=== PATIENT | female | born 1970 | race Caucasian/White ===

== ENCOUNTER 2016-10-15 00:56 | Inpatient (IN) | payer OTHER ==
[2016-10-15] VITALS (11 sets, daily range): BP systolic 99–123; BP diastolic 56–69; PULSE 58–88; RESP 18–20; TEMP 98; Ht 167.6 cm; Wt 84.0 kg
[~2016-10-15] VITALS: Ht 167.6 cm; Wt 84.0 kg
[~2016-10-15 00:56] MED LIST: DEPRESSION MEDS; FLUO20CA22; NAPR-260 PO; OMEP20CA16; TRAM50TA2 PO
[2016-10-15] MEDS ORDERED: ASPIRIN 325 MG TAB PO STA (02:05)
[2016-10-15] MEDS ORDERED: SOD CHLORIDE 0.9% 1,000 ML IV STA (02:05)
--- NOTE | 2016-10-15 02:19 | ERA ---
ER Documentation Chief Complaint Date/Time DATE: 10/15/16 TIME: 02:16 Chief Complaint PT C/O TOTAL R SIDED NUMBNESS, DIZZY, R BLURRY VISION SINCE 1600 HPI This is a 46-year-old female who stated that at 4 PM this afternoon she noticed that her right arm was tingling started to feel heavy. She states over the next couple of hours her right face and her right leg began to feel the same. She is currently complaining of right facial, right upper and right lower extremity mild tingling with heaviness. No blurry vision no loss of vision no speech change. No prior history of TIA or stroke.. She says her symptoms of gradually gotten worse over the past couple of hours so she came in for evaluation. ROS All systems reviewed and are negative except as per history of present illness. Medications Home Meds Active Scripts Naproxen* (Naprosyn*) 500 Mg Tablet, 500 MG PO BID Y for PAIN AND/OR INFLAMMATION, #30 TAB Prov:HENRIETTA HINOJOSA MD 02/22/16 Tramadol HCl (Tramadol HCl) 50 Mg Tablet, 50 MG PO Q6 Y for PAIN, #15 TAB Prov:KRISTIE MORENO NP 10/14/15 Reported Medications Omeprazole* (Omeprazole*) 20 Mg Capsule., DAILY 12/09/12 Fluoxetine Hcl* (Fluoxetine Hcl*) 20 Mg Capsule, DAILY 12/09/12 [Depression Meds] No Conflict Check 08/28/12 Allergies Allergies: Coded Allergies: No Known Allergy (Unverified , 10/13/15) PMhx/Soc History of Surgery: Yes (TUBAL LIGATION, C SECTION SECTION) Anesthesia Reaction: No Hx Neurological Disorder: No Hx Respiratory Disorders: No Hx Cardiac Disorders: No Hx Psychiatric Problems: Yes (DEPRESSION , ANXIETY) Hx Miscellaneous Medical Probl: Yes (gastritis) Hx Alcohol Use: No Hx Substance Use: No Hx Tobacco Use: No FmHx Family History: No coronary disease Physical Exam Vitals Vital Signs Date Time Temp Pulse Resp B/P Pulse Ox O2 Delivery O2 Flow Rate FiO2 10/15/16 02:14 Nasal Cannula 2 10/15/16 02:04 97 18 128/70 99 Room Air 10/15/16 01:11 97.5 92 16 134/64 99 Physical Exam Const: Well-developed, well-nourished Head: Atraumatic, normocephalic Eyes: Normal Conjunctiva, PERRLA, EOMI, normal sclera, no nystagmus ENT: Normal External Ears, Nose and Mouth, moist mucus membranes. Neck: Full range of motion. No meningismus, no lymphadenopathy. Resp: Clear to auscultation bilaterally, no wheezing, rhonchi, rales Cardio: Regular rate and rhythm, no murmurs, S1 S2 present Abd: Soft, non tender x 4, non distended. Normal bowel sounds, no guarding or rebound, no pulsitile abdominal masses or bruits Skin: No petechiae or rashes, no ecchymosis , no maculopapular rash Back: No midline or flank tenderness Ext: No cyanosis, or edema, FROM x 4, normal inspection, neurovascularly intact x 4 Neur: Awake and alert, STR 5/5 x 2, sensation intact x 2, there is slight right upper extremity pronator drift, right lower extremity strength is 3 -4 out of 5 she can only hold it up for a few seconds., Right arm and leg and face of slight tingling sensation, cerebellum intact Psych: Normal Mood and Affect Result Diagram: 10/15/16 0240 Results 24 hrs Laboratory Tests Test 10/15/16 02:40 White Blood Count 12.710^3/ul Red Blood Count 4.1310^6/ul Hemoglobin 11.2g/dl Hematocrit 34.3% Mean Corpuscular Volume 83.1fl Mean Corpuscular Hemoglobin 27.1pg Mean Corpuscular Hemoglobin Concent 32.7g/dl Red Cell Distribution Width 21.6% Platelet Count 53015^3/UL Mean Platelet Volume 11.2fl Neutrophils % 58.2% Lymphocytes % 29.5% Monocytes % 7.6% Eosinophils % 3.6% Basophils % 0.6% Nucleated Red Blood Cells % 0.0/100WBC Neutrophils # 7.410^3/ul Lymphocytes # 3.710^3/ul Monocytes # 1.010^3/ul Eosinophils # 0.510^3/ul Basophils # 0.110^3/ul Nucleated Red Blood Cells # 0.010^3/ul Prothrombin Time Pending Prothrombin Time Ratio Pending INR International Normalized Ratio Pending Activated Partial Thromboplast Time 29.7Sec Current Medications Medications (Trade) Dose Ordered Sig/López Route PRN Reason Start Time Stop Time Status Last Admin Dose Admin Sodium Chloride (NS) 1,000 ml @ 1,000 mls/hr Q1H STAT IV 10/15/16 02:05 10/15/16 03:04 DC 10/15/16 02:43 Aspirin (Aspirin) 325 mg ONCE STAT PO 10/15/16 02:05 10/15/16 02:08 DC 10/15/16 02:43 Procedures/MDM EKG: Rate/Rhythm: [Normal Sinus Rhythm,NL intervals] QRS, ST, QT: NORMAL MN, QRS, QT] Impression: [NORMAL EKG] The patient is not a TPA candidate due to onset of time is far outside of the window She received normal saline and aspirin I will admit her for stroke workup. PROCEDURE: CT Brain without contrast. CLINICAL INDICATION: Possible stroke, dizziness TECHNIQUE: A CT of the brain was performed utilizing axial imaging from the skull base through the vertex without IV contrast. Multiplanar reformatted images were made. Images were reviewed on a PACS workstation. The CTDIvol is 45.01 mGy and the DLP is 720.23 mGycm. One or more the following dose reduction techniques were utilized: Automated exposure control, adjustment of the mA/ or kV according to patient's size, or use of iterative reconstruction technique. COMPARISON: 12/09/2012 FINDINGS: There is no intracranial hemorrhage, mass effect, or midline shift. No extra- axial fluid collection is seen. The ventricles and sulci are normal in size and configuration. The density of the brain is normal, and the knight white matter differentiation appears well-preserved. The patient again appears to be status post left mastoidectomy and middle ear surgery. IMPRESSION: 1. No evidence of acute intracranial pathology. 2. The brain is normal in appearance. 3. The patient again appears to be status post left mastoidectomy and middle ear surgery. RPTAT: HJES .Issac Pelletier MD, Date Time Electronically viewed and signed by .Issac Pelletier MD, on 10/15/2016 03:13 .S/ CC: NELLY CORTEZ DO PROCEDURE: Chest. CLINICAL INDICATION: Chest pain. TECHNIQUE: Single frontal view of the chest was obtained. COMPARISON: 10/13/2015. FINDINGS: The cardiac silhouette is within normal limits. The aortic arch is unremarkable. There is no focal consolidation, vascular congestion or pleural effusion. There is no pneumothorax. IMPRESSION: No evidence for active cardiopulmonary disease. .Jose Daniel Cornell MD, MD Date Time Electronically viewed and signed by .Jose Daniel Cornell MD, MD on 10/15/2016 03:26 .T/ CC: NELLY CORTEZ DO Departure Diagnosis: Primary Impression: CVA (cerebral vascular accident) Qualified Code: I63.9 - Cerebrovascular accident (CVA), unspecified mechanism Condition: Stable NELLY CORTEZ DO October 15, 2016 02:19
[2016-10-15 03:07] LABS: ADD SCAN DIFF NO
[2016-10-15 03:12] LABS: BASOPHIL # 0.1 10^3/ul (0.0-0.1); BASOPHILS % 0.6 % (0.0-2.0); EOSINOPHILS # 0.5 10^3/ul (0.0-0.5); EOSINOPHILS % 3.6 % (0.0-7.0); HEMATOCRIT 34.3 % (37.0-47.0); HEMOGLOBIN 11.2 g/dl (12.0-16.0); LYMPHOCYTES # 3.7 10^3/ul (0.8-2.9); LYMPHOCYTES % 29.5 % (15.0-51.0); MEAN CORPUSCULAR HEMOGLOBIN 27.1 pg (29.0-33.0); MEAN CORPUSCULAR HGB CONC 32.7 g/dl (32.0-37.0); MEAN CORPUSCULAR VOLUME 83.1 fl (82.0-101.0); MEAN PLATELET VOLUME 11.2 fl (7.4-10.4); MONOCYTES % 7.6 % (0.0-11.0); NEUTROPHIL # 7.4 10^3/ul (1.6-7.5); NEUTROPHILS % 58.2 % (39.0-77.0); PLATELET COUNT 293 10^3/UL (140-415); RED BLOOD COUNT 4.13 10^6/ul (4.20-5.40); RED CELL DISTRIBUTION WIDTH 21.6 % (11.5-14.5); WHITE BLOOD COUNT 12.7 10^3/ul (4.8-10.8)
--- NOTE | 2016-10-15 03:13 | RADRPT ---
PROCEDURE: CT Brain without contrast. CLINICAL INDICATION: Possible stroke, dizziness TECHNIQUE: A CT of the brain was performed utilizing axial imaging from the skull base through the vertex without IV contrast. Multiplanar reformatted images were made. Images were reviewed on a [employer] workstation. The CTDIvol is 45.01 mGy and the DLP is 720.23 mGycm. One or more the following dose reduction techniques were utilized: Automated exposure control, adjus tment of the mA/ or kV according to patient's size, or use of iterative reconstruction technique. COMPARISON: 12/09/2012 FINDINGS: There is no intracranial hemorrhage, mass effect, or midline shift. No extra-axial fluid collection is seen. The ventricles and sulci are normal in size and configuration. The density of the brain is normal, and the knight white matter differentiation appears well-preserved. The patient again appears to be status post left mastoidectomy and middle ear surgery. IMPRESSION: 1. No evidence of acute intracranial pathology. 2. The brain is normal in appearance. 3. The patient again appears to be status post left mastoidectomy and middle ear surgery. RPTAT: HJES .Issac Pelletier MD, Date Time Electronically viewed and signed by .Issac Pelletier MD, MD on 10/15/2016 03:13 .S/
[2016-10-15 03:21] LABS: PARTIAL THROMBOPLASTIN TIME 29.7 Sec (25.0-35.0)
[2016-10-15 03:24] LABS: ALBUMIN 3.9 g/dl (3.3-4.9); CHLORIDE 105 mmol/L (97-110); POTASSIUM 3.5 mmol/L (3.5-5.1); SODIUM 140 mmol/L (135-144)
[2016-10-15 03:25] LABS: INR 1.06; PROTIME 13.8 Sec (12.2-14.2); PT RATIO 1.1
[2016-10-15 03:26] LABS: ANION GAP 12 (8-16); ASPARTATE AMINO TRANSFERASE 43 IU/L (15-46); BILIRUBIN,INDIRECT 0.2 mg/dl (0-1.1); BILIRUBIN,TOTAL 0.2 mg/dl (0.2-1.3); CARBON DIOXIDE 27 mmol/L (21-31); CREATININE 0.54 mg/dl (0.44-1.00)
--- NOTE | 2016-10-15 03:26 | RADRPT ---
PROCEDURE: Chest. CLINICAL INDICATION: Chest pain. TECHNIQUE: Single frontal view of the chest was obtained. COMPARISON: 10/13/2015. FINDINGS: The cardiac silhouette is within normal limits. The aortic arch is unremarkable. There is no focal consolidation, vascular congestion or pleural effusion. There is no pneumothorax. IMPRESSION: No evidence for active cardiopulmonary disease. .Jose Daniel Cornell MD, Date Time Electronically viewed and signed by .Jos eDaniel Cornell MD, on 10/15/2016 03:26 .T/
[2016-10-15 03:27] LABS: ALANINE AMINOTRANSFERASE 57 IU/L (13-69); ALBUMIN/GLOBULIN RATIO 1.14; ALKALINE PHOSPHATASE 120 IU/L (42-121); BLOOD UREA NITROGEN 14 mg/dl (7-20); CALCIUM 9.3 mg/dl (8.4-10.2); GLUCOSE 110 mg/dl (70-220); TOTAL PROTEIN 7.3 g/dl (6.1-8.1)
[2016-10-15] MEDS: SOD CHLORIDE 0.9% 1,000 ML IV SCH ×2 (03:29→10:21)
[2016-10-15] MEDS ORDERED: ONDANSETRON 4 MG INJ IV PRN ×2 (03:30→08:00)
[2016-10-15] MEDS ORDERED: ACETAMINOPHEN 325 MG TAB PO PRN (03:30)
[2016-10-15 03:45] LABS: TROPONIN-I < 0.012 ng/ml (0.00-0.12)
--- NOTE | 2016-10-15 06:32 | HP ---
Date/Time of Note Date/Time of Note DATE: 10/15/16 TIME: 06:19 Assessment/Plan VTE Prophylaxis VTE Prophylaxis Intervention: heparin Assessment/Plan Assessment/Plan 1. Acute CVA - Head CT was neg for acute findings - will obtain MRI of brain, carotid doppler u/s and 2D-echo - will place on aspirin and statin - Neurology consult - Physical therapy - check A1c and fasting lipids in am and trend trops 2. Hx of GERD/Gastritis - PPI HPI/ROS Admit Date/Time Admit Date/Time October 15, 2016 at 03:30 Hx of Present Illness This is a 56 yo female with history of GERD/Gastritis who presented to ER c/o right sided facial, as well as upper and lower ext numbness and tingling sensation. Also reported right upper ext weakness, which has now resolved. Main complain now is "my head is sleeping" and she points at her entire head. Denied slurred speech, seizure like activity, chest pain, SOB. On physical exam however, she has a slight left sided facial droop. Denied similar symptoms in the past. In ER, head CT was neg. vitals were stable. . PMH/Family/Social Social History Smoking Status: Never smoker Exam/Review of Systems Vital Signs Vitals Vital Signs Date Time Temp Pulse Resp B/P Pulse Ox O2 Delivery O2 Flow Rate FiO2 10/15/16 05:16 98.3 90 20 115/61 98 10/15/16 03:00 Room Air 10/15/16 02:14 2 Exam Constitutional: alert, oriented, well developed Head: atraumatic, normocephalic Eyes: EOMI, PERRL ENMT: other (left sided mild facial droop) Respiratory: clear to auscultation, normal air movement Cardiovascular: nl pulses, regular rate and rhythm Gastrointestinal: non-tender, soft Extremities: normal pulses Neurological: other (mild left sided droop. no weakness and sensations are intact) Labs Result Diagram: 10/15/16 0240 10/15/16 0240 Medications Medications Current Medications Sodium Chloride (NS) 1,000 ml @ 80 mls/hr [id number] IV ; Start 10/15/16 at 03:29; Stop 10/15/16 at 15:58 YI REBOLLAR MD October 15, 2016 06:31
[2016-10-15] MEDS ORDERED: LORAZEPAM 2 MG INJ IV PRN (08:00)
[2016-10-15] MEDS ORDERED: NACL 0.9% 3 ML SYG IV SCH (08:00)
--- NOTE | 2016-10-15 08:58 | RADRPT ---
PROCEDURE: US Carotids. CLINICAL INDICATION: bruit , TIA TECHNIQUE: Multiple sonographic of the carotid bifurcation region and vertebral arteries were obta ined utilizing knight scale, duplex and color-flow imaging. The images were reviewed on a PACS worksta tion. COMPARISON: No prior studies are available for comparison. FINDINGS: Evaluation of the right carotid bifurcation region reveals no significant calcific atherosclerotic d isease. Evaluation of the left carotid bifurcation region reveals no significant calcific atherosclerotic di sease. There is antegrade flow within the vertebral arteries bilaterally. RIGHT CAROTID MEASUREMENTS: Common Carotid Wkxman63.3 (cm/sec) Internal Carotid Artery - ikxhnzyt21.3 (cm/sec) Internal Carotid Artery - mid70.3 (cm/sec) Internal Carotid Artery - scywuh19.3 (cm/sec) Internal Carotid/Common Carotid1.23 LEFT CAROTID MEASUREMENTS: Common Carotid Nqdlxx94.2 (cm/sec) Internal Carotid Artery - zzuhpmpr09.1 (cm/sec) Internal Carotid Artery - mid46.6 (cm/sec) Internal Carotid Artery - .6 (cm/sec) Internal Carotid/Common Carotid1.07 RPTAT: AA IMPRESSION: No evidence for hemodynamically significant stenosis in the bilateral internal carotid arteries - va lidated velocity measurements with angiographic measurements, velocity criteria are extrapolated fro m diameter data as defined by the Society of Radiologists in Ultrasound Consensus Conference Radiolo gy 2003; 229;340-346. This study does indirectly reference the measurement of the distal ICA diamet er as the denominator for stenosis measurement. Normal antegrade flow in the vertebral arteries bilaterally. .Erwin Escamilla MD, Date Time Electronically viewed and signed by .Erwin Escamilla MD, MD on 10/15/2016 08:58 .S/
[2016-10-15] MEDS: FAMOTIDINE 20 MG TAB PO SCH ×2 (10:13→21:11)
[2016-10-15] MEDS: ASPIRIN 81 MG TAB PO SCH (10:14)
[2016-10-15] MEDS: ENOXAPARIN 40 MG/0.4 ML SYG SC SCH (10:16)
--- NOTE | 2016-10-15 13:59 | PN ---
Date/Time of Note Date/Time of Note DATE: 10/15/16 TIME: 13:55 Assessment/Plan VTE Prophylaxis VTE Prophylaxis Intervention: LMWH Lines/Catheters IV C[facility]ter Type [facility] Peripheral IV Assessment/Plan Chief Complaint/Hosp Course 46-year-old lady with right-sided headache with right arm weakness. Assessment: 1. Rule out acute CVA. Initial CT of the brain unremarkable carotid Dopplers are negative for significant stenosis. She still has vague discomfort face and right side of her head. 2. History of gastroesophageal reflux disease Plan 1. Neurology evaluation questionable need for MRI 2. Await echocardiogram results 3. Continue DVT and GI prophylaxis 4. Await lipid panel and HbA1c Disposition Anticipate discharge in a.m. once cleared by neurology Problems: Subjective 24 Hr Interval Summary Free Text/Dictation Patient comfortable this morning still complaining of right-sided head fullness sensation. No visual disturbance no focal deficits no nausea no vomiting no chest pain or palpitations. Exam/Review of Systems Vital Signs Vitals Vital Signs Date Time Temp Pulse Resp B/P Pulse Ox O2 Delivery O2 Flow Rate FiO2 10/15/16 12:19 77 10/15/16 11:46 97.7 20 120/69 98 10/15/16 03:00 Room Air 10/15/16 02:14 2 Exam GENERAL: Well-nourished well-developed lady comfortable at rest VITAL SIGNS: per chart NECK: Supple. No JVD or lymphadenopathy. CARDIAC EXAM: S1, S2. No added sounds or murmurs. CHEST: clear bilaterally, No added sounds, rales or wheezes ABDOMEN: Soft, nontender. No guarding or rebound. EXTREMITIES: No cyanosis, clubbing or edema. NEUROLOGIC: Generalized weakness. No focal deficits. Results Result Diagram: 10/15/16 0240 10/15/16 0240 Results 24 hrs Laboratory Tests Test 10/15/16 02:40 10/15/16 08:30 White Blood Count 12.7 H Red Blood Count 4.13 L Hemoglobin 11.2 L Hematocrit 34.3 L Mean Corpuscular Volume 83.1 Mean Corpuscular Hemoglobin 27.1 L Mean Corpuscular Hemoglobin Concent 32.7 Red Cell Distribution Width 21.6 #H Platelet Count 293 Mean Platelet Volume 11.2 H Neutrophils % 58.2 Lymphocytes % 29.5 Monocytes % 7.6 Eosinophils % 3.6 Basophils % 0.6 Nucleated Red Blood Cells % 0.0 Neutrophils # 7.4 Lymphocytes # 3.7 H Monocytes # 1.0 H Eosinophils # 0.5 Basophils # 0.1 Nucleated Red Blood Cells # 0.0 Prothrombin Time 13.8 Prothrombin Time Ratio 1.1 INR International Normalized Ratio 1.06 Activated Partial Thromboplast Time 29.7 Sodium Level 140 Potassium Level 3.5 Chloride Level 105 Carbon Dioxide Level 27 Anion Gap 12 Blood Urea Nitrogen 14 Creatinine 0.54 Glucose Level 110 Calcium Level 9.3 Total Bilirubin 0.2 Direct Bilirubin 0.00 Indirect Bilirubin 0.2 Aspartate Amino Transf (AST/SGOT) 43 Alanine Aminotransferase (ALT/SGPT) 57 Alkaline Phosphatase 120 Troponin I < 0.012 < 0.012 Total Protein 7.3 Albumin 3.9 Globulin 3.40 H Albumin/Globulin Ratio 1.14 Medications Medications Current Medications Sodium Chloride (NS) 1,000 ml @ 80 mls/hr [id number] IV Last administered on 10:21; Admin Dose 80 MLS/HR; Start 10/15/16 at 03:29; Stop 10/15/16 at 15:58 Lorazepam (Ativan) 0.5 mg Q6H PRN IV ANXIETY; Start 10/15/16 at 08:00 Ondansetron HCl (Zofran Inj) 4 mg Q6H PRN IV NAUSEA AND/OR VOMITING; Start 10/15 at 08:00 Aspirin (Aspirin) 81 mg DAILY PO Last administered on 10/15/16 10:14; Admin Dose 81 MG; Start 10/15/16 at 09:00 Acetaminophen (Tylenol Tab) 650 mg Q6H PRN PO PAIN LEVEL 1-3 OR FEVER; Start at 08:00 Famotidine (Pepcid) 20 mg Q12 PO Last administered on 10/15/16 10:13; Admin Dose 20 MG; Start 10/15/16 at 09:00 Enoxaparin Sodium (Lovenox) 40 mg DAILY SC Last administered on 10/15/16 10:16 ; Admin Dose 40 MG; Start 10/15/16 at 09:00 Atorvastatin Calcium (Lipitor) 20 mg HS PO ; Start 10/15/16 at 21:00 JESUS MORALES MD, [facility] October 15, 2016 13:59
--- NOTE | 2016-10-15 14:01 | RADRPT ---
Echocardiogram Report Patient Name: NANO BARROW Gender: Female Date: 1970 Study Date: 15-Oct-2016 Field Reimbursement Manager: Aonop Carmona [facility] Location: [id number] Ref. Physician: YI REBOLLAR Quality: Good Procedures: Transthoracic echocardiogram with complete 2D, M-Mode, and doppler examination. Indications: Transient Ischemic Attack. 2D/M Mode Doppler Measurement Value Normal Ranges Measurement Value Normal Ranges LVIDd 2D 5.3 3.5 - 5.6 cm AV Peak Sai 1.3 m/sec LVIDs 2D 3.1 2.1 - 4.1 cm AV Peak PG 6.5 mmHg LVPWd 2D 0.9 0.6 - 1.1 cm MV E Peak Sai 0.9 m/sec IVSd 2D 1.0 0.6 - 1.1 cm MV A Peak Sai 1.0 m/sec AoR Diam 2D 2.8 2.0 - 3.7 cm MV E/A 0.9 EDV 2D 133.8 cm3 MV Decel Time 95 msec ESV 2D 30.7 cm3 MV Decel Hardeman 9 LA Dimen 2D 3.7 2.3 - 4.0 cm MV E/A 0.9 TR Peak Sai 1.9 m/sec TR Peak PG 14.0 mmHg RVSP 17.0 mmHg Findings Left Ventricle: Normal left ventricular systolic function. Normal left ventricular cavity size. Normal left ventricular wall thickness. Ejection fraction is visually estimated at 55 %. Tissue Doppler/Mitral Doppler indices are within normal limits. Right Ventricle: Normal right ventricular size. Normal right ventricular systolic function. Left Atrium: The left atrium is normal in size. Right Atrium: The right atrium is normal in size. Mitral Valve: Normal appearance and function of the mitral valve with trace physiologic regurgitation. Aortic Valve: Normal appearance of the aortic valve. No significant aortic stenosis or insufficiency. Tricuspid Valve: Normal appearance and function of the tricuspid valve with trace physiologic regurgitation. Normal right ventricular systolic pressure. Estimated peak PA systolic pressure 17 mmHg. Pulmonic Valve: Normal pulmonic valve appearance. Pericardium: Normal pericardium with no significant pericardial effusion. Aorta: Normal aortic root. IVC: Normal size and normal respiratory collapse consistent with normal right atrial pressure. Conclusions 1.Normal left ventricular systolic function. Normal left ventricular cavity size. Normal left ventricular wall thickness. Ejection fraction is visually estimated at 55 %. Tissue Doppler/Mitral Doppler indices are within normal limits. 2.Normal appearance and function of the mitral valve with trace physiologic regurgitation. 3.Normal appearance of the aortic valve. No significant aortic stenosis or insufficiency. 4.Normal appearance and function of the tricuspid valve with trace physiologic regurgitation. Normal right ventricular systolic pressure. Estimated peak PA systolic pressure 17 mmHg. Electronically Signed By: Lacho Graham 15-Oct-2016 14:00:04 -0700 Patient Name: NANO BARROW Study Date: 15-Oct-2016 [id number]
[2016-10-15] MEDS: ACETAMINOPHEN 325 MG TAB PO PRN (14:30)
[2016-10-15] MEDS: GABAPENTIN 300 MG CAP PO SCH (21:11)
[2016-10-15] MEDS: ATORVASTATIN 20 MG TAB PO SCH (21:11)
--- NOTE | 2016-10-15 23:47 | CONS ---
DATE OF ADMISSION: 10/15/2016 DATE OF CONSULTATION: TYPE OF CONSULTATION: Neurology Thank you, Dr. Meng, for your kind referral for evaluation of possible stroke. HISTORY OF PRESENT ILLNESS: The patient is a 46-year-old lady with past medical history of gastriti s and mild anemia who presented with complaints of right-sided numbness. Also, she was complaining of, at some point, right upper extremity weakness, which resolved. CAT scan of the head did not imtiaz w any abnormality. She complains of intermittent numbness in the scalp at times unilateral or bilat eral. She states that numbness in the scalp is present on and off mildly for approximately a year. She denied any headaches, but stated that lately she has been noticing some discomfort in the occip ital area and neck. She had carotid ultrasound done, which did not show any hemodynamically signifi cant lesions. Brain CAT scan was normal. Chest x-ray within normal limits. EKG normal sinus rhyth m. Normal echocardiogram. Labs show a WBC count 12.7, hemoglobin 11, hematocrit 34, platelets 293. Comprehensive metabolic panel within normal limits, negative troponins, normal PT and PTT. MEDICATIONS PRIOR TO ADMISSION: 1. Prozac 20 mg daily. 2. Naprosyn. 3. Tramadol. 4. Omeprazole. PAST MEDICAL HISTORY: Apparently she has history of depression. CURRENT MEDICATIONS: She is on: 1. Lipitor 20 mg. 2. Aspirin 81 mg. 3. Pepcid. 4. Lovenox. ALLERGIES: NONE. SOCIAL HISTORY: No alcohol, tobacco, drug use. FAMILY HISTORY: Noncontributory. REVIEW OF SYSTEMS: All pertinent positives included in the above history of present illness. PHYSICAL EXAMINATION: VITAL SIGNS: On examination today, 97.7 temperature, 58 pulse, 20 respirations, 110/57 blood pressu re. GENERAL: She is not in acute distress, lying in bed. HEENT: Normocephalic, atraumatic head. NECK: No carotid bruits. No thyromegaly. LUNGS: Clear to auscultation bilaterally. CARDIAC: Normal cardiac rhythm and sounds. ABDOMEN: Soft, nontender. EXTREMITIES: No cyanosis, clubbing, or edema. NEUROLOGIC: She is awake, alert, and oriented x3 with fluent speech. CRANIAL NERVES: Shows intact visual haro bilaterally. Pupils round, reactive to light from 3 to 2 mm bilaterally. Extraocular movements intact without nystagmus. Symmetrical face. Preserved fac ial strength and sensation. Tongue is in midline. Palate elevates symmetrically. MOTOR STRENGTH: Seems to be preserved in all extremities. Normal bulk, tone, and strength. SENSORY: Intact to light touch and pain. DEEP TENDON REFLEXES: 2+ throughout. Downgoing toes bilaterally. COORDINATION: Preserved on sksskv-sd-wwluty testing. No dysmetria or tremor. GAIT: Not assessed. The patient denied any problem ambulating. I forgot to mention, the patient has tenderness to palpation over superior nuchal lines bilaterally. IMPRESSION: Transient right-sided numbness and to some extent weakness in the right upper extremity , all resolved. Etiology? TIA? MS? The patient complains of numbness in the scalp intermittently bilaterally or unilaterally for approximately 1 year. There is also some tenderness to palpation o ngoc occipital nerves of the scalp. My plan is to continue aspirin and statin so far. We will obtain MRI of the brain with and without contrast for occipital discomfort. Start her on gabapentin 300 mg at bedtime. Continue current constance atment. We will follow results of the testing. Thank you very much for this interesting consultation. Dictated By: LIZBETH WALKER/SERGIO Conf#: [id number] DID#: [id number] CC: YI REBOLLAR MD; KARLI MENG MD;*[facility]*
[2016-10-16] VITALS (12 sets, daily range): BP systolic 94–122; BP diastolic 54–72; PULSE 58–84; RESP 19–20
[2016-10-16 06:38] LABS: ADD SCAN DIFF NO
[2016-10-16 06:41] LABS: BASOPHIL # 0.1 10^3/ul (0.0-0.1); BASOPHILS % 0.6 % (0.0-2.0); EOSINOPHILS # 0.4 10^3/ul (0.0-0.5); EOSINOPHILS % 4.3 % (0.0-7.0); HEMATOCRIT 32.2 % (37.0-47.0); HEMOGLOBIN 10.7 g/dl (12.0-16.0); LYMPHOCYTES # 3.2 10^3/ul (0.8-2.9); LYMPHOCYTES % 35.1 % (15.0-51.0); MEAN CORPUSCULAR HEMOGLOBIN 27.9 pg (29.0-33.0); MEAN CORPUSCULAR HGB CONC 33.2 g/dl (32.0-37.0); MEAN CORPUSCULAR VOLUME 83.9 fl (82.0-101.0); MEAN PLATELET VOLUME 11.2 fl (7.4-10.4); MONOCYTE # 0.7 10^3/ul (0.3-0.9); MONOCYTES % 7.8 % (0.0-11.0); NEUTROPHIL # 4.8 10^3/ul (1.6-7.5); NEUTROPHILS % 51.6 % (39.0-77.0); PLATELET COUNT 262 10^3/UL (140-415); RED BLOOD COUNT 3.84 10^6/ul (4.20-5.40); RED CELL DISTRIBUTION WIDTH 21.5 % (11.5-14.5); WHITE BLOOD COUNT 9.2 10^3/ul (4.8-10.8)
[2016-10-16 06:55] LABS: ALBUMIN 3.2 g/dl (3.3-4.9); ALBUMIN/GLOBULIN RATIO 1.03; BILIRUBIN,INDIRECT 0.2 mg/dl (0-1.1); BILIRUBIN,TOTAL 0.2 mg/dl (0.2-1.3); CALCIUM 8.6 mg/dl (8.4-10.2); CHOL/HDL RATIO 3.8 RATIO; CREATININE 0.49 mg/dl (0.44-1.00); MAGNESIUM 1.6 mg/dl (1.7-2.5); POTASSIUM 3.8 mmol/L (3.5-5.1); TOTAL PROTEIN 6.3 g/dl (6.1-8.1)
[2016-10-16 06:59] LABS: POTASSIUM 3.8 mmol/L (3.5-5.1)
[2016-10-16 07:01] LABS: CREATININE 0.52 mg/dl (0.44-1.00)
[2016-10-16 07:02] LABS: CALCIUM 8.9 mg/dl (8.4-10.2)
[2016-10-16 07:22] LABS: THYROID STIMULATING HORMONE 2.69 MIU/L (0.465-4.680)
[2016-10-16] MEDS: ACETAMINOPHEN 325 MG TAB PO PRN ×3 (08:16→20:20)
[2016-10-16] MEDS: ASPIRIN 81 MG TAB PO SCH (08:17)
[2016-10-16] MEDS: FAMOTIDINE 20 MG TAB PO SCH ×2 (08:17→20:20)
[2016-10-16] MEDS: ENOXAPARIN 40 MG/0.4 ML SYG SC SCH (08:21)
--- NOTE | 2016-10-16 13:16 | PN ---
Date/Time of Note Date/Time of Note DATE: 10/16/16 TIME: 13:11 Assessment/Plan VTE Prophylaxis VTE Prophylaxis Intervention: ambulation Lines/Catheters IV C[facility] Type [facility]from [facility] Peripheral IV Assessment/Plan Chief Complaint/Hosp Course 46-year-old lady with right-sided headache with right arm weakness. Assessment: 1. Rule out acute CVA. Initial CT of the brain unremarkable carotid Dopplers are negative for significant stenosis. She still has vague discomfort face and right side of her head. Appreciate neurology recommendations 2. History of gastroesophageal reflux disease 3. Hypo-magnesium Plan 1. Neurology recommendations, MRI today, start gabapentin. 2. Echocardiogram within normal limits 3. Continue DVT and GI prophylaxis 4. Hypertriglyceridemia 5. Replace magnesium Disposition Likely discharge tomorrow if imaging is unremarkable Problems: Subjective 24 Hr Interval Summary Free Text/Dictation Patient still complaining of vague discomfort right side of her face No visual disturbance no nausea vomiting Exam/Review of Systems Vital Signs Vitals Vital Signs Date Time Temp Pulse Resp B/P Pulse Ox O2 Delivery O2 Flow Rate FiO2 10/16/16 12:10 97.9 78 19 122/72 98 10/15/16 03:00 Room Air 10/15/16 02:14 2 Intake and Output 10/15/16 10/15/16 10/16/16 15:00 23:00 07:00 Intake Total 800 ml 400 ml Balance 800 ml 400 ml Exam GENERAL: Well-nourished well-developed lady comfortable at rest VITAL SIGNS: per chart NECK: Supple. No JVD or lymphadenopathy. CARDIAC EXAM: S1, S2. No added sounds or murmurs. CHEST: clear bilaterally, No added sounds, rales or wheezes ABDOMEN: Soft, nontender. No guarding or rebound. EXTREMITIES: No cyanosis, clubbing or edema. NEUROLOGIC: Generalized weakness. No focal deficits. Results Result Diagram: 10/16/16 0615 10/16/16 0616 Results 24 hrs Laboratory Tests Test 10/15/16 13:47 10/16/16 06:15 10/16/16 06:16 Troponin I < 0.012 White Blood Count 9.2 # Red Blood Count 3.84 L Hemoglobin 10.7 L Hematocrit 32.2 L Mean Corpuscular Volume 83.9 Mean Corpuscular Hemoglobin 27.9 L Mean Corpuscular Hemoglobin Concent 33.2 Red Cell Distribution Width 21.5 H Platelet Count 262 Mean Platelet Volume 11.2 H Neutrophils % 51.6 Lymphocytes % 35.1 Monocytes % 7.8 Eosinophils % 4.3 Basophils % 0.6 Nucleated Red Blood Cells % 0.0 Neutrophils # 4.8 Lymphocytes # 3.2 H Monocytes # 0.7 Eosinophils # 0.4 Basophils # 0.1 Nucleated Red Blood Cells # 0.0 Sodium Level 136 Potassium Level 3.8 Chloride Level 107 Carbon Dioxide Level 26 Anion Gap 7 L Blood Urea Nitrogen 10 Creatinine 0.49 Glucose Level 85 Hemoglobin A1c 5.0 Calcium Level 8.6 Magnesium Level 1.6 L Total Bilirubin 0.2 Direct Bilirubin 0.00 Indirect Bilirubin 0.2 Aspartate Amino Transf (AST/SGOT) 28 Alanine Aminotransferase (ALT/SGPT) 49 Alkaline Phosphatase 97 Total Protein 6.3 # Albumin 3.2 L Globulin 3.10 Albumin/Globulin Ratio 1.03 Triglycerides Level 238 H Cholesterol Level 140 LDL Cholesterol, Calculated 56 HDL Cholesterol 36 Cholesterol/HDL Ratio 3.8 Thyroid Stimulating Hormone (TSH) 2.690 Medications Medications Current Medications Lorazepam (Ativan) 0.5 mg Q6H PRN IV ANXIETY; Start 10/15/16 at 08:00 Ondansetron HCl (Zofran Inj) 4 mg Q6H PRN IV NAUSEA AND/OR VOMITING; Start 10/15 at 08:00 Aspirin (Aspirin) 81 mg DAILY PO Last administered on 10/16/16 08:17; Admin Dose 81 MG; Start 10/15/16 at 09:00 Acetaminophen (Tylenol Tab) 650 mg Q6H PRN PO PAIN LEVEL 1-3 OR FEVER Last administered on 10/16/16 08:16; Admin Dose 650 MG; Start 10/15/16 at 08:00 Famotidine (Pepcid) 20 mg Q12 PO Last administered on 10/16/16 08:17; Admin Dose 20 MG; Start 10/15/16 at 09:00 Enoxaparin Sodium (Lovenox) 40 mg DAILY SC Last administered on 10/16/16 08:21 ; Admin Dose 40 MG; Start 10/15/16 at 09:00 Atorvastatin Calcium (Lipitor) 20 mg HS PO Last administered on 10/15/16 21:11 ; Admin Dose 20 MG; Start 10/15/16 at 21:00 Gabapentin (Neurontin) 300 mg QHS PO Last administered on 10/15/16t 21:11; Admin Dose 300 MG; Start 10/15/16 at 21:00 J[facility]ALES MD, [facility] October 16, 2016 13:16
[2016-10-16] MEDS ORDERED: MAGNESIUM SULFATE 2 GM/50 ML 50 ML IVPB ONE (13:30)
[2016-10-16] MEDS ORDERED: morphine 2 MG INJ IV PRN (19:00)
[2016-10-16] MEDS: ATORVASTATIN 20 MG TAB PO SCH (20:19)
[2016-10-16] MEDS: GABAPENTIN 300 MG CAP PO SCH (20:20)
[2016-10-17] VITALS (11 sets, daily range): BP systolic 94–122; BP diastolic 56–71; PULSE 57–70; RESP 18
[2016-10-17 01:05] LABS: ADD UMIC YES; URINE BILIRUBIN (Dip) NEGATIVE (NEGATIVE); URINE BLOOD (Dip) 1+ (NEGATIVE); URINE COLOR LT. YELLOW (YELLOW); URINE GLUCOSE (Dip) NEGATIVE (NEGATIVE); URINE KETONES (Dip) NEGATIVE (NEGATIVE); URINE LEUKOCYTE ESTERASE (Dip) TRACE (NEGATIVE); URINE NITRITE (Dip) NEGATIVE (NEGATIVE); URINE TOTAL PROTEIN (Dip) NEGATIVE (NEGATIVE); URINE UROBILINOGEN (Dip) 0.2 E.U./dL (0.1-1.0)
[2016-10-17 01:36] LABS: BACTERIA,URINE FEW; SQUAMOUS EPITHELIAL CELL,UR FEW
[2016-10-17 08:08] LABS: ADD SCAN DIFF NO
[2016-10-17 08:26] LABS: BASOPHIL # 0.1 10^3/ul (0.0-0.1); BASOPHILS % 0.6 % (0.0-2.0); EOSINOPHILS # 0.3 10^3/ul (0.0-0.5); EOSINOPHILS % 3.4 % (0.0-7.0); HEMOGLOBIN 11.7 g/dl (12.0-16.0); LYMPHOCYTES # 2.6 10^3/ul (0.8-2.9); LYMPHOCYTES % 25.9 % (15.0-51.0); MEAN CORPUSCULAR HEMOGLOBIN 27.9 pg (29.0-33.0); MEAN CORPUSCULAR HGB CONC 33.4 g/dl (32.0-37.0); MEAN CORPUSCULAR VOLUME 83.3 fl (82.0-101.0); MEAN PLATELET VOLUME 11.8 fl (7.4-10.4); MONOCYTE # 0.8 10^3/ul (0.3-0.9); MONOCYTES % 7.8 % (0.0-11.0); NEUTROPHIL # 6.1 10^3/ul (1.6-7.5); NEUTROPHILS % 61.9 % (39.0-77.0); PLATELET COUNT 296 10^3/UL (140-415); WHITE BLOOD COUNT 9.9 10^3/ul (4.8-10.8)
[2016-10-17 08:35] LABS: POTASSIUM 3.6 mmol/L (3.5-5.1)
[2016-10-17 08:38] LABS: CREATININE 0.55 mg/dl (0.44-1.00)
[2016-10-17 08:39] LABS: CALCIUM 8.9 mg/dl (8.4-10.2); MAGNESIUM 1.8 mg/dl (1.7-2.5); PHOSPHORUS 4.1 mg/dl (2.5-4.9)
[2016-10-17] MEDS: FAMOTIDINE 20 MG TAB PO SCH ×2 (09:02→20:50)
[2016-10-17] MEDS: ASPIRIN 81 MG TAB PO SCH (09:02)
[2016-10-17] MEDS: ENOXAPARIN 40 MG/0.4 ML SYG SC SCH (09:06)
[2016-10-17] MEDS: ACETAMINOPHEN 325 MG TAB PO PRN (09:09)
--- NOTE | 2016-10-17 11:39 | RADRPT ---
PROCEDURE: MRI Brain without and with contrast. CLINICAL INDICATION: Intermittent numbness, headaches. TECHNIQUE: An MRI of the brain was performed utilizing the following sequences: Sagittal T1-weigh tony, axial T2-weighted, axial FLAIR, axial T1, coronal GRE axial diffusion-weighted with ADC mapping . Following the uneventful administration of 10 cc Magnevist, postcontrast axial and coronal T1-weig hted images were obtained. Images were viewed on a PACS workstation. COMPARISON: Brain CT 10/15/2016 FINDINGS: No diffusion weighted abnormalities are seen to suggest the presence of acute ischemia or recent inf arct. There is no intracranial hemorrhage, mass effect, or midline shift. No extra-axial fluid col lection is seen. The ventricles and sulci are age-appropriate. The gradient echo images reveal no areas of susceptibility artifact to suggest blood degradation pro ducts or abnormal calcification. No abnormal intraparenchymal, meningeal or ependymal enhancement i s seen. No abnormal intracranial vascular flow voids are noted. The pituitary and sella reveal no abnormali ty. The suprasellar cistern is clear. The visualized paranasal sinuses are clear. The mastoid air cells are clear. IMPRESSION: 1. No acute intracranial hemorrhage, infarction or mass. No intracranial abnormal parenchymal signa l intensity or enhancement. RPTAT: EE .Michelle Robbins MD, MD Date Time Electronically viewed and signed by .Michelle Robbins MD, MD on 10/17/2016 11:39 .N/
--- NOTE | 2016-10-17 12:52 | PN ---
Date/Time of Note Date/Time of Note DATE: 10/17/16 TIME: 12:50 Assessment/Plan VTE Prophylaxis VTE Prophylaxis Intervention: LMWH Lines/Catheters IV [facility] (from [facility] Saline Lock Urinary Cath still in place: No Assessment/Plan Chief Complaint/Hosp Course 46-year-old lady with right-sided headache with right arm weakness. Assessment: 1. Rule out acute CVA. Initial CT of the brain unremarkable carotid Dopplers are negative for significant stenosis. She still has vague discomfort face and right side of her head. Appreciate neurology recommendations. CT head and MRI of the brain are both unremarkable 2. History of gastroesophageal reflux disease 3. Hypo-magnesium Plan 1. Neurology recommendations anticipate discharge soon. 2. Echocardiogram within normal limits 3. Continue DVT and GI prophylaxis 4. Hypertriglyceridemia 5. Replace magnesium Disposition Anticipate discharge soon. Problems: Subjective 24 Hr Interval Summary Free Text/Dictation Patient stable following MRI this morning Denies shortness of breath or chest pain Complaining of lightheaded and right arm altered sensation and weakness Exam/Review of Systems Vital Signs Vitals Vital Signs Date Time Temp Pulse Resp B/P Pulse Ox O2 Delivery O2 Flow Rate FiO2 10/17/16 11:50 98.4 78 18 103/69 97 10/15/16 03:00 Room Air 10/15/16 02:14 2 Intake and Output 10/16/16 10/16/16 10/17/16 15:00 23:00 07:00 Intake Total 700 ml 200 ml Balance 700 ml 200 ml Exam GENERAL: VITAL SIGNS: per chart NECK: Supple. No JVD or lymphadenopathy. CARDIAC EXAM: S1, S2. No added sounds or murmurs. CHEST: clear bilaterally, No added sounds, rales or wheezes ABDOMEN: Soft, nontender. No guarding or rebound. EXTREMITIES: No cyanosis, clubbing or edema. NEUROLOGIC: No focal deficits equal power both left and right upper and lower extremities Results CT head unremarkable MRI brain unremarkable Result Diagram: 10/17/16 0657 10/17/16 0657 Results 24 hrs Laboratory Tests Test 10/17/16 00:15 10/17/16 06:57 Urine Color LT. YELLOW Urine Clarity CLEAR Urine pH 6.0 Urine Specific [place] 1.025 Urine Ketones NEGATIVE Urine Nitrite NEGATIVE Urine Bilirubin NEGATIVE Urine Urobilinogen 0.2 E.U./dL Urine Leukocyte Esterase TRACE H Urine Microscopic RBC 2-5 Urine Microscopic WBC 0-2 Urine Squamous Epithelial Cells FEW Urine Bacteria FEW Urine Hemoglobin 1+ H Urine Glucose NEGATIVE Urine Total Protein NEGATIVE White Blood Count 9.9 Red Blood Count 4.20 Hemoglobin 11.7 L Hematocrit 35.0 L Mean Corpuscular Volume 83.3 Mean Corpuscular Hemoglobin 27.9 L Mean Corpuscular Hemoglobin Concent 33.4 Red Cell Distribution Width 21.0 H Platelet Count 296 Mean Platelet Volume 11.8 H Neutrophils % 61.9 Lymphocytes % 25.9 Monocytes % 7.8 Eosinophils % 3.4 Basophils % 0.6 Nucleated Red Blood Cells % 0.0 Neutrophils # 6.1 Lymphocytes # 2.6 Monocytes # 0.8 Eosinophils # 0.3 Basophils # 0.1 Nucleated Red Blood Cells # 0.0 Sodium Level 139 Potassium Level 3.6 Chloride Level 103 Carbon Dioxide Level 27 Anion Gap 13 Blood Urea Nitrogen 12 Creatinine 0.55 Glucose Level 83 Calcium Level 8.9 Phosphorus Level 4.1 Magnesium Level 1.8 Medications Medications Current Medications Lorazepam (Ativan) 0.5 mg Q6H PRN IV ANXIETY; Start 10/15/16 at 08:00 Ondansetron HCl (Zofran Inj) 4 mg Q6H PRN IV NAUSEA AND/OR VOMITING; Start 10/15 at 08:00 Aspirin (Aspirin) 81 mg DAILY PO Last administered on 10/17/16 09:02; Admin Dose 81 MG; Start 10/15/16 at 09:00 Acetaminophen (Tylenol Tab) 650 mg Q6H PRN PO PAIN LEVEL 1-3 OR FEVER Last administered on 10/17/16 09:09; Admin Dose 650 MG; Start 10/15/16 at 08:00 Famotidine (Pepcid) 20 mg Q12 PO Last administered on 10/17/16 09:02; Admin Dose 20 MG; Start 10/15/16 at 09:00 Enoxaparin Sodium (Lovenox) 40 mg DAILY SC Last administered on 10/17/16 09:06 ; Admin Dose 40 MG; Start 10/15/16 at 09:00 Atorvastatin Calcium (Lipitor) 20 mg HS PO Last administered on 10/16/16 20:19 ; Admin Dose 20 MG; Start 10/15/16 at 21:00 Gabapentin (Neurontin) 300 mg QHS PO Last administered on 10/16/16 20:20; Admin Dose 300 MG; Start 10/15/16 at 21:00 Morphine Sulfate (morphine) 2 mg Q4H PRN IV pain Last administered on 10/16/16 21:42; Admin Dose 2 MG; Start 10/16/16 at 19:00 JEUSS [facility]ALES MD, [facility] October 17, 2016 12:52
[2016-10-17] MEDS: HYDROCODONE/APAP (5/325) TAB PO PRN ×3 (12:57→20:50)
--- NOTE | 2016-10-17 19:48 | CONS ---
Date/Time of Note Date/Time of Note DATE: 10/17/16 TIME: 19:42 Consult Date/Type/Reason Admit Date/Time October 15, 2016 at 03:30 Initial Consult Date Type of Consultation: neurology Subjective Mild headache in AM, also c/o right shoulder and arm pain, no numbness/ weakness. Gives hx of work related accident/arm pain on-off x 1 year, was told that needs some surgery. Objective Vital Signs Date Time Temp Pulse Resp B/P Pulse Ox O2 Delivery O2 Flow Rate FiO2 10/17/16 16:20 98.4 70 18 115/71 92 10/15/16 03:00 Room Air 10/15/16 02:14 2 Intake and Output 10/16/16 10/16/16 10/17/16 15:00 23:00 07:00 Intake Total 700 ml 200 ml Balance 700 ml 200 ml Results/Medications Result Diagram: 10/17/16 0657 10/17/16 0657 Results 24 hrs Laboratory Tests Test 10/17/16 00:15 10/17/16 06:57 Urine Color LT. YELLOW Urine Clarity CLEAR Urine pH 6.0 Urine Specific [place] 1.025 Urine Ketones NEGATIVE Urine Nitrite NEGATIVE Urine Bilirubin NEGATIVE Urine Urobilinogen 0.2 E.U./dL Urine Leukocyte Esterase TRACE H Urine Microscopic RBC 2-5 Urine Microscopic WBC 0-2 Urine Squamous Epithelial Cells FEW Urine Bacteria FEW Urine Hemoglobin 1+ H Urine Glucose NEGATIVE Urine Total Protein NEGATIVE White Blood Count 9.9 Red Blood Count 4.20 Hemoglobin 11.7 L Hematocrit 35.0 L Mean Corpuscular Volume 83.3 Mean Corpuscular Hemoglobin 27.9 L Mean Corpuscular Hemoglobin Concent 33.4 Red Cell Distribution Width 21.0 H Platelet Count 296 Mean Platelet Volume 11.8 H Neutrophils % 61.9 Lymphocytes % 25.9 Monocytes % 7.8 Eosinophils % 3.4 Basophils % 0.6 Nucleated Red Blood Cells % 0.0 Neutrophils # 6.1 Lymphocytes # 2.6 Monocytes # 0.8 Eosinophils # 0.3 Basophils # 0.1 Nucleated Red Blood Cells # 0.0 Sodium Level 139 Potassium Level 3.6 Chloride Level 103 Carbon Dioxide Level 27 Anion Gap 13 Blood Urea Nitrogen 12 Creatinine 0.55 Glucose Level 83 Calcium Level 8.9 Phosphorus Level 4.1 Magnesium Level 1.8 Medications Current Medications Lorazepam (Ativan) 0.5 mg Q6H PRN IV ANXIETY; Start 10/15/16 at 08:00 Ondansetron HCl (Zofran Inj) 4 mg Q6H PRN IV NAUSEA AND/OR VOMITING; Start 10/15 at 08:00 Aspirin (Aspirin) 81 mg DAILY PO Last administered on 10/17/16 09:02; Admin Dose 81 MG; Start 10/15/16 at 09:00 Acetaminophen (Tylenol Tab) 650 mg Q6H PRN PO PAIN LEVEL 1-3 OR FEVER Last administered on 10/17/16 09:09; Admin Dose 650 MG; Start 10/15/16 at 08:00 Famotidine (Pepcid) 20 mg Q12 PO Last administered on 10/17/16 09:02; Admin Dose 20 MG; Start 10/15/16 at 09:00 Enoxaparin Sodium (Lovenox) 40 mg DAILY SC Last administered on 10/17/16 09:06 ; Admin Dose 40 MG; Start 10/15/16 at 09:00 Atorvastatin Calcium (Lipitor) 20 mg HS PO Last administered on 10/16/16 20:19 ; Admin Dose 20 MG; Start 10/15/16 at 21:00 Gabapentin (Neurontin) 300 mg QHS PO Last administered on 10/16/16 20:20; Admin Dose 300 MG; Start 10/15/16 at 21:00 Morphine Sulfate (morphine) 2 mg Q4H PRN IV pain Last administered on 10/16/16 21:42; Admin Dose 2 MG; Start 10/16/16 at 19:00 Acetaminophen/ Hydrocodone Bitart ([place] (5/325)) 1 tab Q4H PRN PO pain Last administered on 10/17/16 17:05; Admin Dose 1 TAB; Start 10/17/16 at 13:00 Assessment/Plan Chief Complaint/Hosp Course PHYSICAL EXAMINATION: GENERAL: She is not in acute distress, lying in bed. HEENT: Normocephalic, atraumatic head. tenderness to palpation over superior nuchal lines bilaterally. NECK: No carotid bruits. No thyromegaly. LUNGS: Clear to auscultation bilaterally. CARDIAC: Normal cardiac rhythm and sounds. ABDOMEN: Soft, nontender. EXTREMITIES: No cyanosis, clubbing, or edema. NEUROLOGIC: She is awake, alert, and oriented x3 with fluent speech. CRANIAL NERVES: Shows intact visual haro bilaterally. Pupils round, reactive to light from 3 to 2 mm bilaterally. Extraocular movements intact without nystagmus. Symmetrical face. Preserved facial strength and sensation. Tongue is in midline. Palate elevates symmetrically. MOTOR STRENGTH: Seems to be preserved in all extremities. Normal bulk, tone, and strength. Some give way secondary to pain in the right UE SENSORY: Intact to light touch and pain. DEEP TENDON REFLEXES: 2+ throughout. Downgoing toes bilaterally. COORDINATION: Preserved on [id number] testing. No dysmetria or tremor. GAIT: Not assessed. The patient denied any problem ambulating. IMPRESSION: Transient right-sided numbness with some RUE weakness, all resolved. Etiology? TIA? The patient complains of numbness in the scalp intermittently bilaterally or unilaterally for approximately 1 year. There is also some tenderness to palpation over occipital nerves of the scalp. Possible tension headaches/occipital neuralgia. MRI WNL. as well as car US, echo, EKG. Chronic RUE pain My plan is to continue aspirin and statin so far. Continue gabapentin 300 mg. OK to d/c home. Problems: LIZBETH OLIVER MD October 17, 2016 19:47
[2016-10-17] MEDS ORDERED: ALPRAZOLAM 0.25 MG TAB PO PRN (20:30)
[2016-10-17] MEDS: GABAPENTIN 300 MG CAP PO SCH (20:50)
[2016-10-17] MEDS: ATORVASTATIN 20 MG TAB PO SCH (20:50)
[2016-10-18] VITALS (8 sets, daily range): BP systolic 92–127; BP diastolic 55–65; PULSE 59–78; RESP 16–20
[2016-10-18] MEDS: FAMOTIDINE 20 MG TAB PO SCH (08:29)
[2016-10-18] MEDS: ASPIRIN 81 MG TAB PO SCH (08:29)
[2016-10-18] MEDS: ENOXAPARIN 40 MG/0.4 ML SYG SC SCH (08:30)
[2016-10-18] MEDS: ACETAMINOPHEN 325 MG TAB PO PRN (11:00)
--- NOTE | 2016-10-18 12:03 | PDOCDIS ---
Discharge Instructions DIAGNOSIS Discharge Diagnosis: temporal neuralgia CONDITION Patient Condition: Good HOME CARE INSTRUCTIONS: Diet Instructions: Reduced SodiumSpecial Diet: CARDIAC ACTIVITY: Activity Restrictions: No Restrictions FOLLOW UP/APPOINTMENTS Appointments senior loss control specialist 1 week. JESUS MORALES MD, [facility] October 18, 2016 12:02
[2016-10-18] MEDS ORDERED: ATOR20TA65 PO (12:04)
[2016-10-18] MEDS ORDERED: GABA300C16 PO (12:04)
--- NOTE | 2016-10-18 12:36 | DS ---
DATE OF ADMISSION: 10/15/2016 DATE OF DISCHARGE: 10/18/2016 DISCHARGE DIAGNOSIS: Probable tension headache versus occipital neuralgia. SUMMARY: This is a pleasant 46-year-old lady presenting with a 1-year history of right-sided occipi shannan scalp tenderness, facial discomfort and altered sensation. She had an extensive workup during t his admission including a CT of the brain which was unremarkable, MRI of the brain which was also un remarkable, carotid Dopplers which were negative for significant occlusion, CT of the chest which wa s unremarkable, an echocardiogram which showed a preserved ejection fraction and no significant abn ormalities. The patient's condition has remained stable throughout. Labs have been within normal l imits. She is to be discharged home on gabapentin 300 mg p.o. daily per neurology recommendations, and should follow up with her primary care physician for management of hypertriglyceridemia. CONDITION ON DISCHARGE: Stable. ACTIVITY: No restrictions. DIET: Regular. Dictated By: JESUS KAPOOR/SERGIO Conf#: [id number] DID#: [id number]
== END 2016-10-18 15:45 | disposition home or self-care (01) | DRG 552 ==
LOC: E/R 00:56 → MS4 03:30
PROVIDERS: ADMIT Internal Medicine; ATTEND Internal Medicine
DX: M54.81 Occipital neuralgia (principal); E83.42 Hypomagnesemia; E78.1 Pure hyperglyceridemia; G44.209 Tension-type headache, unspecified, not intractable; K21.9 Gastro-esophageal reflux disease without esophagitis
CPT/HCPCS: 36415; 70450; 70553; 71010; 80048; 80053; 80061; 81001; 81003; 83036; 83735; 84100; 84443; 84484; 85025; 85610; 85730; 87086; 93005; 93306; 93880; J1650; J2270; J3475; J7030

== ENCOUNTER 2016-10-22 10:57 | Emergency (ER) | payer OTHER ==
[~2016-10-22] VITALS: Ht 167.6 cm; Wt 79.0 kg
[~2016-10-22 10:57] MED LIST changes: +ATOR20TA65 PO; +GABA300C16 PO; -NAPR-260 PO; -TRAM50TA2 PO
[2016-10-22 11:01] VITALS: Ht 167.6 cm; Wt 79.0 kg
[2016-10-22] MEDS ORDERED: ASPI-664 PO (14:48)
--- NOTE | 2016-10-22 14:54 | ERA ---
ER Documentation Chief Complaint Date/Time DATE: 10/22/16 TIME: 14:53 Chief Complaint CHEST PAIN , PALPITATIONS , SOB X 3 DAYS HPI The patient is a 46-year-old female, presenting to the ER because of chest discomfort and palpitation intermittently for the last 3 days. She has minimal symptoms at this time. She has similar symptoms previously, denies fever, chills, neck pain, chest pain with exertion of vomiting or diaphoresis. She denies abdominal pain, vomiting, dysuria, diarrhea. She does not smoke nor drink Past medical history: Dyslipidemia, gastritis Past surgical history: Bilateral ear surgery, ROS All systems reviewed and are negative except as per history of present illness. Medications Home Meds Active Scripts Atorvastatin Calcium (Atorvastatin Calcium) 20 Mg Tablet, 20 MG PO HS for 30 Days, TAB Prov:JESUS MORALES MD, [facility] 10/18/16 Gabapentin* (Gabapentin*) 300 Mg Capsule, 300 MG PO QHS for 30 Days, CAP Prov:JESUS MORALES MD, [facility] 10/18/16 Reported Medications Aspirin* (Aspirin* EC) 81 Mg Tablet.dr, 81 MG PO DAILY, TAB 10/22/16 Omeprazole* (Omeprazole*) 20 Mg Capsule., DAILY 12/09/12 [Depression Meds] No Conflict Check 08/28/12 Discontinued Reported Medications Fluoxetine Hcl* (Fluoxetine Hcl*) 20 Mg Capsule, DAILY 12/09/12 Discontinued Scripts Naproxen* (Naprosyn*) 500 Mg Tablet, 500 MG PO BID Y for PAIN AND/OR INFLAMMATION, #30 TAB Prov:HENRIETTA HINOJOSA MD 02/22/16 Tramadol HCl (Tramadol HCl) 50 Mg Tablet, 50 MG PO Q6 Y for PAIN, #15 TAB Prov:KRISITE MORENO NP 10/14/15 Allergies Allergies: Coded Allergies: No Known Allergy (Unverified , 10/13/15) PMhx/Soc History of Surgery: Yes (, tubal ligation) Anesthesia Reaction: No Hx Neurological Disorder: No Hx Respiratory Disorders: No Hx Cardiac Disorders: No Hx Psychiatric Problems: Yes (Depression & Anxiety) Hx Miscellaneous Medical Probl: Yes (gastritis) Hx Alcohol Use: No Hx Substance Use: No Hx Tobacco Use: No Physical Exam Vitals Vital Signs Date Time Temp Pulse Resp B/P Pulse Ox O2 Delivery O2 Flow Rate FiO2 10/22/16 17:45 66 18 119/74 100 Room Air 10/22/16 15:23 98.1 78 16 122/78 98 Room Air 10/22/16 11:01 98.1 82 18 128/76 98 Physical Exam Const: No acute distress. Head: Atraumatic. Eyes: Normal Conjunctiva. ENT: Normal External Ears, Nose and Mouth. Neck: Full range of motion. No meningismus. Resp: Clear to auscultation bilaterally. Cardio: Regular rate and rhythm, no murmurs. Abd: Soft, non distended, normal bowel sounds, non tender. Skin: No petechiae or rashes. Back: No midline or flank tenderness. Ext: No cyanosis, or edema. Neur: Awake and alert. No focal deficit Psych: Normal Mood and Affect. Result Diagram: 10/22/16 1530 10/22/16 1530 Results 24 hrs Laboratory Tests Test 10/22/16 15:30 10/22/16 18:28 White Blood Count 9.910^3/ul Red Blood Count 4.4410^6/ul Hemoglobin 12.4g/dl Hematocrit 36.9% Mean Corpuscular Volume 83.1fl Mean Corpuscular Hemoglobin 27.9pg Mean Corpuscular Hemoglobin Concent 33.6g/dl Red Cell Distribution Width 19.8% Platelet Count 66150^3/UL Mean Platelet Volume 11.2fl Neutrophils % 53.5% Lymphocytes % 37.8% Monocytes % 6.1% Eosinophils % 1.6% Basophils % 0.5% Nucleated Red Blood Cells % 0.0/100WBC Neutrophils # 5.310^3/ul Lymphocytes # 3.710^3/ul Monocytes # 0.610^3/ul Eosinophils # 0.210^3/ul Basophils # 0.110^3/ul Nucleated Red Blood Cells # 0.010^3/ul Prothrombin Time 15.0Sec Prothrombin Time Ratio 1.2 INR International Normalized Ratio 1.17 Activated Partial Thromboplast Time 30.7Sec Sodium Level 141mmol/L Potassium Level 3.6mmol/L Chloride Level 103mmol/L Carbon Dioxide Level 23mmol/L Anion Gap 19 Blood Urea Nitrogen 12mg/dl Creatinine 0.50mg/dl Glucose Level 86mg/dl Calcium Level 9.5mg/dl Troponin I < 0.012ng/ml < 0.012ng/ml Current Medications Medications (Trade) Dose Ordered Sig/López Route PRN Reason Start Time Stop Time Status Last Admin Dose Admin Acetaminophen (Tylenol Tab) 650 mg ONCE ONCE PO 10/22/16 18:00 10/22/16 18:01 DC 10/22/16 17:43 Procedures/MDM [place] [id number] Radiology Main Line: [phone] DIAGNOSTIC IMAGING REPORT Patient: NANO BARROW : 1970 Age: 46 Sex: F MR #: [id number] DOS: 10/22/16 1510 Ordering MD: ATTILA COLVIN MD Location: E/R Room/Bed: PROCEDURE: XR Chest 1 View. CLINICAL INDICATION: Chest pain TECHNIQUE: AP view of the chest was obtained. COMPARISON: October 13, 2015 FINDINGS: The cardiomediastinal silhouette is within normal limits. No consolidations are identified. No pneumothorax is seen. Osseous structures are intact. IMPRESSION: No visualized active disease. RPTAT: AA .Norris Xavier MD, MD Date Time Electronically viewed and signed by .Norris Xavier MD, MD on 10/22/2016 15:43 .P/ CC: ATTILA COLVIN MD EKG: At 11:08 AM read by emergency physician Rate/Rhythm: Normal Sinus Rhythm 82 beats/min QRS, ST, T-waves: No ST elevation, no T inversion Impression: Normal EKG EKG: At 3:22 PM read by emergency physician Rate/Rhythm: Normal Sinus Rhythm 63 beats/min QRS, ST, T-waves: No ST elevation, no T inversion Impression: Normal EKG MEDICAL MAKING DECISION: The patient is a 46-year-old female, presenting with acute intermittent chest pressure of unclear etiology. She remains well in the emergency department The differential diagnoses considered include but are not limited to acute coronary syndrome, acute myocardial infarction, pericarditis, pulmonary embolism , aortic dissection, pneumonia, pleural effusion, pneumothorax, GERD, chest wall pain. Departure Diagnosis: Primary Impression: Chest pain Condition: Good Comments The patient presents with chest pain and I considered pulmonary embolism, aortic dissection, pneumothorax among other diagnoses. Evaluation for acute coronary syndrome was performed. The HEART score (www.mdcalc.com) was utilized for risk stratification and found to be <= 3. Repeat EKG and troponin @ 3 hours were unchanged. Based on this evaluation the patients risk of major adverse cardiac events is <1%. Shared decision making occurred with patient and the decision has been made to discharge the patient for outpatient evaluation and functional study within 72 hours. The patient's blood pressure was elevated (>120/80) but appears stable without evidence of hypertension emergency or urgency. The patient was counseled about the risks of hypertension and urged to pursue outpatient monitoring and therapy within a week with their primary care physician. ATTILA COLVIN MD October 22, 2016 14:53
[2016-10-22 15:39] LABS: ADD SCAN DIFF NO
[2016-10-22 15:43] LABS: BASOPHIL # 0.1 10^3/ul (0.0-0.1); BASOPHILS % 0.5 % (0.0-2.0); EOSINOPHILS # 0.2 10^3/ul (0.0-0.5); EOSINOPHILS % 1.6 % (0.0-7.0); HEMATOCRIT 36.9 % (37.0-47.0); HEMOGLOBIN 12.4 g/dl (12.0-16.0); LYMPHOCYTES # 3.7 10^3/ul (0.8-2.9); LYMPHOCYTES % 37.8 % (15.0-51.0); MEAN CORPUSCULAR HEMOGLOBIN 27.9 pg (29.0-33.0); MEAN CORPUSCULAR HGB CONC 33.6 g/dl (32.0-37.0); MEAN CORPUSCULAR VOLUME 83.1 fl (82.0-101.0); MEAN PLATELET VOLUME 11.2 fl (7.4-10.4); MONOCYTE # 0.6 10^3/ul (0.3-0.9); MONOCYTES % 6.1 % (0.0-11.0); NEUTROPHIL # 5.3 10^3/ul (1.6-7.5); NEUTROPHILS % 53.5 % (39.0-77.0); PLATELET COUNT 309 10^3/UL (140-415); RED BLOOD COUNT 4.44 10^6/ul (4.20-5.40); RED CELL DISTRIBUTION WIDTH 19.8 % (11.5-14.5); WHITE BLOOD COUNT 9.9 10^3/ul (4.8-10.8)
--- NOTE | 2016-10-22 15:43 | RADRPT ---
PROCEDURE: XR Chest 1 View. CLINICAL INDICATION: Chest pain TECHNIQUE: AP view of the chest was obtained. COMPARISON: October 13, 2015 FINDINGS: The cardiomediastinal silhouette is within normal limits. No consolidations are identified. No pneu mothorax is seen. Osseous structures are intact. IMPRESSION: No visualized active disease. RPTAT: AA .Norris Xavier MD, Date Time Electronically viewed and signed by .Norris Xavier MD, on 10/22/2016 15:43 .P/
[2016-10-22 15:59] LABS: CHLORIDE 103 mmol/L (97-110); POTASSIUM 3.6 mmol/L (3.5-5.1); SODIUM 141 mmol/L (135-144)
[2016-10-22 16:02] LABS: ANION GAP 19 (8-16); BLOOD UREA NITROGEN 12 mg/dl (7-20); CALCIUM 9.5 mg/dl (8.4-10.2); CARBON DIOXIDE 23 mmol/L (21-31); GLUCOSE 86 mg/dl (70-220)
[2016-10-22 16:07] LABS: INR 1.17; PT RATIO 1.2
[2016-10-22 16:08] LABS: PARTIAL THROMBOPLASTIN TIME 30.7 Sec (25.0-35.0)
[2016-10-22 16:19] LABS: TROPONIN-I < 0.012 ng/ml (0.00-0.12)
[2016-10-22] MEDS ORDERED: ACETAMINOPHEN 325 MG TAB PO ONE (18:00)
[2016-10-22] MEDS ORDERED: HYDR-906 PO (20:07)
[2016-10-22 20:24] VITALS: BP 117/75; PULSE 76; RESP 16; TEMP 98.1
[2016-10-22] MEDS ORDERED: HYDROCODONE/APAP (5/325) TAB PO ONE (20:30)
== END 2016-10-22 20:27 | disposition home or self-care (01) ==
LOC: E/R 10:57
DX: R07.9 Chest pain, unspecified (principal); Z79.82 Long term (current) use of aspirin
CPT/HCPCS: 36415; 71010; 80048; 84484; 85025; 85610; 85730; 93005; Z7502; Z7610

== ENCOUNTER 2016-11-03 11:29 | Emergency (ER) | payer OTHER ==
[~2016-11-03] VITALS: Ht 160 cm; Wt 75.0 kg
[~2016-11-03 11:29] MED LIST changes: +ASPI-664 PO; -FLUO20CA22; +HYDR-906 PO
[2016-11-03 11:32] VITALS: Ht 160 cm; Wt 75.0 kg
[2016-11-03 12:00] VITALS: BP 116/82; PULSE 65; RESP 11
[2016-11-03] MEDS ORDERED: HYDROmorphONE 1 MG/ML SYG IM STA (12:03)
[2016-11-03] MEDS ORDERED: LORA-441 PO (12:06)
--- NOTE | 2016-11-03 13:09 | ERD ---
ER Documentation Chief Complaint Date/Time DATE: 11/03/16 TIME: 13:05 Chief Complaint right facial numbess and headache an hour ago HPI 46-year-old woman complains of continued occipital headache, ocular occipital paresthesias and scalp attention 1 day. She has a long history of recurrent headaches and states these symptoms occur almost on a weekly basis. She has been using her medications including fluoxetine and ibuprofen as prescribed without relief. She was seen and evaluated for the same symptoms earlier this month (about 3 weeks ago) and a full workup including CT brain, MRI brain, carotid ultrasounds were all normal. Patient denies fevers or chills, no neck stiffness, no weight loss, no weakness in arms or legs, no slurred speech. ROS All systems reviewed and are negative except as per history of present illness. Medications Home Meds Active Scripts Lorazepam* (Ativan*) 0.5 Mg Tablet, 0.5 MG PO Q8H Y for ANXIETY, #12 TAB Prov:ELHAM HEWITT MD 11/03/16 Hydrocodone/Acetaminophen ([place] 5-325 Tablet) 1 Each Tablet, 1 TAB PO Q6H Y for PAIN, #7 TAB Prov:ATTILA COLVIN MD 10/22/16 Atorvastatin Calcium (Atorvastatin Calcium) 20 Mg Tablet, 20 MG PO HS for 30 Days, TAB Prov:JESUS MORALES MD, [facility] 10/18/16 Gabapentin* (Gabapentin*) 300 Mg Capsule, 300 MG PO QHS for 30 Days, CAP Prov:JESUS MORALES MD, [facility] 10/18/16 Reported Medications Aspirin* (Aspirin* EC) 81 Mg Tablet., 81 MG PO DAILY, TAB 10/22/16 Omeprazole* (Omeprazole*) 20 Mg Capsule., DAILY 12/09/12 [Depression Meds] No Conflict Check 08/28/12 Allergies Allergies: Coded Allergies: No Known Allergy (Unverified , 10/13/15) PMhx/Soc Anxiety, gastritis, depression, dyslipidemia, recurrent headaches History of Surgery: Yes (, tubal ligation, B ear surgery.) Anesthesia Reaction: No Hx Neurological Disorder: No Hx Respiratory Disorders: No Hx Cardiac Disorders: No Hx Psychiatric Problems: Yes Hx Miscellaneous Medical Probl: No Hx Alcohol Use: No Hx Substance Use: No Hx Tobacco Use: No Smoking Status: Never smoker FmHx Family History: No diabetes Physical Exam Vitals Vital Signs Date Time Temp Pulse Resp B/P Pulse Ox O2 Delivery O2 Flow Rate FiO2 11/03/16 12:00 65 11 116/82 98 Room Air 11/03/16 11:32 99.9 75 18 119/56 98 Physical Exam GENERAL: Well-developed, anxious HEENT: Moist mucous membranes, pink conjunctiva, no cervical spine tenderness or step-off deformities, no goiter, no jaundice or icterus, extraocular movements intact without pain. No submandibular induration, and no pharyngeal erythema NEURO: Alert and oriented 3, cranial nerves II through XII intact bilaterally, pupils equal round reactive to light, no focal deficits or facial asymmetry, sensation intact distally Strength 5/5 in upper and lower extremities bilaterally CARDIAC: Regular rate and rhythm, no murmurs rubs or gallops LUNGS: Clear bilaterally no wheezing crackles or stridor ABDOMEN: Soft nontender, no guarding, no rigidity, no rebound, no psoas sign no obturator sign. Normoactive bowel sounds SKIN: Warm and dry to touch, no abrasions, contusions, or hematomas, no lacerations, no ecchymosis, no target lesions, and without ulcers EXTREMITIES: No clubbing cyanosis or edema, calves are bilaterally symmetrical, no Homans sign, no popliteal cord sign. Distal pulses equal and bilateral PSYCH: Anxious Results 24 hrs Current Medications Medications (Trade) Dose Ordered Sig/López Route PRN Reason Start Time Stop Time Status Last Admin Dose Admin Hydromorphone HCl (Dilaudid) 1 mg ONCE STAT IM 11/03/16 12:03 11/03/16 12:04 DC 11/03/16 12:14 Procedures/MDM Reassurance was provided to the patient and her who is at the bedside. I went over all the recent imaging studies which were all normal, reviewed her outpatient plan of care, and recommended she follow-up with her PMD and psychiatrist. I administered hydromorphone 1 mg intramuscular injection with good pain control , and also recommended she continue using her anxiolytics and antidepressants which are definitely contributing to her symptoms. Differential diagnoses considered, included but not limited to acute coronary syndrome, pulmonary embolism, aortic dissection, abdominal aortic aneurysm, sepsis, stroke, meningitis, encephalitis, pneumonia, appendicitis, cholecystitis , bowel obstruction, pyelonephritis, nephrolithiasis, cystitis, as well as metabolic, hematologic, and electrolyte abnormalities. As well as abscess, cellulitis, fractures, and dislocations. Patient feels much better at this time, and vital signs are normal, symptoms have improved. I did give strict instructions to return to the ED if symptoms continue or worsen, patient will otherwise follow-up with primary care physician. Patient understood instructions and agreed to plan. Disclaimer: Inadvertent spelling or grammatical errors are likely due to EHR/ dictation software use and do not reflect on the overall quality of patient care. Departure Diagnosis: Primary Impression: Chronic pain Chronic pain type: chronic pain syndrome Qualified Code: G89.4 - Chronic pain syndrome Additional Impressions: Anxiety Headache Headache type: tension-type Headache chronicity pattern: acute headache Intractability: not intractable Qualified Code: G44.209 - Acute non intractable tension-type headache Condition: Good Patient Instructions: Anxiety Reaction, Chronic Pain ELHAM HEWITT MD November 03, 2016 13:09
== END 2016-11-03 12:28 | disposition home or self-care (01) ==
LOC: E/R 11:29
DX: G89.4 Chronic pain syndrome (principal); R40.2252 Coma scale, best verbal response, oriented, at arrival to emergency department; F41.9 Anxiety disorder, unspecified; G44.209 Tension-type headache, unspecified, not intractable; R40.2142 Coma scale, eyes open, spontaneous, at arrival to emergency department; R40.2362 Coma scale, best motor response, obeys commands, at arrival to emergency department; Z79.82 Long term (current) use of aspirin
CPT/HCPCS: J1170; Z7610; 96372

== ENCOUNTER 2016-11-14 18:13 | Emergency (ER) | payer OTHER ==
[~2016-11-14] VITALS: Ht 167.6 cm; Wt 70.0 kg
[~2016-11-14 18:13] MED LIST changes: +LORA-441 PO
[2016-11-14 18:18] VITALS: Ht 167.6 cm; Wt 70.0 kg
[2016-11-14] MEDS ORDERED: morphine 2 MG INJ IV STA (19:48)
[2016-11-14] MEDS ORDERED: ONDANSETRON 4 MG INJ IV STA (19:48)
[2016-11-14] MEDS ORDERED: SOD CHLORIDE 0.9% 500 ML IV STA (19:48)
[2016-11-14 19:57] LABS: ADD SCAN DIFF NO
[2016-11-14 20:02] LABS: BASOPHIL # 0.1 10^3/ul (0.0-0.1); BASOPHILS % 0.5 % (0.0-2.0); EOSINOPHILS # 0.3 10^3/ul (0.0-0.5); EOSINOPHILS % 2.7 % (0.0-7.0); HEMATOCRIT 40.4 % (37.0-47.0); HEMOGLOBIN 13.6 g/dl (12.0-16.0); LYMPHOCYTES # 3.8 10^3/ul (0.8-2.9); LYMPHOCYTES % 33.9 % (15.0-51.0); MEAN CORPUSCULAR HEMOGLOBIN 29.1 pg (29.0-33.0); MEAN CORPUSCULAR HGB CONC 33.7 g/dl (32.0-37.0); MEAN CORPUSCULAR VOLUME 86.3 fl (82.0-101.0); MEAN PLATELET VOLUME 11.2 fl (7.4-10.4); MONOCYTE # 0.8 10^3/ul (0.3-0.9); MONOCYTES % 6.8 % (0.0-11.0); NEUTROPHIL # 6.3 10^3/ul (1.6-7.5); NEUTROPHILS % 55.8 % (39.0-77.0); PLATELET COUNT 255 10^3/UL (140-415); RED BLOOD COUNT 4.68 10^6/ul (4.20-5.40); RED CELL DISTRIBUTION WIDTH 16.6 % (11.5-14.5); WHITE BLOOD COUNT 11.2 10^3/ul (4.8-10.8)
--- NOTE | 2016-11-14 20:14 | RADRPT ---
PROCEDURE: CT Brain without contrast. CLINICAL INDICATION: Headache, weakness. TECHNIQUE: A CT of the brain was performed utilizing axial sections from the skull base through th e vertex without contrast. Multiplanar re-formations were generated. Images were reviewed on a high- resolution PACS workstation. CTDIvol: 43.77 mGy. DLP: 720.23 mGy-cm. One or more of the following dose reduction techniques were used: - Automated exposure control. - Adjustment of the mA and/or kV according to patient size. - Use of iterative reconstruction technique. COMPARISON: None available FINDINGS: There is no cerebral volume loss. No hydrocephalus is seen. There is no mass effect. No acute intrac ranial hemorrhage is identified. There is no extra-axial collection. Fierro-white matter differentiati on is preserved. There is no significant mucosal disease in the paranasal sinuses. The patient status post left-side d mastoidectomy. The extracranial soft tissues are unremarkable. IMPRESSION: 1. No acute intracranial pathology. RPTAT: HTAR .Fred Oakes MD, Date Time Electronically viewed and signed by .Fred Oakes MD, on 11/14/2016 20:14 .R/
[2016-11-14 20:18] LABS: ALANINE AMINOTRANSFERASE 34 IU/L (13-69); ALBUMIN 4.8 g/dl (3.3-4.9); ALKALINE PHOSPHATASE 94 IU/L (42-121); ANION GAP 10 (8-16); ASPARTATE AMINO TRANSFERASE 18 IU/L (15-46); BILIRUBIN,INDIRECT 0.3 mg/dl (0-1.1); BILIRUBIN,TOTAL 0.3 mg/dl (0.2-1.3); BLOOD UREA NITROGEN 6 mg/dl (7-20); CALCIUM 9.8 mg/dl (8.4-10.2); CARBON DIOXIDE 27 mmol/L (21-31); CHLORIDE 104 mmol/L (97-110); CREATININE 0.56 mg/dl (0.44-1.00); GLUCOSE 85 mg/dl (70-220); POTASSIUM 3.8 mmol/L (3.5-5.1); SODIUM 137 mmol/L (135-144)
[2016-11-14 20:30] LABS: TROPONIN-I < 0.012 ng/ml (0.00-0.12)
[2016-11-14] MEDS ORDERED: MECL12.574 PO (21:25)
[2016-11-14] MEDS ORDERED: MECLIZINE 12.5 MG TAB PO ONE (21:30)
--- NOTE | 2016-11-14 23:30 | ERD ---
ER Documentation Chief Complaint Date/Time DATE: 11/14/16 TIME: 23:27 Chief Complaint HEADCAHE , DIZZINESS , LT ARM PAIN WITH NAUSEA HPI This patient is a 46-year-old female presenting to the emergency department for left arm pain, headache, and dizziness with nausea which began this morning. Symptoms are constant. Symptoms are worsening. The patient denies syncope, vomiting, diarrhea, or other symptoms currently. ROS All systems reviewed and are negative except as per history of present illness. Medications Home Meds Active Scripts Meclizine Hcl* (Antivert*) 12.5 Mg Tab, 12.5 MG PO Q6H Y for DIZZINESS, #20 TAB Prov:YI KAPLAN PA-C 11/14/16 Lorazepam* (Ativan*) 0.5 Mg Tablet, 0.5 MG PO Q8H Y for ANXIETY, #12 TAB Prov:ELHAM HEWITT MD 11/03/16 Hydrocodone/Acetaminophen ([place] 5-325 Tablet) 1 Each Tablet, 1 TAB PO Q6H Y for PAIN, #7 TAB Prov:ATTILA COLVIN MD 10/22/16 Atorvastatin Calcium (Atorvastatin Calcium) 20 Mg Tablet, 20 MG PO HS for 30 Days, TAB Prov:JESUS MORALES MD, [facility] 10/18/16 Gabapentin* (Gabapentin*) 300 Mg Capsule, 300 MG PO QHS for 30 Days, CAP Prov:JESUS MORALES MD, [facility] 10/18/16 Reported Medications Aspirin* (Aspirin* EC) 81 Mg Tablet., 81 MG PO DAILY, TAB 10/22/16 Omeprazole* (Omeprazole*) 20 Mg Capsule., DAILY 12/09/12 [Depression Meds] No Conflict Check 08/28/12 Allergies Allergies: Coded Allergies: No Known Allergy (Unverified , 10/13/15) PMhx/Soc History of Surgery: Yes (, tubal ligation, B ear surgery.) Anesthesia Reaction: No Hx Neurological Disorder: No Hx Respiratory Disorders: No Hx Cardiac Disorders: No Hx Psychiatric Problems: Yes Hx Miscellaneous Medical Probl: No Hx Alcohol Use: No Hx Substance Use: No Hx Tobacco Use: No FmHx Noncontributory for chief complaint Physical Exam Vitals Vital Signs Date Time Temp Pulse Resp B/P Pulse Ox O2 Delivery O2 Flow Rate FiO2 11/14/16 18:18 99.6 78 18 143/77 99 Physical Exam Const: Well, nontoxic-appearing female in no acute distress. Head: Atraumatic Eyes: Normal Conjunctiva ENT: Normal External Ears, Nose and Mouth. Neck: Full range of motion..~ No meningismus. Resp: Clear to auscultation bilaterally Cardio: Regular rate and rhythm, no murmurs Abd: Soft, non tender, non distended. Normal bowel sounds Skin: No petechiae or rashes Back: No midline or flank tenderness Ext: No cyanosis, or edema Neur: Awake and alert. The patient has some very mild pronator drift noted on the left side. Hearing Aide Technician strength is equal and bilateral upper extremities. Cranial nerves are intact. Psych: Normal Mood and Affect Result Diagram: 11/14/16 1950 11/14/16 [facility] Results 24 hrs Laboratory Tests Test 11/14/16 19:50 White Blood Count 11.210^3/ul Red Blood Count 4.6810^6/ul Hemoglobin 13.6g/dl Hematocrit 40.4% Mean Corpuscular Volume 86.3fl Mean Corpuscular Hemoglobin 29.1pg Mean Corpuscular Hemoglobin Concent 33.7g/dl Red Cell Distribution Width 16.6% Platelet Count 68895^3/UL Mean Platelet Volume 11.2fl Neutrophils % 55.8% Lymphocytes % 33.9% Monocytes % 6.8% Eosinophils % 2.7% Basophils % 0.5% Nucleated Red Blood Cells % 0.0/100WBC Neutrophils # 6.310^3/ul Lymphocytes # 3.810^3/ul Monocytes # 0.810^3/ul Eosinophils # 0.310^3/ul Basophils # 0.110^3/ul Nucleated Red Blood Cells # 0.010^3/ul Sodium Level 137mmol/L Potassium Level 3.8mmol/L Chloride Level 104mmol/L Carbon Dioxide Level 27mmol/L Anion Gap 10 Blood Urea Nitrogen 6mg/dl Creatinine 0.56mg/dl Glucose Level 85mg/dl Calcium Level 9.8mg/dl Total Bilirubin 0.3mg/dl Direct Bilirubin 0.00mg/dl Indirect Bilirubin 0.3mg/dl Aspartate Amino Transf (AST/SGOT) 18IU/L Alanine Aminotransferase (ALT/SGPT) 34IU/L Alkaline Phosphatase 94IU/L Troponin I < 0.012ng/ml Total Protein 8.0g/dl Albumin 4.8g/dl Globulin 3.20g/dl Albumin/Globulin Ratio 1.50 Current Medications Medications (Trade) Dose Ordered Sig/López Route PRN Reason Start Time Stop Time Status Last Admin Dose Admin Sodium Chloride (NS) 500 ml @ 500 mls/hr Q1H STAT IV 11/14/16 19:48 11/14/16 20:47 DC 11/14/16 20:08 Morphine Sulfate (morphine) 2 mg ONCE STAT IV 11/14/16 19:48 11/14/16 19:51 DC 11/14/16 20:08 Ondansetron HCl (Zofran Inj) 4 mg ONCE STAT IV 11/14/16 19:48 11/14/16 19:51 DC 11/14/16 20:08 Meclizine HCl (Antivert) 12.5 mg ONCE ONCE PO 11/14/16 21:30 11/14/16 21:32 DC 11/14/16 21:21 [place] [id number] Radiology Main Line: [phone] DIAGNOSTIC IMAGING REPORT Patient: NANO BARROW : 1970 Age: 46 Sex: F [id number] DOS: 11/14/16 0000 Ordering MD: YI KAPLAN PA-C Location: [facility] Room/Bed: PROCEDURE: CT Brain without contrast. CLINICAL INDICATION: Headache, weakness. TECHNIQUE: A CT of the brain was performed utilizing axial sections from the skull base through the vertex without contrast. Multiplanar re-formations were generated. Images were reviewed on a high-resolution PACS workstation. CTDIvol: 43.77 mGy. DLP: 720.23 mGy-cm. One or more of the following dose reduction techniques were used: - Automated exposure control. - Adjustment of the mA and/or kV according to patient size. - Use of iterative reconstruction technique. COMPARISON: None available FINDINGS: There is no cerebral volume loss. No hydrocephalus is seen. There is no mass effect. No acute intracranial hemorrhage is identified. There is no extra-axial collection. Fierro-white matter differentiation is preserved. There is no significant mucosal disease in the paranasal sinuses. The patient status post left-sided mastoidectomy. The extracranial soft tissues are unremarkable. IMPRESSION: 1. No acute intracranial pathology. RPTAT: HTAR .Fred Oakes MD, Date Time Electronically viewed and signed by .Fred Oakes MD, on 11/14/2016 20:14 .R/ CC: YI KAPLAN PA-C Procedures/[facility] EMERGENCY DEPARTMENT COURSE / MEDICAL DECISION MAKING: This is a 46-year-old female who comes to the emergency room secondary to complaints of headache, tingling and weakness in her left arm. The patient was given IV morphine, p.o. Antivert, IV Zofran in the department. On re-evaluation, the patient was feeling improved. Lab results reviewed and showed slight leukocytosis but not significant. CMP was negative for acute abnormalities. Troponin was negative for evidence of acute coronary syndrome. EKG: Interpreted by ED physician Rate/Rhythm: Normal sinus rhythm with a rate of 65 bpm. QRS, ST, T-waves: No changes consistent w/ acute ischemia Impression: No evidence of ischemia or arrhythmia Radiology: CT head was negative for intracranial abnormalities and interpreted by radiologist. The primary diagnosis is headache. Secondary diagnosis is dizziness of unclear etiology I have low suspicion for at this time. Discharge: I have discussed the lab results and diagnostic findings with the patient and answered any questions or concerns. The patient was discharged with a prescription for meclizine. The patient was advised to followup with their PMD in 1-2 days and to return to the Emergency Department if there are any new or worsening symptoms. The patient understood and agreed with the diagnosis, treatment and plan. The patient is stable for discharge at this time. Departure Diagnosis: Primary Impression: Headache Headache type: unspecified Headache chronicity pattern: acute headache Intractability: not intractable Qualified Code: R51 - Acute nonintractable headache, unspecified headache type Additional Impression: Dizziness Condition: Fair Patient Instructions: Self-Care for Headaches, Dizziness (Vertigo) and Balance Problems: Ensuring Your Safety Additional Instructions: No mas mejor en 2-3 chapman, regresar. Mas peor en 24 horas, regresear rapidamente. Ir a doctor primario in 5-7 chapman. Usar instrucciones cuando colleen medicamento. YI KAPLAN PA-C November 14, 2016 23:30
== END 2016-11-14 21:38 | disposition home or self-care (01) ==
LOC: FTE 18:13
DX: R51 Headache (principal); R42 Dizziness and giddiness; R11.0 Nausea; Z79.82 Long term (current) use of aspirin
CPT/HCPCS: 36415; 70450; 80053; 84484; 85025; 93005; 96374; 96375; J2270; J2405; J7040; Z7502; Z7610

== ENCOUNTER 2016-11-27 01:12 | Emergency (ER) | payer OTHER ==
[~2016-11-27] VITALS: Ht 165.1 cm; Wt 77.0 kg
[~2016-11-27 01:12] MED LIST changes: +MECL12.574 PO
[2016-11-27 01:14] VITALS: Ht 165.1 cm; Wt 77.0 kg
--- NOTE | 2016-11-27 03:05 | RADRPT ---
PROCEDURE: ULTRASOUND PELVIS CLINICAL INDICATION: 46-year-old female with vaginal bleeding. TECHNIQUE: Multiple sonographic images of the pelvis were obtained utilizing a transabdominal and endovaginal technique. The images were reviewed on a PACS workstation. COMPARISON: None. FINDINGS: The uterus is visualized and measures 11.3 x 5.8 x 7.0 cm. Nabothian cysts are seen within the endoc ervical region. The endometrial echo complex is within normal limits and measures 12.5 mm. There is no evidence for free fluid. The right ovary has a normal echotexture and measures 4.6 x 3.2 x 3.6 c m. There is a dominant right ovarian cyst measuring 3.8 x 2.5 cm. The left ovary has a normal echo texture and measures 3.2 x 1.3 x 1.9 cm. There is flow identified within the ovaries bilaterally. No adnexal masses are noted. IMPRESSION: Right ovarian cyst. .Jordan Oconnor MD, MD Date Time Electronically viewed and signed by .Jordan Oconnor MD, on 11/27/2016 03:04 .M/
[2016-11-27 03:19] LABS: ADD SCAN DIFF NO
[2016-11-27 03:21] LABS: BASOPHILS % 0.2 % (0.0-2.0); EOSINOPHILS % 0.1 % (0.0-7.0); HEMATOCRIT 36.9 % (37.0-47.0); HEMOGLOBIN 12.3 g/dl (12.0-16.0); LYMPHOCYTES # 2.4 10^3/ul (0.8-2.9); LYMPHOCYTES % 20.3 % (15.0-51.0); MEAN CORPUSCULAR HEMOGLOBIN 28.9 pg (29.0-33.0); MEAN CORPUSCULAR HGB CONC 33.3 g/dl (32.0-37.0); MEAN CORPUSCULAR VOLUME 86.6 fl (82.0-101.0); MEAN PLATELET VOLUME 11.7 fl (7.4-10.4); MONOCYTE # 0.4 10^3/ul (0.3-0.9); MONOCYTES % 3.6 % (0.0-11.0); NEUTROPHILS % 75.4 % (39.0-77.0); PLATELET COUNT 269 10^3/UL (140-415); RED BLOOD COUNT 4.26 10^6/ul (4.20-5.40); RED CELL DISTRIBUTION WIDTH 14.9 % (11.5-14.5); WHITE BLOOD COUNT 11.9 10^3/ul (4.8-10.8)
[2016-11-27 03:48] LABS: CALCIUM 9.8 mg/dl (8.4-10.2); CREATININE 0.57 mg/dl (0.44-1.00); POTASSIUM 4.2 mmol/L (3.5-5.1)
--- NOTE | 2016-11-27 03:57 | ERD ---
ER Documentation Chief Complaint Date/Time DATE: 11/27/16 TIME: 03:57 Chief Complaint VB for 14 days and JASMINE for 1 month HPI 46-year-old female presents here in emergency department for complete of vaginal bleeding for the last 14 days. Patient described the pain being as moderate amount, cramping pain 4/10 scale, prolonged are normal. Patient is complaining of a headache throbbing pain 4/10 scale, is accompanied with photophobia, has history of migraine headaches, recently was seen here in emergency department for the same problem, had a CT scan done 2 weeks ago. Patient denies any head injury. Patient denies any numbness or tingling. Patient denies abdominal pain and flank pain. Patient has been . ROS All systems reviewed and are negative except as per history of present illness. Medications Home Meds Active Scripts Ferrous Sulfate* (Ferrous Sulfate*) 325 Mg Tabec, 325 MG PO BID, #60 TAB Prov:ARPITA COLLINS NP 11/27/16 Ibuprofen* (Motrin*) 600 Mg Tab, 600 MG PO Q6H Y for PAIN AND OR ELEVATED TEMP, #30 TAB Prov:ARPITA COLLINS DOCUMENTATION LEAD 11/27/16 Rljttbvvylkoc-Dmchhxhktw-Ouozwaws-Codeine* (Fioricet w/ Codeine*) [id number] 30MG Capsule, 1 CAP PO Q6H Y for PAIN LEVEL 1-5, #20 CAP Prov:ARPITA COLLINS NP 11/27/16 Meclizine Hcl* (Antivert*) 12.5 Mg Tab, 12.5 MG PO Q6H Y for DIZZINESS, #20 TAB Prov:YI KAPLAN PA-C 11/14/16 Lorazepam* (Ativan*) 0.5 Mg Tablet, 0.5 MG PO Q8H Y for ANXIETY, #12 TAB Prov:ELHAM HEWITT MD 11/03/16 Hydrocodone/Acetaminophen ([place] 5-325 Tablet) 1 Each Tablet, 1 TAB PO Q6H Y for PAIN, #7 TAB Prov:ATTILA COLVIN MD 10/22/16 Atorvastatin Calcium (Atorvastatin Calcium) 20 Mg Tablet, 20 MG PO HS for 30 Days, TAB Prov:JESUS MOARLES MD, [facility] 10/18/16 Gabapentin* (Gabapentin*) 300 Mg Capsule, 300 MG PO QHS for 30 Days, CAP Prov:JESUS MORALES MD, [facility] 10/18/16 Reported Medications Aspirin* (Aspirin* EC) 81 Mg Tablet., 81 MG PO DAILY, TAB 10/22/16 Omeprazole* (Omeprazole*) 20 Mg Capsule., DAILY 12/09/12 [Depression Meds] No Conflict Check 08/28/12 Allergies Allergies: Coded Allergies: No Known Allergy (Unverified , 10/13/15) PMhx/Soc History of Surgery: Yes (, tubal ligation, B ear surgery.) Anesthesia Reaction: No Hx Neurological Disorder: No Hx Respiratory Disorders: No Hx Cardiac Disorders: No Hx Psychiatric Problems: Yes Hx Miscellaneous Medical Probl: Yes (gastritis) Hx Alcohol Use: No Hx Substance Use: No Hx Tobacco Use: No Smoking Status: Never smoker FmHx Family History: No coronary disease, No diabetes, No other Physical Exam Vitals Vital Signs Date Time Temp Pulse Resp B/P Pulse Ox O2 Delivery O2 Flow Rate FiO2 11/27/16 01:14 98.3 97 16 125/77 97 Physical Exam GENERAL: The patient is well developed and appropriate for usual state of health, in no apparent distress. CHEST: Clear to auscultation bilaterally. There are no rales, wheezes or rhonchi. HEART: Regular rate and rhythm. No murmurs, clicks, rubs or gallops. No S3 or S4. ABDOMEN: Soft, nontender and nondistended. Good bowel sounds. No rebound or guarding. No gross peritonitis. No gross organomegaly or masses. No Braswell sign or McBurney point tenderness. BACK: No midline or flank tenderness. EXTREMITIES: Equal pulses bilaterally. There is no peripheral clubbing, cyanosis or edema. No focal swelling or erythema. Full range of motion. Grossly neurovascularly intact. NEURO: Alert and oriented. Cranial nerves 2-12 intact. Motor strength in all 4 extremities with 5/5 strength. Sensation grossly intact. Normal speech and gait. SKIN: There is no apparent rash or petechia. The skin is warm and dry. HEMATOLOGIC AND LYMPHATIC: There is no evidence of excessive bruising or lymphedema. No gross cervical, axillary, or inguinal lymphadenopathy. Result Diagram: 11/27/16 0305 11/27/16 0305 Results 24 hrs Laboratory Tests Test 11/27/16 03:05 White Blood Count 11.910^3/ul Red Blood Count 4.2610^6/ul Hemoglobin 12.3g/dl Hematocrit 36.9% Mean Corpuscular Volume 86.6fl Mean Corpuscular Hemoglobin 28.9pg Mean Corpuscular Hemoglobin Concent 33.3g/dl Red Cell Distribution Width 14.9% Platelet Count 65292^3/UL Mean Platelet Volume 11.7fl Neutrophils % 75.4% Lymphocytes % 20.3% Monocytes % 3.6% Eosinophils % 0.1% Basophils % 0.2% Nucleated Red Blood Cells % 0.0/100WBC Neutrophils # 9.010^3/ul Lymphocytes # 2.410^3/ul Monocytes # 0.410^3/ul Eosinophils # 0.010^3/ul Basophils # 0.010^3/ul Nucleated Red Blood Cells # 0.010^3/ul Urine Color LT. YELLOW Urine Clarity CLEAR Urine pH 6.0 Urine Specific [place] 1.015 Urine Ketones NEGATIVE Urine Nitrite NEGATIVE Urine Bilirubin NEGATIVE Urine Urobilinogen 0.2 E.U./dL Urine Leukocyte Esterase NEGATIVE Urine Microscopic RBC >200/HPF Urine Microscopic WBC 0-2/HPF Urine Squamous Epithelial Cells FEW Urine Hemoglobin 3+ Urine Glucose NEGATIVE% Urine Total Protein NEGATIVE Sodium Level 141mmol/L Potassium Level 4.2mmol/L Chloride Level 107mmol/L Carbon Dioxide Level 24mmol/L Anion Gap 14 Blood Urea Nitrogen 10mg/dl Creatinine 0.57mg/dl Glucose Level 107mg/dl Calcium Level 9.8mg/dl Beta HCG, Quantitative < 2.4mIU/ml Current Medications Medications (Trade) Dose Ordered Sig/López Route PRN Reason Start Time Stop Time Status Last Admin Dose Admin Acetaminophen/ Butalbital/ Caffeine (Fioricet) 1 tab ONCE ONCE PO 11/27/16 04:00 11/27/16 04:01 DC 11/27/16 04:08 PROCEDURE: CT Brain without contrast. CLINICAL INDICATION: Headache, weakness. TECHNIQUE: A CT of the brain was performed utilizing axial sections from the skull base through the vertex without contrast. Multiplanar re-formations were generated. Images were reviewed on a high-resolution PACS workstation. CTDIvol: 43.77 mGy. DLP: 720.23 mGy-cm. One or more of the following dose reduction techniques were used: - Automated exposure control. - Adjustment of the mA and/or kV according to patient size. - Use of iterative reconstruction technique. COMPARISON: None available FINDINGS: There is no cerebral volume loss. No hydrocephalus is seen. There is no mass effect. No acute intracranial hemorrhage is identified. There is no extra-axial collection. Fierro-white matter differentiation is preserved. There is no significant mucosal disease in the paranasal sinuses. The patient status post left-sided mastoidectomy. The extracranial soft tissues are unremarkable. IMPRESSION: 1. No acute intracranial pathology. RPTAT: HTAR .Fred Oakes MD, MD Date Time Electronically viewed and signed by .Fred Oakes MD, on 11/14/2016 20:14 .R/ CC: YI KAPLAN PA-C PROCEDURE: ULTRASOUND PELVIS CLINICAL INDICATION: 46-year-old female with vaginal bleeding. TECHNIQUE: Multiple sonographic images of the pelvis were obtained utilizing a transabdominal and endovaginal technique. The images were reviewed on a PACS workstation. COMPARISON: None. FINDINGS: The uterus is visualized and measures 11.3 x 5.8 x 7.0 cm. Nabothian cysts are seen within the endocervical region. The endometrial echo complex is within normal limits and measures 12.5 mm. There is no evidence for free fluid. The right ovary has a normal echotexture and measures 4.6 x 3.2 x 3.6 cm. There is a dominant right ovarian cyst measuring 3.8 x 2.5 cm. The left ovary has a normal echotexture and measures 3.2 x 1.3 x 1.9 cm. There is flow identified within the ovaries bilaterally. No adnexal masses are noted. IMPRESSION: Right ovarian cyst. .Jordan Oconnor MD, MD Date Time Electronically viewed and signed by .Jordan Oconnor MD, on 11/27/2016 03:04 .M/ CC: YI CARDOZA Procedures/MDM Medical Decision Making: Patients vaginal bleeding is most likely consistent of dysfunctional uterine bleeding. Patient also has a right ovarian cyst which is an incidental finding.. Patient does not show any evidence of hypovolemic shock. Patients hemoglobin and hematocrit is stable. There is low suspicion for ectopic . CHANTAL results show show right ovarian cyst, does not show any fibroid. BetaHCG Quantitative is low and negative for pregnancyThere is no signs of symptoms of dehydration. There is low suspicion for sepsis. Patient appears well and is hemodynamically stable. Disposition: Home. Condition: Stable Prescription: Fioricet with codeine, ferrous sulfate, ibuprofen Instructions: Patient is advised to do bed rest, avoid heavy lifting, and avoid having sex until cleared by OB doctor Patient is advised that is symptoms are worst, severe bleeding, dizziness, severe abdominal pain, fever, worst signs and symptoms to return to the emergency department immediately. Departure Diagnosis: Primary Impression: Vaginal bleeding Additional Impression: Headache Headache type: unspecified Headache chronicity pattern: acute headache Intractability: not intractable Qualified Code: R51 - Acute nonintractable headache, unspecified headache type Condition: Stable Patient Instructions: Dysfunctional Uterine Bleeding, Self-Care for Headaches Additional Instructions: Patient is advised to do bed rest, avoid heavy lifting, and avoid having sex until cleared by OB doctor. Patient is advised to follow up with OB doctor or here at the ER in 48 hours for reevaluation of symptoms, repeat beta HCG quantitative and ultrasound. Patient is advised that is symptoms are worst, severe bleeding, dizziness, severe abdominal pain, fever, worst signs and symptoms to return to the emergency department immediately. ARPITA COLLINS NP Nov 27, 2016 03:57 ARPITA COLLINS NP Nov 27, 2016 03:57
[2016-11-27] MEDS ORDERED: ACET/BUTAL/CAFF TAB PO ONE (04:00)
[2016-11-27 04:17] LABS: ADD UMIC YES; UR BILIRUBIN (Dip) NEGATIVE (NEGATIVE); UR BLOOD (Dip) 3+ (NEGATIVE); UR CLARITY CLEAR (CLEAR); UR COLOR LT. YELLOW (YELLOW); UR GLUCOSE (Dip) NEGATIVE (NEGATIVE); UR KETONES (Dip) NEGATIVE (NEGATIVE); UR LEUKOCYTE ESTERASE (Dip) NEGATIVE (NEGATIVE); UR NITRITE (Dip) NEGATIVE (NEGATIVE); UR TOTAL PROTEIN (Dip) NEGATIVE (NEGATIVE); UR UROBILINOGEN (Dip) 0.2 E.U./dL (0.1-1.0)
[2016-11-27 04:39] LABS: UR SQUAMOUS EPITHELIAL CELL FEW; URINE RBCS >200 /HPF (0)
[2016-11-27] MEDS ORDERED: FER325 PO (04:54)
[2016-11-27] MEDS ORDERED: IBUP-1542 PO (04:54)
[2016-11-27] MEDS ORDERED: BUTA1CAP39 PO (04:54)
== END 2016-11-27 05:17 | disposition home or self-care (01) ==
LOC: FTE 01:12
DX: N93.9 Abnormal uterine and vaginal bleeding, unspecified (principal); R51 Headache; R10.2 Pelvic and perineal pain; Z79.82 Long term (current) use of aspirin
CPT/HCPCS: 76830; 76856; 80048; 81001; 84702; 85025; 87086; Z7502; Z7610

== ENCOUNTER 2016-12-22 15:28 | Emergency (ER) | payer OTHER ==
[~2016-12-22] VITALS: Wt 78.0 kg
[~2016-12-22 15:28] MED LIST changes: +BUTA1CAP39 PO; +FER325 PO; +IBUP-1542 PO
[2016-12-22] MEDS ORDERED: HYDROmorphONE 1 MG/ML SYG IV STA (15:47)
[2016-12-22] MEDS ORDERED: ONDANSETRON 4 MG INJ IV STA (15:47)
[2016-12-22] MEDS ORDERED: FAMOTIDINE 20 MG INJ IV STA (15:47)
[2016-12-22 16:03] LABS: ADD SCAN DIFF NO
[2016-12-22 16:08] LABS: BASOPHIL # 0.1 10^3/ul (0.0-0.1); BASOPHILS % 0.6 % (0.0-2.0); EOSINOPHILS # 0.4 10^3/ul (0.0-0.5); EOSINOPHILS % 3.4 % (0.0-7.0); HEMOGLOBIN 11.9 g/dl (12.0-16.0); LYMPHOCYTES # 3.3 10^3/ul (0.8-2.9); MEAN CORPUSCULAR HEMOGLOBIN 31.5 pg (29.0-33.0); MEAN CORPUSCULAR VOLUME 89.9 fl (82.0-101.0); MONOCYTE # 0.7 10^3/ul (0.3-0.9); MONOCYTES % 6.3 % (0.0-11.0); NEUTROPHIL # 7.1 10^3/ul (1.6-7.5); NEUTROPHILS % 60.9 % (39.0-77.0); PLATELET COUNT 248 10^3/UL (140-415); RED BLOOD COUNT 3.78 10^6/ul (4.20-5.40); RED CELL DISTRIBUTION WIDTH 15.4 % (11.5-14.5); WHITE BLOOD COUNT 11.7 10^3/ul (4.8-10.8)
[2016-12-22 16:16] LABS: ALBUMIN 4.6 g/dl (3.3-4.9); ALBUMIN/GLOBULIN RATIO 1.58; BILIRUBIN,INDIRECT 0.2 mg/dl (0-1.1); BILIRUBIN,TOTAL 0.2 mg/dl (0.2-1.3); CALCIUM 9.3 mg/dl (8.4-10.2); CREATININE 0.73 mg/dl (0.44-1.00); POTASSIUM 3.5 mmol/L (3.5-5.1); TOTAL PROTEIN 7.5 g/dl (6.1-8.1)
--- NOTE | 2016-12-22 16:32 | RADRPT ---
PROCEDURE: US Abdomen. CLINICAL INDICATION: abdominal pain TECHNIQUE: Multiple real-time images were acquired of the patient's right upper quadrant abdomen a nd retroperitoneum utilizing a high resolution transducer. COMPARISON: 02/01/2013 FINDINGS: The liver demonstrates normal echogenicity. The liver is normal in size and no focal solid lesions are seen. The liver measures 15.4 cm in length. The portal vein is patent with normal direction of f low. No intrahepatic biliary dilatation is seen. Multiple calcified gallstones are identified within the gallbladder. There is no pericholecystic fl uid or gallbladder wall thickening. The common bile duct measures 4.7 mm in maximal dimension. The visualized portions of the pancreas are unremarkable. The tail of the pancreas is not seen. No free fluid is identified. The right kidney is normal in size, and demonstrate normal echogenicity and cortical thickness. The right kidney measures 9.5 cm in long dimension. There is no evidence of hydronephrosis. There are no kidney stones. RPTAT: AA IMPRESSION: Cholelithiasis. No evidence of gallbladder wall thickening or pericholecystic fluid. .Erwin Escamilla MD, MD Date Time Electronically viewed and signed by .Erwin Escamilla MD, MD on 12/22/2016 16:32 .S/
[2016-12-22] MEDS ORDERED: HYDR-902 PO (16:45)
[2016-12-22] MEDS ORDERED: DICY10CA60 PO (16:45)
--- NOTE | 2016-12-22 16:47 | ERD ---
ER Documentation Chief Complaint Date/Time DATE: 12/22/16 TIME: 16:45 Chief Complaint EPIGASTRIC BURNING SENSTATION/PAIN SINCE AM HPI This a 46-year-old female complains of sudden onset of pain in the epigastric region radiating to the right back this morning. She describes the pain is sharp. There is no chest pain or shortness of breath. She has nausea but no vomiting and no diarrhea. She said she has had this pain on a few occasions in the past and thinks is gastritis. Pain is currently moderate ROS All systems reviewed and are negative except as per history of present illness. Medications Home Meds Active Scripts Dicyclomine Hcl* (Bentyl*) 10 Mg Capsule, 20 MG PO QID for PAIN, #60 CAP Prov:NELLY CORTEZ DO 12/22/16 Hydrocodone/Acetaminophen ([place] 10-325 Tablet) 1 Each Tablet, 1 TAB PO Q6H Y for PAIN, #20 TAB Prov:NELLY CORTEZ DO 12/22/16 Ferrous Sulfate* (Ferrous Sulfate*) 325 Mg Tabec, 325 MG PO BID, #60 TAB Prov:ARPITA COLLINS NP 11/27/16 Ibuprofen* (Motrin*) 600 Mg Tab, 600 MG PO Q6H Y for PAIN AND OR ELEVATED TEMP, #30 TAB Prov:ARPITA COLLINS NP 11/27/16 Cpoheupyzlkeh-Odatjneydu-Nyxvkcid-Codeine* (Fioricet w/ Codeine*) [id number] 30MG Capsule, 1 CAP PO Q6H Y for PAIN LEVEL 1-5, #20 CAP Prov:ARPITA COLLINS NP 11/27/16 Meclizine Hcl* (Antivert*) 12.5 Mg Tab, 12.5 MG PO Q6H Y for DIZZINESS, #20 TAB Prov:YI KAPLAN PA-C 11/14/16 Lorazepam* (Ativan*) 0.5 Mg Tablet, 0.5 MG PO Q8H Y for ANXIETY, #12 TAB Prov:ELHAM HEWITT MD 11/03/16 Hydrocodone/Acetaminophen ([place] 5-325 Tablet) 1 Each Tablet, 1 TAB PO Q6H Y for PAIN, #7 TAB Prov:ATTILA COLVIN MD 10/22/16 Atorvastatin Calcium (Atorvastatin Calcium) 20 Mg Tablet, 20 MG PO HS for 30 Days, TAB Prov:JESUS MORALES MD, [facility] 10/18/16 Gabapentin* (Gabapentin*) 300 Mg Capsule, 300 MG PO QHS for 30 Days, CAP Prov:JESUS MORALES MD, [facility] 10/18/16 Reported Medications Aspirin* (Aspirin* EC) 81 Mg Tablet., 81 MG PO DAILY, TAB 10/22/16 Omeprazole* (Omeprazole*) 20 Mg Capsule., DAILY 12/09/12 [Depression Meds] No Conflict Check 08/28/12 Allergies Allergies: Coded Allergies: No Known Allergy (Unverified , 10/13/15) PMhx/Soc History of Surgery: Yes (, tubal ligation, B ear surgery.) Anesthesia Reaction: No Hx Neurological Disorder: No Hx Respiratory Disorders: No Hx Cardiac Disorders: No Hx Psychiatric Problems: Yes Hx Miscellaneous Medical Probl: Yes (gastritis) Hx Alcohol Use: No Hx Substance Use: No Hx Tobacco Use: No Smoking Status: Never smoker FmHx Family History: No coronary disease Physical Exam Vitals Vital Signs Date Time Temp Pulse Resp B/P Pulse Ox O2 Delivery O2 Flow Rate FiO2 12/22/16 15:37 98.4 87 18 134/78 99 Physical Exam Const: Well-developed, well-nourished Head: Atraumatic, normocephalic Eyes: Normal Conjunctiva, PERRLA, EOMI, normal sclera, no nystagmus ENT: Normal External Ears, Nose and Mouth, moist mucus membranes. Neck: Full range of motion. No meningismus, no lymphadenopathy. Resp: Clear to auscultation bilaterally, no wheezing, rhonchi, rales Cardio: Regular rate and rhythm, no murmurs, S1 S2 present Abd: Soft, moderate epigastric and right upper quadrant tenderness, non distended. Normal bowel sounds, no guarding or rebound, no pulsitile abdominal masses or bruits Skin: No petechiae or rashes, no ecchymosis , no maculopapular rash Back: No midline or flank tenderness Ext: No cyanosis, or edema, FROM x 4, normal inspection, neurovascularly intact x 4 Neur: Awake and alert, STR 5/5 x 4, sensation intact x 4, no focal findings, cerebellum intact Psych: Normal Mood and Affect Result Diagram: 12/22/16 1556 12/22/16 1556 Results 24 hrs Laboratory Tests Test 12/22/16 15:56 White Blood Count 11.710^3/ul Red Blood Count 3.7810^6/ul Hemoglobin 11.9g/dl Hematocrit 34.0% Mean Corpuscular Volume 89.9fl Mean Corpuscular Hemoglobin 31.5pg Mean Corpuscular Hemoglobin Concent 35.0g/dl Red Cell Distribution Width 15.4% Platelet Count 13128^3/UL Mean Platelet Volume 11.0fl Neutrophils % 60.9% Lymphocytes % 28.0% Monocytes % 6.3% Eosinophils % 3.4% Basophils % 0.6% Nucleated Red Blood Cells % 0.0/100WBC Neutrophils # 7.110^3/ul Lymphocytes # 3.310^3/ul Monocytes # 0.710^3/ul Eosinophils # 0.410^3/ul Basophils # 0.110^3/ul Nucleated Red Blood Cells # 0.010^3/ul Sodium Level 137mmol/L Potassium Level 3.5mmol/L Chloride Level 106mmol/L Carbon Dioxide Level 24mmol/L Anion Gap 11 Blood Urea Nitrogen 14mg/dl Creatinine 0.73mg/dl Glucose Level 102mg/dl Calcium Level 9.3mg/dl Total Bilirubin 0.2mg/dl Direct Bilirubin 0.00mg/dl Indirect Bilirubin 0.2mg/dl Aspartate Amino Transf (AST/SGOT) 28IU/L Alanine Aminotransferase (ALT/SGPT) 50IU/L Alkaline Phosphatase 114IU/L Total Protein 7.5g/dl Albumin 4.6g/dl Globulin 2.90g/dl Albumin/Globulin Ratio 1.58 Lipase 117U/L Current Medications Medications (Trade) Dose Ordered Sig/López Route PRN Reason Start Time Stop Time Status Last Admin Dose Admin Hydromorphone HCl (Dilaudid) 1 mg ONCE STAT IV 12/22/16 15:47 12/22/16 15:48 DC 12/22/16 15:54 Ondansetron HCl (Zofran Inj) 4 mg ONCE STAT IV 12/22/16 15:47 12/22/16 15:48 DC 12/22/16 15:54 Famotidine (Pepcid Iv) 20 mg ONCE STAT IV 12/22/16 15:47 12/22/16 15:48 DC 12/22/16 15:54 Procedures/MDM PROCEDURE: US Abdomen. CLINICAL INDICATION: abdominal pain TECHNIQUE: Multiple real-time images were acquired of the patient's right upper quadrant abdomen and retroperitoneum utilizing a high resolution transducer. COMPARISON: 02/01/2013 FINDINGS: The liver demonstrates normal echogenicity. The liver is normal in size and no focal solid lesions are seen. The liver measures 15.4 cm in length. The portal vein is patent with normal direction of flow. No intrahepatic biliary dilatation is seen. Multiple calcified gallstones are identified within the gallbladder. There is no pericholecystic fluid or gallbladder wall thickening. The common bile duct measures 4.7 mm in maximal dimension. The visualized portions of the pancreas are unremarkable. The tail of the pancreas is not seen. No free fluid is identified. The right kidney is normal in size, and demonstrate normal echogenicity and cortical thickness. The right kidney measures 9.5 cm in long dimension. There is no evidence of hydronephrosis. There are no kidney stones. RPTAT: AA IMPRESSION: Cholelithiasis. No evidence of gallbladder wall thickening or pericholecystic fluid. .Erwin Escamilla MD, MD Date Time Electronically viewed and signed by .Erwin Escamilla MD, on 12/22/2016 16: 32 .S/ CC: NELLY CORTEZ DO Patient's pain is much better. She does have gallstones but no evidence of cholecystitis. Will refer her to general surgery Departure Diagnosis: Primary Impression: Gallstones Condition: Stable Patient Instructions: Biliary Colic With Gallstone (Confirmed) NELLY CORTEZ DO Dec 22, 2016 16:47
[2016-12-22] MEDS ORDERED: morphine 4 MG/ML VIAL IV STA (16:48)
== END 2016-12-22 17:28 | disposition home or self-care (01) ==
LOC: FTE 15:28
DX: K80.20 Calculus of gallbladder without cholecystitis without obstruction (principal); Z79.82 Long term (current) use of aspirin
CPT/HCPCS: 36415; 76705; 80053; 83690; 85025; 96374; 96375; J1170; J2270; J2405; Z7502; Z7610

== ENCOUNTER 2017-01-31 01:58 | Emergency (ER) | END 2017-01-31 04:17 | disposition home or self-care (01) | DX: K80.50 Calculus of bile duct without cholangitis or cholecystitis without obstruction (principal); N39.0 Urinary tract infection, site not specified; Z79.82 Long term (current) use of aspirin | CPT/HCPCS: 36415; 80053; 81003; 83690; 85025; 96374; 96375; J1170; J2270; J2405; J7030; Z7502 ==

== ENCOUNTER 2017-02-04 11:40 | Day surgery (SDC) | payer OTHER ==
[~2017-02-04] VITALS: Ht 167.6 cm; Wt 76.0 kg
[2017-02-04] VITALS (23 sets, daily range): BP systolic 93–123; BP diastolic 60–76; PULSE 60–70; RESP 8–20; Ht 167.6 cm; Wt 76.0 kg
[~2017-02-04 11:40] MED LIST changes: -DEPRESSION MEDS; +DICY10CA60 PO; +DIPHENHYDRAMINE 50 MG INJ IV PRN; +FENTAnyl 50 MCG/ML VIAL IV PRN; +HYDROmorphONE (0.2 MG/ML) 10ML SYG IV PRN; -LORA-441 PO; -MECL12.574 PO; +MEPERIDINE 25 MG INJ IV PRN; +ONDANSETRON 4 MG INJ IV PRN; +OXYCODONE/ACETAMINOPHEN (5/325) TAB PO PRN; +PROCHLORPERAZINE 10 MG INJ IV PRN; +SULF1TAB31 PO
[2017-02-04] MEDS ORDERED: SOD CHLORIDE 0.9% 1,000 ML IV ONE (13:00)
[2017-02-04] MEDS ORDERED: CEFAZOLIN 2 GM/50 ML (PMX) 50 ML IVPB ONE (13:00)
[2017-02-04] MEDS ORDERED: ROCURONIUM 50 MG INJ ONE (13:26)
[2017-02-04] MEDS ORDERED: SUCCINYLCHOLINE CHLORIDE 100 MG/5 ML SYG IV ONE (13:26)
[2017-02-04] MEDS ORDERED: MIDAZOLAM 1 MG/ML 2 ML INJ ONE (13:26)
[2017-02-04] MEDS ORDERED: PROPOFOL 0 ML ONE (13:26)
[2017-02-04] MEDS ORDERED: FENTAnyl 50 MCG/ML VIAL ONE (13:26)
[2017-02-04] MEDS ORDERED: LIDOCAINE 2% (SDV) 5 ML INJ ONE (13:26)
[2017-02-04] MEDS ORDERED: CEFAZOLIN 1 GM INJ ONE (13:27)
[2017-02-04] MEDS ORDERED: PROPOFOL 20 ML ONE (13:33)
[2017-02-04] MEDS ORDERED: ONDANSETRON 4 MG INJ ONE (15:10)
[2017-02-04] MEDS ORDERED: DEXAMETHASONE 4 MG/ML 1 ML INJ ONE (15:10)
[2017-02-04] MEDS ORDERED: METOCLOPRAMIDE 10 MG INJ ONE (15:10)
[2017-02-04] MEDS ORDERED: BUPIVACAINE 0.25% (MPF) 30 ML INJ INJ ONE (15:28)
[2017-02-04] MEDS ORDERED: KETOROLAC 30 MG INJ ONE (15:28)
[2017-02-04] MEDS ORDERED: SUGAMMADEX SODIUM 200 MG/2 ML VIAL IV ONE (15:28)
--- NOTE | 2017-02-04 15:39 | OPR ---
Date/Time of Note Date/Time of Note DATE: 02/04/17 TIME: 15:36 Operative Report Procedure Date: Feb 04, 2017 Preoperative Diagnosis symptomatic gallstones Postoperative Diagnosis same Operation Performed 1. laparoscopic cholecystectomy 2. therapeutic injection of subcutaneous marcaine Surgeon: Nita DICKINSON Director Of Collections And Archives: DIXIE HERNANDEZ MD Anesthesia Type: general Estimated Blood Loss: minimal Specimens gallbladder Grafts/Implants: none Complications: no Indications This is a 46-year-old female with symptomatic gallstones. She requests surgical excision of her gallbladder. Risks alternatives benefits and percent were discussed with the patient. Patient expresses understanding and consents to the operation. Procedure Description Patient is taken to the OR and prepped and draped in usual sterile fashion. Surgical timeout is performed. IV antibiotics were given. Infraumbilical transverse incision is made with a 15 blade. Dissection cautery was carried onto the fascia. The fascia was grasped with Zanoni's and divided with curved Hanna scissors. 0 Vicryl U stitches placed into the fascia. Balloon Clark trocar is introduced. Pneumoperitoneum is established. Midepigastric 12 mm optical trocar was placed under direct visualization. Right upper quadrant right upper flank 5 mm optical trochars were placed under direct visualization. Initial visualization showed adhesions to the gallbladder. These were taken down bluntly. Lateral dissection was performed with the cautery. Gallbladder was retracted in a lateral manner. The cystic duct was identified the critical view is established. The cystic duct was divided with 3 clips proximal and due to the distal thickened tissue this area was divided with a 35 mm echelon vascular stapler. The cystic artery was divided with 3 clips proximal 1 clip distal. Additional clips were placed for reinforcement. The gallbladder was taken off the gallbladder bed. Hemostasis is established. The gallbladder was retrieved using an Endo Catch bag. Ports removed under direct visualization. 0 Vicryl U stitch was tied down. Skin was closed using skin helen. Therapeutic subcutaneous Marcaine was injected throughout all of the port sites. Dry dressings were applied. Nita DICKINSON Feb 04, 2017 15:39
[2017-02-04] MEDS ORDERED: HYDROCODONE/APAP (5/325) TAB PO ONE (16:00)
[2017-02-04] MEDS: HYDROmorphONE (0.2 MG/ML) 10ML SYG IV PRN ×2 (16:17→16:36)
== END 2017-02-04 18:16 | disposition home or self-care (01) ==
LOC: SDS 11:40
PROVIDERS: ATTEND Surgery
DX: K80.10 Calculus of gallbladder with chronic cholecystitis without obstruction (principal); K21.9 Gastro-esophageal reflux disease without esophagitis; E66.9 Obesity, unspecified; Z68.27 Body mass index [BMI] 27.0-27.9, adult
CPT/HCPCS: 47562; 84703; J0690; J1100; J1170; J1885; J2250; J2405; J2765; J3010; Z7512; Z7610; 88304; J7999

== ENCOUNTER 2017-02-05 21:57 | Emergency (ER) | payer OTHER ==
[~2017-02-05] VITALS: Ht 162.6 cm; Wt 78.5 kg
[~2017-02-05 21:57] MED LIST changes: -DIPHENHYDRAMINE 50 MG INJ IV PRN; -FENTAnyl 50 MCG/ML VIAL IV PRN; -HYDROmorphONE (0.2 MG/ML) 10ML SYG IV PRN; -MEPERIDINE 25 MG INJ IV PRN; -ONDANSETRON 4 MG INJ IV PRN; -OXYCODONE/ACETAMINOPHEN (5/325) TAB PO PRN; -PROCHLORPERAZINE 10 MG INJ IV PRN
[2017-02-05 22:01] VITALS: Ht 162.6 cm; Wt 78.5 kg
[2017-02-05] MEDS ORDERED: ONDANSETRON 4 MG INJ IV STA (22:42)
[2017-02-05] MEDS ORDERED: SOD CHLORIDE 0.9% 500 ML IV STA (22:42)
[2017-02-05] MEDS ORDERED: morphine 4 MG/ML VIAL IV STA (22:42)
[2017-02-05 23:56] LABS: BASOPHIL # 0.1 10^3/ul (0.0-0.1); BASOPHILS % 0.4 % (0.0-2.0); EOSINOPHILS # 0.3 10^3/ul (0.0-0.5); EOSINOPHILS % 1.8 % (0.0-7.0); HEMATOCRIT 37.2 % (37.0-47.0); HEMOGLOBIN 12.5 g/dl (12.0-16.0); LYMPHOCYTES # 4.7 10^3/ul (0.8-2.9); LYMPHOCYTES % 31.1 % (15.0-51.0); MEAN CORPUSCULAR HEMOGLOBIN 31.6 pg (29.0-33.0); MEAN CORPUSCULAR HGB CONC 33.6 g/dl (32.0-37.0); MEAN CORPUSCULAR VOLUME 94.2 fl (82.0-101.0); MEAN PLATELET VOLUME 11.5 fl (7.4-10.4); MONOCYTES % 6.5 % (0.0-11.0); NEUTROPHILS % 59.5 % (39.0-77.0); PLATELET COUNT 244 10^3/UL (140-415); RED BLOOD COUNT 3.95 10^6/ul (4.20-5.40); WHITE BLOOD COUNT 15.1 10^3/ul (4.8-10.8)
[2017-02-06 00:13] LABS: INR 1.16; PROTIME 14.9 Sec (12.2-14.2); PT RATIO 1.2
[2017-02-06 00:14] LABS: PARTIAL THROMBOPLASTIN TIME 29.7 Sec (25.0-35.0)
[2017-02-06 00:20] LABS: ALANINE AMINOTRANSFERASE 69 IU/L (13-69); ALBUMIN 3.7 g/dl (3.3-4.9); ALBUMIN/GLOBULIN RATIO 1.05; ALKALINE PHOSPHATASE 114 IU/L (42-121); ANION GAP 17 (8-16); ASPARTATE AMINO TRANSFERASE 39 IU/L (15-46); BILIRUBIN,INDIRECT 0.1 mg/dl (0-1.1); BILIRUBIN,TOTAL 0.1 mg/dl (0.2-1.3); BLOOD UREA NITROGEN 19 mg/dl (7-20); CARBON DIOXIDE 25 mmol/L (21-31); CHLORIDE 102 mmol/L (97-110); CREATININE 0.73 mg/dl (0.44-1.00); GLUCOSE 91 mg/dl (70-220); POTASSIUM 3.9 mmol/L (3.5-5.1); SODIUM 140 mmol/L (135-144); TOTAL PROTEIN 7.2 g/dl (6.1-8.1)
--- NOTE | 2017-02-06 00:24 | RADRPT ---
PROCEDURE: Portable chest x-ray. CLINICAL INDICATION: 46 years of age, female. Abdominal pain. TECHNIQUE: Portable AP view of the chest. COMPARISON: October 22, 2016 FINDINGS: Cardiomediastinal contours are normal. Lungs are clear. Negative for pleural effusion or pneumothorax. No acute bony abnormality. IMPRESSION: Negative for evidence of acute chest process. RPTAT: HCTS Physician Julien Date Time Electronically viewed and signed by Lupe Bryant Physician on 02/06/2017 00:24 CS/
[2017-02-06 00:40] LABS: TROPONIN-I < 0.012 ng/ml (0.00-0.12)
[2017-02-06 00:40] LABS: ADD UMIC YES; UR ASCORBIC ACID NEGATIVE (NEGATIVE); UR BACTERIA FEW /HPF (NONE SEEN); UR BILIRUBIN (Dip) NEGATIVE (NEGATIVE); UR BLOOD (Dip) 1+ mg/dL (NEGATIVE); UR CLARITY SLIGHTLY CLOUDY (CLEAR); UR COLOR YELLOW (YELLOW); UR GLUCOSE (Dip) NEGATIVE (NEGATIVE); UR KETONES (Dip) NEGATIVE (NEGATIVE); UR LEUKOCYTE ESTERASE (Dip) TRACE Leu/ul (NEGATIVE); UR NITRITE (Dip) NEGATIVE (NEGATIVE); UR RBC 1 /HPF (0-5); UR SPECIFIC GRAVITY (Dip) 1.009 (1.003-1.030); UR SQUAMOUS EPITHELIAL CELL FEW /HPF (FEW); UR TOTAL PROTEIN (Dip) NEGATIVE (NEGATIVE); UR UROBILINOGEN (Dip) NEGATIVE (NEGATIVE)
--- NOTE | 2017-02-06 01:18 | ERD ---
ER Documentation Chief Complaint Date/Time DATE: 02/06/17 TIME: 01: Chief Complaint sp cholecystectomy yesterdaym c/o back pain w/ sob since yesterday HPI 46-year-old female with back pain. Patient status post cholecystectomy yesterday. No nausea no vomiting no fevers no chills. No other current complaints. ROS All systems reviewed and are negative except as per history of present illness. Medications Home Meds Active Scripts Hydrocodone/Acetaminophen ([place] 5-325 Tablet) 1 Each Tablet, 1 TAB PO Q6H Y for PAIN, #7 TAB Prov:ATTILA COLVIN MD 01/31/17 Ibuprofen* (Motrin*) 600 Mg Tab, 600 MG PO Q6, #30 TAB Prov:ATTILA COLVIN MD 01/31/17 Sulfamethoxazole/Trimethoprim* (Bactrim Ds* Tablet) 1 Each Tablet, 1 TAB PO BID , #14 TAB Prov:ATTILA COLVIN MD 01/31/17 Dicyclomine Hcl* (Bentyl*) 10 Mg Capsule, 20 MG PO QID for PAIN, #60 CAP Prov:NELLY CORTEZ DO 12/22/16 Ferrous Sulfate* (Ferrous Sulfate*) 325 Mg Tabec, 325 MG PO BID, #60 TAB Prov:ARPITA COLLINS NP 11/27/16 Vbkuozbvbmtsp-Amqspfktye-Goycfqso-Codeine* (Fioricet w/ Codeine*) [id number]- 30MG Capsule, 1 CAP PO Q6H Y for PAIN LEVEL 1-5, #20 CAP Prov:ARPITA COLLINS NP 11/27/16 Atorvastatin Calcium (Atorvastatin Calcium) 20 Mg Tablet, 20 MG PO HS for 30 Days, TAB Prov:JESUS MORALES MD, [facility] 10/18/16 Gabapentin* (Gabapentin*) 300 Mg Capsule, 300 MG PO QHS for 30 Days, CAP Prov:JESUS MORALES MD, [facility] 10/18/16 Reported Medications Aspirin* (Aspirin* EC) 81 Mg Tablet., 81 MG PO DAILY, TAB 10/22/16 Omeprazole* (Omeprazole*) 20 Mg Capsule., DAILY 12/09/12 Discontinued Reported Medications [Depression Meds] No Conflict Check 08/28/12 Discontinued Scripts Hydrocodone/Acetaminophen ([place] 10-325 Tablet) 1 Each Tablet, 1 TAB PO Q6H Y for PAIN, #20 TAB Prov:NELLY CORTEZ DO 12/22/16 Ibuprofen* (Motrin*) 600 Mg Tab, 600 MG PO Q6H Y for PAIN AND OR ELEVATED TEMP, #30 TAB Prov:ARPITA COLLINS NP 11/27/16 Meclizine Hcl* (Antivert*) 12.5 Mg Tab, 12.5 MG PO Q6H Y for DIZZINESS, #20 TAB Prov:YI KAPLAN PA-C 11/14/16 Lorazepam* (Ativan*) 0.5 Mg Tablet, 0.5 MG PO Q8H Y for ANXIETY, #12 TAB Prov:ELHAM HEWITT MD 11/03/16 Hydrocodone/Acetaminophen ([place] 5-325 Tablet) 1 Each Tablet, 1 TAB PO Q6H Y for PAIN, #7 TAB Prov:ATTILA COLVIN MD 10/22/16 Allergies Allergies: Coded Allergies: No Known Allergy (Unverified , 01/31/17) PMhx/Soc History of Surgery: Yes (TBL, X 2 C SECTIONS X 2 EAR SX, CHOLECYSTECTOMY) Anesthesia Reaction: No Hx Neurological Disorder: No Hx Respiratory Disorders: No Hx Cardiac Disorders: No Hx Psychiatric Problems: No Hx Miscellaneous Medical Probl: No Hx Alcohol Use: Yes Hx Substance Use: No Hx Tobacco Use: No Smoking Status: Never smoker Physical Exam Vitals Vital Signs Date Time Temp Pulse Resp B/P Pulse Ox O2 Delivery O2 Flow Rate FiO2 02/05/17 23:15 98.0 68 20 127/68 100 Room Air 02/05/17 22:01 98.3 76 20 140/75 97 Physical Exam Const: [] Head: Atraumatic Eyes: Normal Conjunctiva ENT: Normal External Ears, Nose and Mouth. Neck: Full range of motion..~ No meningismus. Resp: Clear to auscultation bilaterally Cardio: Regular rate and rhythm, no murmurs Abd: Soft, non tender, non distended. Normal bowel sounds Skin: No petechiae or rashes Back: No midline or flank tenderness Ext: No cyanosis, or edema Neur: Awake and alert Psych: Normal Mood and Affect Result Diagram: 02/05/17231202/05/172312 Results 24 hrs Laboratory Tests Test 02/05/17 23:13 02/05/17 23:52 White Blood Count 15.110^3/ul Red Blood Count 3.9510^6/ul Hemoglobin 12.5g/dl Hematocrit 37.2% Mean Corpuscular Volume 94.2fl Mean Corpuscular Hemoglobin 31.6pg Mean Corpuscular Hemoglobin Concent 33.6g/dl Red Cell Distribution Width 14.0% Platelet Count 81261^3/UL Mean Platelet Volume 11.5fl Neutrophils % 59.5% Lymphocytes % 31.1% Monocytes % 6.5% Eosinophils % 1.8% Basophils % 0.4% Nucleated Red Blood Cells % 0.0/100WBC Neutrophils # (Manual) 910^3/ul Lymphocytes # 4.710^3/ul Monocytes # 1.010^3/ul Eosinophils # 0.310^3/ul Basophils # 0.110^3/ul Nucleated Red Blood Cells # 0.010^3/ul Prothrombin Time 14.9Sec Prothrombin Time Ratio 1.2 INR International Normalized Ratio 1.16 Activated Partial Thromboplast Time 29.7Sec Sodium Level 140mmol/L Potassium Level 3.9mmol/L Chloride Level 102mmol/L Carbon Dioxide Level 25mmol/L Anion Gap 17 Blood Urea Nitrogen 19mg/dl Creatinine 0.73mg/dl Glucose Level 91mg/dl Calcium Level 9.0mg/dl Total Bilirubin 0.1mg/dl Direct Bilirubin 0.00mg/dl Indirect Bilirubin 0.1mg/dl Aspartate Amino Transf (AST/SGOT) 39IU/L Alanine Aminotransferase (ALT/SGPT) 69IU/L Alkaline Phosphatase 114IU/L Troponin I < 0.012ng/ml Total Protein 7.2g/dl Albumin 3.7g/dl Globulin 3.50g/dl Albumin/Globulin Ratio 1.05 Lipase 130U/L Urine Color YELLOW Urine Clarity SLIGHTLY CLOUDY Urine pH 6.0 Urine Specific [place] 1.009 Urine Ketones NEGATIVEmg/dL Urine Nitrite NEGATIVEmg/dL Urine Bilirubin NEGATIVEmg/dL Urine Urobilinogen NEGATIVEmg/dL Urine Leukocyte Esterase TRACELeu/ul Urine Microscopic RBC 1/HPF Urine Microscopic WBC 1/HPF Urine Squamous Epithelial Cells FEW/HPF Urine Bacteria FEW/HPF Urine Hemoglobin 1+mg/dL Urine Glucose NEGATIVEmg/dL Urine Total Protein NEGATIVEmg/dl Current Medications Medications (Trade) Dose Ordered Sig/López Route PRN Reason Start Time Stop Time Status Last Admin Dose Admin Sodium Chloride (NS) 500 ml @ 500 mls/hr Q1H STAT IV 02/05/17 22:42 02/05/17 23:41 DC 02/05/17 23:11 Morphine Sulfate (morphine) 4 mg ONCE STAT IV 02/05/17 22:42 02/05/17 22:44 DC 02/05/17 23:11 Ondansetron HCl (Zofran Inj) 4 mg ONCE STAT IV 02/05/17 22:42 02/05/17 22:44 DC 02/05/17 23:10 Procedures/MDM Medical decision-making: Patient with no postoperative pain. No evidence of infection. At this point clinically stable for outpatient management. Follow- up in 8 hours Departure Diagnosis: Primary Impression: Post-op pain Condition: Stable YI CARDOZA Feb 06, 2017 01:18
[2017-02-06] MEDS ORDERED: HYDR-902 PO (01:19)
[2017-02-06 02:02] VITALS: BP 121/71; PULSE 65; RESP 14; TEMP 98.3
== END 2017-02-06 02:46 | disposition home or self-care (01) ==
LOC: E/R 21:57
DX: G89.18 Other acute postprocedural pain (principal); M54.9 Dorsalgia, unspecified; Z79.82 Long term (current) use of aspirin
CPT/HCPCS: 36415; 71010; 80053; 81001; 83690; 84484; 85025; 85610; 85730; 93005; 96374; 96375; J2270; J2405; J7040; Z7502

== ENCOUNTER 2017-02-14 19:30 | Emergency (ER) | payer OTHER ==
[~2017-02-14] VITALS: Ht 160 cm; Wt 77.5 kg
[~2017-02-14 19:30] MED LIST changes: -BUTA1CAP39 PO; +HYDR-902 PO; -OMEP20CA16; -SULF1TAB31 PO
[2017-02-14 19:37] VITALS: Ht 160 cm; Wt 77.5 kg
[2017-02-14] MEDS ORDERED: CEPH-443 PO (21:52)
--- NOTE | 2017-02-14 22:07 | ERD ---
ER Documentation Chief Complaint Date/Time DATE: 02/14/17 TIME: 22:01 Chief Complaint wound check for abdomen surgery HPI 46-year-old female patient with a recent status post cholecystectomy on 2016 presents to the ED for a wound check for her laparoscopic lacerations. Reports that she started to notice some pus earlier this morning. States that Dr. Dickinson performed the surgery. Reports that she has not followed up with his clinic. Denies any increased redness or swelling. States that she still has some slight abdominal pain however it is improving. Denies any chest pain, shortness of breath, nausea, vomiting, diarrhea, constipation, hematemesis , melena, rashes. Patient states that she has been taking [place] for her pain which has been helping with her pain. ROS All systems reviewed and are negative except as per history of present illness. Medications Home Meds Active Scripts Cephalexin* (Keflex*) 500 Mg Capsule, 500 MG PO QID for 7 Days, CAP Prov:KAREEM GONZALES PA-C 02/14/17 Hydrocodone/Acetaminophen ([place] 10-325 Tablet) 1 Each Tablet, 1 TAB PO Q6H Y for PAIN, #20 TAB Prov:YI CARDOZA 02/06/17 Hydrocodone/Acetaminophen ([place] 5-325 Tablet) 1 Each Tablet, 1 TAB PO Q6H Y for PAIN, #7 TAB Prov:ATTILA COLVNI MD 01/31/17 Ibuprofen* (Motrin*) 600 Mg Tab, 600 MG PO Q6, #30 TAB Prov:ATTILA COLVIN MD 01/31/17 Dicyclomine Hcl* (Bentyl*) 10 Mg Capsule, 20 MG PO QID for PAIN, #60 CAP Prov:NELLY CORTEZ DO 12/22/16 Ferrous Sulfate* (Ferrous Sulfate*) 325 Mg Tabec, 325 MG PO BID, #60 TAB Prov:ARPITA COLLINS NP 11/27/16 Atorvastatin Calcium (Atorvastatin Calcium) 20 Mg Tablet, 20 MG PO HS for 30 Days, TAB Prov:JESUS MORALES MD, [facility] 10/18/16 Gabapentin* (Gabapentin*) 300 Mg Capsule, 300 MG PO QHS for 30 Days, CAP Prov:JESUS MORALES MD, [facility] 10/18/16 Reported Medications Aspirin* (Aspirin* EC) 81 Mg Tablet.dr, 81 MG PO DAILY, TAB 10/22/16 Allergies Allergies: Coded Allergies: No Known Allergy (Unverified , 01/31/17) PMhx/Soc History of Surgery: Yes (TBL, X 2 C SECTIONS X 2 EAR SX, CHOLECYSTECTOMY) Anesthesia Reaction: No Hx Neurological Disorder: No Hx Respiratory Disorders: No Hx Cardiac Disorders: No Hx Psychiatric Problems: No Hx Miscellaneous Medical Probl: No Hx Alcohol Use: Yes Hx Substance Use: No Hx Tobacco Use: No Smoking Status: Never smoker Physical Exam Vitals Vital Signs Date Time Temp Pulse Resp B/P Pulse Ox O2 Delivery O2 Flow Rate FiO2 02/14/17 19:37 99.4 92 20 111/70 100 Physical Exam Const: [id number]-fgq-jbwnmeusc, well-nourished. In no acute distress. Head: Atraumatic, normocephalic Eyes: Normal Conjunctiva without injection. No purulent discharge. ENT: Normal external ear, nose. Moist oropharynx without tonsillar exudates. Non -erythematous pharynx. Uvula midline. No drooling. No trismus. Neck: No cervical midline tenderness. Full range of motion. No meningismus. No cervical lymphadenopathy. No JVD. Resp: Clear to auscultation bilaterally. No wheezing, rhonchi, rales, or crackles. No accessory muscle use. No retractions. Cardio: Regular rate and rhythm. No murmurs, rubs or gallops. Abd: Soft, non tender, non distended. Normal bowel sounds. No palpable masses. No rebound tenderness. No guarding. Negative McBurney's point. Negative psoas sign. Negative obturator sign. : See exam in MDM. Skin: No petechiae, purpura. Three laparoscopic lacerations. One laparoscopic laceration with slight Serosanguineous fluid noted. No purulent discharge. No surrounding erythema. No fluctuance or induration. Back: No midline tenderness. No CVA tenderness. Ext: No cyanosis, or edema. Neur: Awake and alert. Normal gait. Normal coordination. Psych: Normal Mood and Affect Procedures/MDM 46-year-old female patient with a recent status post cholecystectomy on February 04, 2017 since the ED for a wound check. Patient is afebrile nontoxic appearing. Patient has normal vital signs. Well-appearing lacerations from surgery are noted. No signs of dehiscence. Serosanguineous fluid noted. Patient will be prescribed a course of Keflex and is appropriate for outpatient management. There is low suspicion for deep space infection, abscess, postop complication, or other emergent conditions. Patient was recently here on February 05, 2017 and lab work was obtained for her postop pain. Patient reports that her pain has been improving. No indication for another workup. Patient was strictly instructed to follow-up with Dr. Dickinson tomorrow. Discharge medications: Keflex Follow up with Dr. Dickinson tomorrow for further care and treatment. Instructed patient to return to the ED sooner for any worsening symptoms. Patient's questions were answered. Patient understood and agreed with discharge plan. Patient discharged stable. Departure Diagnosis: Primary Impression: Encounter for post surgical wound check Condition: Stable Patient Instructions: Post Op Wound Check, General Referrals: Nita DICKINSON [facility] YOU HAVE RECEIVED A MEDICAL SCREENING EXAM AND THE RESULTS INDICATE THAT YOU DO NOT HAVE A CONDITION THAT REQUIRES URGENT TREATMENT IN THE EMERGENCY DEPARTMENT. FURTHER EVALUATION AND TREATMENT OF YOUR CONDITION CAN WAIT UNTIL YOU ARE SEEN IN YOUR DOCTORS OFFICE WITHIN THE NEXT 1-2 DAYS. IT IS YOUR RESPONSIBILITY TO MAKE AN APPOINTMENT FOR FOLOW-UP CARE. IF YOU HAVE A PRIMARY DOCTOR --you should call your primary doctor and schedule an appointment IF YOU DO NOT HAVE A PRIMARY DOCTOR YOU CAN CALL OUR PHYSICIAN REFERRAL HOTLINE AT IF YOU CAN NOT AFFORD TO SEE A PHYSICIAN YOU CAN CHOSE FROM THE FOLLOWING [facility] [address] [facility] [address] [facility]. [facility] [address] [facility] [facility] [address] [facility] [address] [facility]. [facility]. [address] [facility]. [facility] YOU HAVE RECEIVED A MEDICAL SCREENING EXAM AND THE RESULTS INDICATE THAT YOU DO NOT HAVE A CONDITION THAT REQUIRES URGENT TREATMENT IN THE EMERGENCY DEPARTMENT. FURTHER EVALUATION AND TREATMENT OF YOUR CONDITION CAN WAIT UNTIL YOU ARE SEEN IN YOUR DOCTORS OFFICE WITHIN THE NEXT 1-2 DAYS. IT IS YOUR RESPONSIBILITY TO MAKE AN APPOINTMENT FOR FOLOW-UP CARE. IF YOU HAVE A PRIMARY DOCTOR --you should call your primary doctor and schedule and appointment IF YOU DO NOT HAVE A PRIMARY DOCTOR YOU CAN CALL OUR PHYSICIAN REFERRAL HOTLINE AT . IF YOU CAN NOT AFFORD TO SEE A PHYSICIAN YOU CAN CHOSE FROM THE FOLLOWING [facility] INSTITUTIONS: [facility] [address] [place] [address] [facility] [address] [place], [place] [id number] [place] [address] [address] [place] [address] [facility]CIALTIES Additional Instructions: Es importante que siga con el Dr. Dickinson maana chapin cirujano para evaluacin adicional y tratamiento. Regrese a estas instalaciones si no se mejora reginaldo esperbamos o reginaldo le dijimos. KAREEM GONZALES PA-C Feb 14, 2017 22:07
== END 2017-02-14 22:23 | disposition home or self-care (01) ==
LOC: FTE 19:30
DX: G89.18 Other acute postprocedural pain (principal); R10.9 Unspecified abdominal pain; Z48.01 Encounter for change or removal of surgical wound dressing
CPT/HCPCS: 99283

== ENCOUNTER 2017-03-14 21:03 | Emergency (ER) | payer OTHER ==
[~2017-03-14] VITALS: Ht 160 cm; Wt 79.0 kg
[~2017-03-14 21:03] MED LIST changes: +CEPH-443 PO
[2017-03-14 21:06] VITALS: Ht 160 cm; Wt 79.0 kg
[2017-03-14] MEDS ORDERED: KETOROLAC 30 MG INJ IM STA (23:29)
--- NOTE | 2017-03-14 23:30 | ERD ---
ER Documentation Chief Complaint Date/Time DATE: 03/14/17 TIME: 23:30 Chief Complaint lower abd pain, rectal itchiness, HPI Patient is a 46 year old female ROS All systems reviewed and are negative except as per history of present illness. Medications Home Meds Active Scripts Hydrocortisone Acetate (Anusol-Hc) 25 Mg Supp.rect, 1 SUPP NC BID Y for HEMORROID PAIN/ITCHING, #12 SUPP.RECT Prov:NASEEM RUST PA-C 03/15/17 Docusate Sodium* (Colace*) 100 Mg Capsule, 100 MG PO TID, #30 CAP Prov:NASEEM RUST PA-C 03/15/17 Cephalexin* (Keflex*) 500 Mg Capsule, 500 MG PO QID for 7 Days, CAP Prov:KAREEM GONZALES PA-C 02/14/17 Hydrocodone/Acetaminophen ([place] 10-325 Tablet) 1 Each Tablet, 1 TAB PO Q6H Y for PAIN, #20 TAB Prov:YI CARDOZA 02/06/17 Hydrocodone/Acetaminophen ([place] 5-325 Tablet) 1 Each Tablet, 1 TAB PO Q6H Y for PAIN, #7 TAB Prov:ATTILA COLVIN MD 01/31/17 Ibuprofen* (Motrin*) 600 Mg Tab, 600 MG PO Q6, #30 TAB Prov:ATTILA COLVIN MD 01/31/17 Dicyclomine Hcl* (Bentyl*) 10 Mg Capsule, 20 MG PO QID for PAIN, #60 CAP Prov:NELLY CORTEZ DO 12/22/16 Ferrous Sulfate* (Ferrous Sulfate*) 325 Mg Tabec, 325 MG PO BID, #60 TAB Prov:ARPITA COLLINS NP 11/27/16 Atorvastatin Calcium (Atorvastatin Calcium) 20 Mg Tablet, 20 MG PO HS for 30 Days, TAB Prov:JESUS MORALES MD, [facility] 10/18/16 Gabapentin* (Gabapentin*) 300 Mg Capsule, 300 MG PO QHS for 30 Days, CAP Prov:JESUS MORALES MD, [facility] 10/18/16 Reported Medications Aspirin* (Aspirin* EC) 81 Mg Tablet.dr, 81 MG PO DAILY, TAB 10/22/16 Allergies Allergies: Coded Allergies: No Known Allergy (Unverified , 01/31/17) PMhx/Soc History of Surgery: Yes (TBL, X 2 C SECTIONS X 2 EAR SX, CHOLECYSTECTOMY) Anesthesia Reaction: No Hx Neurological Disorder: No Hx Respiratory Disorders: No Hx Cardiac Disorders: No Hx Psychiatric Problems: No Hx Miscellaneous Medical Probl: No Hx Alcohol Use: Yes Hx Substance Use: No Hx Tobacco Use: No Smoking Status: Never smoker Physical Exam Vitals Vital Signs Date Time Temp Pulse Resp B/P Pulse Ox O2 Delivery O2 Flow Rate FiO2 03/14/17 21:06 98.2 72 20 121/74 98 Physical Exam GENERAL: Well-developed, well-nourished female. Appears in no acute distress. HEAD: Normocephalic, atraumatic. EYES: Pupils are equally reactive bilaterally. EOMs grossly intact. No conjunctival erythema. ENT: Moist mucous membranes. No uvula deviation. No kissing tonsils. No exudates. NECK: Supple. No lymphadenopathy or thyromegaly. No meningismus. negative kernig. negative brudinski. LUNG: Clear to auscultation bilaterally. No rhonchi, wheezing, rales or coarse breath sounds. HEART: Regular rate and rhythm. No murmurs, rubs or gallops. ABDOMEN: No scars, ecchymosis or rashes noted. tenderness in rlq and mid abdominal and nondistended. Positive bowel sounds in all four quadrants. No rebound tenderness, no guarding.. No CVA tenderness. : one external hemorrhoid visible. no thrombosed hemorroid. BACK: No midline tenderness. Extremities: Equal pulses bilaterally. No peripheral clubbing, cyanosis or edema. No unilateral leg swelling. NEUROLOGIC: Alert and oriented. Moving all four extremities. 5/5 strength in all extremities. Normal speech. Steady gait. SKIN: Normal color. Warm and dry. No rashes or lesions. Capillary refill < 2 seconds Result Diagram: 03/14/17224903/14/172249 Results 24 hrs Laboratory Tests Test 03/14/17 22:50 White Blood Count 11.010^3/ul Red Blood Count 4.1010^6/ul Hemoglobin 13.1g/dl Hematocrit 38.6% Mean Corpuscular Volume 94.1fl Mean Corpuscular Hemoglobin 32.0pg Mean Corpuscular Hemoglobin Concent 33.9g/dl Red Cell Distribution Width 12.3% Platelet Count 64886^3/UL Mean Platelet Volume 11.5fl Neutrophils % 47.1% Lymphocytes % 39.9% Monocytes % 8.0% Eosinophils % 3.7% Basophils % 0.6% Nucleated Red Blood Cells % 0.0/100WBC Neutrophils # 5.210^3/ul Lymphocytes # 4.410^3/ul Monocytes # 0.910^3/ul Eosinophils # 0.410^3/ul Basophils # 0.110^3/ul Nucleated Red Blood Cells # 0.010^3/ul Urine Color YELLOW Urine Clarity SLIGHTLY CLOUDY Urine pH 6.0 Urine Specific [place] 1.026 Urine Ketones NEGATIVEmg/dL Urine Nitrite NEGATIVEmg/dL Urine Bilirubin NEGATIVEmg/dL Urine Urobilinogen NEGATIVEmg/dL Urine Leukocyte Esterase TRACELeu/ul Urine Microscopic RBC 2/HPF Urine Microscopic WBC 2/HPF Urine Squamous Epithelial Cells FEW/HPF Urine Hemoglobin NEGATIVEmg/dL Urine Glucose NEGATIVEmg/dL Urine Total Protein NEGATIVEmg/dl Sodium Level 139mmol/L Potassium Level 3.7mmol/L Chloride Level 103mmol/L Carbon Dioxide Level 28mmol/L Anion Gap 12 Blood Urea Nitrogen 16mg/dl Creatinine 0.83mg/dl Glucose Level 91mg/dl Calcium Level 9.4mg/dl Total Bilirubin 0.1mg/dl Direct Bilirubin 0.00mg/dl Indirect Bilirubin 0.1mg/dl Aspartate Amino Transf (AST/SGOT) 32IU/L Alanine Aminotransferase (ALT/SGPT) 46IU/L Alkaline Phosphatase 119IU/L Total Protein 8.1g/dl Albumin 4.3g/dl Globulin 3.80g/dl Albumin/Globulin Ratio 1.13 Lipase 136U/L Current Medications Medications (Trade) Dose Ordered Sig/López Route PRN Reason Start Time Stop Time Status Last Admin Dose Admin Ketorolac Tromethamine (Toradol) 30 mg ONCE STAT IM 03/14/17 23:29 03/14/17 23:31 DC 03/14/17 23:38 Procedures/MDM ER COURSE: I kept the patient and/or family informed of laboratory and diagnostic imaging results throughout the emergency room course. EKG, MONITORS, & DIAGNOSTIC IMAGING: [place] [address] Radiology Main Line: [phone] DIAGNOSTIC IMAGING REPORT Patient: NANO BARROW : 1970 Age: 46 Sex: F MR #: [id number] [facility] #: [id number] DOS: 03/14/17 2241 Ordering MD: NASEEM RUST PA-C Location: [facility] Room/Bed: PROCEDURE: CT ABDOMEN/PELVIS WITHOUT CONTRAST CLINICAL INDICATION: 46-year-old female with abdominal pain. TECHNIQUE: The study was performed utilizing a [employer] the Call VCT 64-slice CT scanner. Direct axial sections were obtained through the abdomen and pelvis without the use of intravenous contrast material. Sagittal and coronal reformations were obtained. One or more of the following dose reduction techniques were utilized: automated exposure control, adjustment of the mA and/ or kV according to patient's size or use of iterative reconstruction technique. The images were reviewed on a PACS workstation. CTD/vol = 14.1 mGy; Total Exam DLP = 854.3 mGy-cm. COMPARISON: CT abdomen/pelvis July 14, 2013; ultrasound right upper quadrant December 22, 2016. FINDINGS: There is mild scarring, bronchiectasis and small blebs within the left lower lobe similar in appearance to the patient's prior CT scan. There is no evidence for a focal infiltrate. There is no evidence for significant pleural effusion. The liver has a normal size and contour without focal areas of abnormal density. No intrahepatic nor extrahepatic biliary ductal dilatation is seen. Surgical clips are seen within the gallbladder fossa consistent with interval cholecystectomy. The pancreas is without areas of abnormal attenuation. The spleen is identified and has a normal size without abnormal density. The adrenal glands are unremarkable. The kidneys are without abnormal density. Mild prominence of the left renal collecting system is again noted without significant interval change. There is no evidence for nephroureterolithiasis. The urinary bladder contains urine. There is a minimal umbilical hernia present with an opening of 5 x 5 mm. There is infraumbilical scarring. There is mild retained stool throughout the colon without evidence for bowel obstruction.. The appendix is appears diminutive but is without abnormal thickening or surrounding inflammatory reaction. The uterus is unremarkable. There is a right ovarian cyst measuring approximately 2.3 x 2.6 x 3.0 cm. There is no significant free fluid. The aortoiliac vessels are without aneurysmal dilatation. The osseous structures are intact. IMPRESSION: 1. Left lower lobe bronchiectasis with mild scarring and small blebs without significant change. 2. Interval cholecystectomy. 3. Mild prominence of the left renal collecting system without significant change. 4. Mild retained stool throughout the colon without gross bowel obstruction. 5. No CT evidence for appendicitis. 6. Right ovarian cyst. .Jordan Oconnor MD, Date Time Electronically viewed and signed by .Jordan Oconnor MD, on 03/15/2017 00:42 .M/ CC: NASEEM RUST PA-C MEDICATIONS: Toradol. Tolerated well with no adverse reaction LAB INTERPRETATION: CBC showed no evidence of systemic infection or severe anemia. CMP showed no evidence of electrolyte abnormalities, severe acidosis, alkalosis, renal failure , or liver disease. Lipase showed no evidence of acute pancreatitis. UA showed leukocytes, nitrites or hematuria. Urine test was negative. MEDICAL DECISION MAKING: This is a 46-year-old female who presents with abdominal pain and anal itching. Vital signs were reviewed. Patient is afebrile. Patient is not hypoxic. Patient is not toxic or ill-appearing. Patient's lab work was within normal limits. I have low suspicion for acute abdomen. Patient has constipation. Low suspicion for ACS, AAA, perforated ulcer, bowel obstruction, cholecystitis, choledocholithiasis, cholangitis, pancreatitis, hepatic abscess, appendicitis, diverticulitis, gastroenteritis, hepatitis, peptic ulcer disease, had improvement in symptoms after Toradol DISCHARGE: At this time, patient is stable for discharge and outpatient management with no new complaints during the ER course. Patient was sent home with be of laboratory studies, imaging studies, Colace and Anusol cream. Patient will be discharged home with instructions to recheck for new or worsening symptoms such as fever, nausea, weakness, LOC and to follow up with primary care in the next 1 -2 days. Patient was advised to return to the ER for any new or worsening symptoms. Plan was discussed and patient and/or family understands and agrees. Home instructions were given. Departure Diagnosis: Primary Impression: Abdominal pain Abdominal location: lower abdomen, unspecified Qualified Code: R10.30 - Lower abdominal pain Condition: Stable NASEEM RUST PA-C Mar 14, 2017 23:30
[2017-03-14 23:34] LABS: BASOPHIL # 0.1 10^3/ul (0.0-0.1); BASOPHILS % 0.6 % (0.0-2.0); EOSINOPHILS # 0.4 10^3/ul (0.0-0.5); EOSINOPHILS % 3.7 % (0.0-7.0); HEMATOCRIT 38.6 % (37.0-47.0); HEMOGLOBIN 13.1 g/dl (12.0-16.0); LYMPHOCYTES # 4.4 10^3/ul (0.8-2.9); LYMPHOCYTES % 39.9 % (15.0-51.0); MEAN CORPUSCULAR HGB CONC 33.9 g/dl (32.0-37.0); MEAN CORPUSCULAR VOLUME 94.1 fl (82.0-101.0); MEAN PLATELET VOLUME 11.5 fl (7.4-10.4); MONOCYTE # 0.9 10^3/ul (0.3-0.9); NEUTROPHIL # 5.2 10^3/ul (1.6-7.5); NEUTROPHILS % 47.1 % (39.0-77.0); PLATELET COUNT 299 10^3/UL (140-415); RED CELL DISTRIBUTION WIDTH 12.3 % (11.5-14.5)
[2017-03-14 23:41] LABS: ADD UMIC YES; UR ASCORBIC ACID NEGATIVE (NEGATIVE); UR BILIRUBIN (Dip) NEGATIVE (NEGATIVE); UR BLOOD (Dip) NEGATIVE (NEGATIVE); UR CLARITY SLIGHTLY CLOUDY (CLEAR); UR COLOR YELLOW (YELLOW); UR GLUCOSE (Dip) NEGATIVE (NEGATIVE); UR KETONES (Dip) NEGATIVE (NEGATIVE); UR LEUKOCYTE ESTERASE (Dip) TRACE Leu/ul (NEGATIVE); UR NITRITE (Dip) NEGATIVE (NEGATIVE); UR RBC 2 /HPF (0-5); UR SPECIFIC GRAVITY (Dip) 1.026 (1.003-1.030); UR SQUAMOUS EPITHELIAL CELL FEW /HPF (FEW); UR TOTAL PROTEIN (Dip) NEGATIVE (NEGATIVE); UR UROBILINOGEN (Dip) NEGATIVE (NEGATIVE)
[2017-03-14 23:43] LABS: ALBUMIN 4.3 g/dl (3.3-4.9); ALBUMIN/GLOBULIN RATIO 1.13; BILIRUBIN,INDIRECT 0.1 mg/dl (0-1.1); BILIRUBIN,TOTAL 0.1 mg/dl (0.2-1.3); CALCIUM 9.4 mg/dl (8.4-10.2); CREATININE 0.83 mg/dl (0.44-1.00); POTASSIUM 3.7 mmol/L (3.5-5.1); TOTAL PROTEIN 8.1 g/dl (6.1-8.1)
--- NOTE | 2017-03-15 00:42 | RADRPT ---
PROCEDURE: CT ABDOMEN/PELVIS WITHOUT CONTRAST CLINICAL INDICATION: 46-year-old female with abdominal pain. TECHNIQUE: The study was performed utilizing a GE Avant[employer]peed VCT 64-slice CT scanner. Direct axia l sections were obtained through the abdomen and pelvis without the use of intravenous contrast mate rial. Sagittal and coronal reformations were obtained. One or more of the following dose reduction t echniques were utilized: automated exposure control, adjustment of the mA and/or kV according to pat ient's size or use of iterative reconstruction technique. The images were reviewed on a PACS workst at[facility]. CTD/vol = 14.1 mGy; Total Exam DLP = 854.3 mGy-cm. COMPARISON: CT abdomen/pelvis July 14, 2013; ultrasound right upper quadrant December 22, 2016. FINDINGS: There is mild scarring, bronchiectasis and small blebs within the left lower lobe similar in appeara nce to the patient's prior CT scan. There is no evidence for a focal infiltrate. There is no eviden ce for significant pleural effusion. The liver has a normal size and contour without focal areas of abnormal density. No intrahepatic nor extrahepatic biliary ductal dilatation is seen. Surgical clip s are seen within the gallbladder fossa consistent with interval cholecystectomy. The pancreas is wi thout areas of abnormal attenuation. The spleen is identified and has a normal size without abnorma l density. The adrenal glands are unremarkable. The kidneys are without abnormal density. Mild promi nence of the left renal collecting system is again noted without significant interval change. There is no evidence for nephroureterolithiasis. The urinary bladder contains urine. There is a minimal um bilical hernia present with an opening of 5 x 5 mm. There is infraumbilical scarring. There is mild retained stool throughout the colon without evidence for bowel obstruction.. The appendix is appear s diminutive but is without abnormal thickening or surrounding inflammatory reaction. The uterus is unremarkable. There is a right ovarian cyst measuring approximately 2.3 x 2.6 x 3.0 cm. There is no significant free fluid. The aortoiliac vessels are without aneurysmal dilatation. The osseous struct ures are intact. IMPRESSION: 1. Left lower lobe bronchiectasis with mild scarring and small blebs without significant change. 2. Interval cholecystectomy. 3. Mild prominence of the left renal collecting system without significant change. 4. Mild retained stool throughout the colon without gross bowel obstruction. 5. No CT evidence for appendicitis. 6. Right ovarian cyst. .Jordan Oconnor MD, Date Time Electronically viewed and signed by .Jordan Oconnor MD, MD on 03/15/2017 00:42 .M/
[2017-03-15] MEDS ORDERED: DOCU-144 PO (00:52)
[2017-03-15] MEDS ORDERED: HYDR25SU23 PR (00:53)
[2017-03-15 00:58] VITALS: BP 135/63; PULSE 69; RESP 20
== END 2017-03-15 00:59 | disposition home or self-care (01) ==
LOC: FTE 21:03
DX: R10.31 Right lower quadrant pain (principal); Z79.82 Long term (current) use of aspirin
CPT/HCPCS: 36415; 74176; 80053; 81001; 83690; 85025; 96372; J1885; Z7502

== ENCOUNTER 2017-03-25 22:03 | Emergency (ER) | payer SELFPAY ==
[~2017-03-25] VITALS: Ht 162.6 cm; Wt 80.0 kg
[~2017-03-25 22:03] MED LIST changes: +DOCU-144 PO; +HYDR25SU23 PR
[2017-03-25 22:23] VITALS: Ht 162.6 cm; Wt 80.0 kg
== END 2017-03-26 02:00 | disposition left against medical advice (07) ==
LOC: FTE 22:03
DX: Z53.21 Procedure and treatment not carried out due to patient leaving prior to being seen by health care provider (principal)

== ENCOUNTER 2017-05-23 13:01 | Emergency (ER) | payer OTHER ==
[~2017-05-23] VITALS: Wt 81.0 kg
[2017-05-23] MEDS ORDERED: KETOROLAC 60 MG INJ IM STA (13:56)
[2017-05-23 14:59] LABS: URINE BLOOD (Dip) POC 3+ (NEGATIVE)
--- NOTE | 2017-05-23 15:45 | RADRPT ---
PROCEDURE: US Pelvis. CLINICAL INDICATION: pelvic pain TECHNIQUE: Multiple sonographic images of the pelvis were obtained utilizing a transabdominal and endovaginal technique. The images were reviewed on a PACS workstation. COMPARISON: US PELVIS 11/27/2016 FINDINGS: The uterus is normal in size with a normal appearance of the myometrium. The uterus measures 9.7 x 6.6 x 7.6 cm. The endometrial stripe is homogeneous in appearance and has the thickness of 14 mm. The ovaries are normal in size and echogenicity. Normal Doppler flow is identified in both ovaries. The right ovary measures 2.7 x 2.2 x 2.4 cm. The left ovary measures 3.7 x 1.9 x 2.6 cm. There is a 2.2 cm simple cyst in the left ovary. No free fluid is present within the pelvis. RPTAT: AA IMPRESSION: Small simple cyst in the left ovary. Otherwise unremarkable. .Erwin Escamilla MD, MD Date Time Electronically viewed and signed by .Erwin Escamilla MD, on 05/23/2017 15:45 .S/
[2017-05-23 15:57] LABS: BASOPHIL # 0.1 10^3/ul (0.0-0.1); BASOPHILS % 0.6 % (0.0-2.0); EOSINOPHILS # 0.3 10^3/ul (0.0-0.5); EOSINOPHILS % 2.9 % (0.0-7.0); HEMATOCRIT 35.7 % (37.0-47.0); HEMOGLOBIN 12.6 g/dl (12.0-16.0); LYMPHOCYTES # 3.6 10^3/ul (0.8-2.9); MEAN CORPUSCULAR HEMOGLOBIN 31.8 pg (29.0-33.0); MEAN CORPUSCULAR HGB CONC 35.3 g/dl (32.0-37.0); MEAN CORPUSCULAR VOLUME 90.2 fl (82.0-101.0); MONOCYTE # 0.8 10^3/ul (0.3-0.9); MONOCYTES % 7.7 % (0.0-11.0); NEUTROPHIL # 5.9 10^3/ul (1.6-7.5); PLATELET COUNT 323 10^3/UL (140-415); RED BLOOD COUNT 3.96 10^6/ul (4.20-5.40); RED CELL DISTRIBUTION WIDTH 13.2 % (11.5-14.5); WHITE BLOOD COUNT 10.8 10^3/ul (4.8-10.8)
[2017-05-23] MEDS ORDERED: IBUP-1542 PO (16:03)
[2017-05-23 16:11] VITALS: BP 117/64; PULSE 70; RESP 19; TEMP 98.1
--- NOTE | 2017-05-23 16:11 | ERD ---
ER Documentation Chief Complaint Chief Complaint VAG BLEEDING [id number] PELVIC PAIN 3PADS/DAY HPI This is a 46-year-old female presents to the ER with vaginal bleeding for the last 2 weeks. Patient states that she also has crampy pelvic pain as if she is having a bad period. Patient is using 3 pads a day. Patient went to go see her [employer]LE[employer] who put her on medroxyprogesterone, is been taking it for the last 3 days however states she has seen no improvement. Patient denies any dizziness, chest pain, shortness of breath. ROS 12 point review of systems was done, all negative except per HPI. Medications Home Meds Active Scripts Ibuprofen* (Motrin*) 600 Mg Tab, 600 MG PO Q6, #30 TAB Prov:JOMAR BLANCO 05/23/17 Hydrocortisone Acetate (Anusol-Hc) 25 Mg Supp.rect, 1 SUPP RI BID Y for HEMORROID PAIN/ITCHING, #12 SUPP.RECT Prov:NASEEM RUST PA-C 03/15/17 Docusate Sodium* (Colace*) 100 Mg Capsule, 100 MG PO TID, #30 CAP Prov:NASEEM RUST PA-C 03/15/17 Cephalexin* (Keflex*) 500 Mg Capsule, 500 MG PO QID for 7 Days, CAP Prov:KAREEM GONZALES PA-C 02/14/17 Hydrocodone/Acetaminophen ([place] 10-325 Tablet) 1 Each Tablet, 1 TAB PO Q6H Y for PAIN, #20 TAB Prov:YI CARDOZA 02/06/17 Hydrocodone/Acetaminophen ([place] 5-325 Tablet) 1 Each Tablet, 1 TAB PO Q6H Y for PAIN, #7 TAB Prov:ATTILA COLVIN MD 01/31/17 Ibuprofen* (Motrin*) 600 Mg Tab, 600 MG PO Q6, #30 TAB Prov:ATTILA COLVIN MD 01/31/17 Dicyclomine Hcl* (Bentyl*) 10 Mg Capsule, 20 MG PO QID for PAIN, #60 CAP Prov:NELLY CORTEZ DO 12/22/16 Ferrous Sulfate* (Ferrous Sulfate*) 325 Mg Tabec, 325 MG PO BID, #60 TAB Prov:ARPITA COLLINS NP 11/27/16 Atorvastatin Calcium (Atorvastatin Calcium) 20 Mg Tablet, 20 MG PO HS for 30 Days, TAB Prov:JESUS MORALES MD, [facility] 10/18/16 Gabapentin* (Gabapentin*) 300 Mg Capsule, 300 MG PO QHS for 30 Days, CAP Prov:JESUS MORAELS MD, [facility] 10/18/16 Reported Medications Aspirin* (Aspirin* EC) 81 Mg Tablet.dr, 81 MG PO DAILY, TAB 10/22/16 Allergies Allergies: Coded Allergies: No Known Allergy (Unverified , 05/23/17) PMhx/Soc History of Surgery: Yes (TBL, X 2 C SECTIONS X 2 EAR SX, CHOLECYSTECTOMY) Anesthesia Reaction: No Hx Neurological Disorder: No Hx Respiratory Disorders: No Hx Cardiac Disorders: No Hx Psychiatric Problems: No Hx Miscellaneous Medical Probl: No Hx Alcohol Use: Yes Hx Substance Use: No Hx Tobacco Use: No Smoking Status: Never smoker Physical Exam Vitals Vital Signs Date Time Temp Pulse Resp B/P Pulse Ox O2 Delivery O2 Flow Rate FiO2 05/23/17 13:03 98.8 89 20 128/74 98 Physical Exam GENERAL: The patient is well developed and appropriate for usual state of health , in no apparent distress. HEENT: Atraumatic. CHEST: Clear to auscultation bilaterally. There are no rales, wheezes or rhonchi. HEART: Regular rate and rhythm. No murmurs, clicks, rubs or gallops. ABDOMEN: Soft, nontender and nondistended. Good bowel sounds. No rebound or guarding. No gross peritonitis. No gross organomegaly or masses. No Braswell sign or McBurney point tenderness. +pelvic pain BACK: No midline or flank tenderness. NEURO: Alert and oriented. Result Diagram: 05/23/17 1500 Results 24 hrs Laboratory Tests Test 05/23/17 14:57 05/23/17 15:00 Bedside Urine pH (LAB) 5.5 Bedside Urine Protein (LAB) 1+ Bedside Urine Glucose (UA) Negative Bedside Urine Ketones (LAB) Negative Bedside Urine Blood 3+ Bedside Urine Nitrite (LAB) Negative Bedside Urine Leukocyte Esterase (L Negative White Blood Count 10.810^3/ul Red Blood Count 3.9610^6/ul Hemoglobin 12.6g/dl Hematocrit 35.7% Mean Corpuscular Volume 90.2fl Mean Corpuscular Hemoglobin 31.8pg Mean Corpuscular Hemoglobin Concent 35.3g/dl Red Cell Distribution Width 13.2% Platelet Count 76738^3/UL Mean Platelet Volume 11.0fl Neutrophils % 55.0% Lymphocytes % 33.0% Monocytes % 7.7% Eosinophils % 2.9% Basophils % 0.6% Nucleated Red Blood Cells % 0.0/100WBC Neutrophils # 5.910^3/ul Lymphocytes # 3.610^3/ul Monocytes # 0.810^3/ul Eosinophils # 0.310^3/ul Basophils # 0.110^3/ul Nucleated Red Blood Cells # 0.010^3/ul Current Medications Medications (Trade) Dose Ordered Sig/López Route PRN Reason Start Time Stop Time Status Last Admin Dose Admin Ketorolac Tromethamine (Toradol) 60 mg ONCE STAT IM 05/23/17 13:56 05/23/17 13:58 DC 05/23/17 15:06 [place] [address] Radiology Main Line: [phone] DIAGNOSTIC IMAGING REPORT Patient: NANO BARROW : 1970 Age: 46 Sex: F MR #: [id number] DOS: 05/23/17 0000 Ordering MD: JOMAR BLANCO PA-C Location: [facility] Room/Bed: PROCEDURE: US Pelvis. CLINICAL INDICATION: pelvic pain TECHNIQUE: Multiple sonographic images of the pelvis were obtained utilizing a transabdominal and endovaginal technique. The images were reviewed on a PACS workstation. COMPARISON: US PELVIS 11/27/2016 FINDINGS: The uterus is normal in size with a normal appearance of the myometrium. The uterus measures 9.7 x 6.6 x 7.6 cm. The endometrial stripe is homogeneous in appearance and has the thickness of 14 mm. The ovaries are normal in size and echogenicity. Normal Doppler flow is identified in both ovaries. The right ovary measures 2.7 x 2.2 x 2.4 cm. The left ovary measures 3.7 x 1.9 x 2.6 cm. There is a 2.2 cm simple cyst in the left ovary. No free fluid is present within the pelvis. RPTAT: AA IMPRESSION: Small simple cyst in the left ovary. Otherwise unremarkable. .Erwin Escamilla MD, MD Date Time Electronically viewed and signed by .Erwin Escamilla MD, on 05/23/2017 15: 45 .S/ CC: JOMAR BLANCO Procedures/MDM This is a 46-year-old female that presents to the ER with vaginal bleeding and pelvic pain, patient likely has dysfunctional uterine bleeding she is hemodynamically stable and does not have anemia. she does have a small cyst, however not the cause of her dysfunctional uterine bleeding her pain was controlled in the ER. She is told to continue with the medication prescribed to her by her [employer], I gave her ibuprofen for the pain. Patient is to follow- up with her primary care doctor within 1-2 days or return to ER sooner if symptoms worsen. My medical decision making shared with the patient understands and agrees with plan. Departure Diagnosis: Primary Impression: Dysfunctional uterine bleeding Condition: Stable Patient Instructions: Dysfunctional Uterine Bleeding Additional Instructions: Llame al doctor MAANA y leno eric RAFAELA PARA DENTRO DE 1-2 BURNETT.Dgale a la secretaria que nosotros le instruimos hacer esta rafaela.Avise o llame si chapin condicin se empeora antes de la rafaela. Regresa aqui si peor o no mejor. JOMAR BLANCO May 23, 2017 16:11
== END 2017-05-23 16:13 | disposition home or self-care (01) ==
LOC: FTE 13:01
DX: N93.8 Other specified abnormal uterine and vaginal bleeding (principal); R10.2 Pelvic and perineal pain; Z79.82 Long term (current) use of aspirin
CPT/HCPCS: 76856; 81003; 85025; 96372; J1885; Z7502

== ENCOUNTER 2017-06-04 13:50 | Emergency (ER) | payer OTHER ==
[~2017-06-04] VITALS: Ht 165.1 cm; Wt 81.9 kg
[2017-06-04 13:54] VITALS: Ht 165.1 cm; Wt 81.9 kg
[2017-06-04] MEDS ORDERED: HYDROCODONE/APAP (5/325) TAB PO ONE (15:30)
--- NOTE | 2017-06-04 15:31 | ERD ---
ER Documentation Chief Complaint Chief Complaint vag bleed x 1 month , dizziness HPI This a 46-year-old female who presents emergency department today complaining of vaginal bleeding for the past month. Patient states that she had been taking medication from her coach tour driver that she finished that and she did go back to her coach tour driver after her last visit here in the ER and he did some sort of "biopsy or Pap and was told everything was fine". States that she is now having some dizziness because of it. States that she has some lower pelvic pain. States she has a headache. States he has a history of migraines and gastritis. Denies any fevers or chills ROS All systems reviewed and are negative except as per history of present illness. Medications Home Meds Active Scripts Acetaminophen* (Tylophen*) 500 Mg Capsule, 1 CAP PO Q6H Y for PAIN AND OR ELEVATED TEMP, #30 CAP Prov:CARINA JAIN PA-C 06/04/17 Ibuprofen* (Motrin*) 600 Mg Tab, 600 MG PO Q6, #30 TAB Prov:JOMAR BLANCO 05/23/17 Hydrocortisone Acetate (Anusol-Hc) 25 Mg Supp.rect, 1 SUPP [place] BID Y for HEMORROID PAIN/ITCHING, #12 SUPP.RECT Prov:NASEEM RUST PA-C 03/15/17 Docusate Sodium* (Colace*) 100 Mg Capsule, 100 MG PO TID, #30 CAP Prov:NASEEM RUST PA-C 03/15/17 Cephalexin* (Keflex*) 500 Mg Capsule, 500 MG PO QID for 7 Days, CAP Prov:KAREEM GONZALES PA-C 02/14/17 Hydrocodone/Acetaminophen ([place] 10-325 Tablet) 1 Each Tablet, 1 TAB PO Q6H Y for PAIN, #20 TAB Prov:YI CARDOZA 02/06/17 Hydrocodone/Acetaminophen ([place] 5-325 Tablet) 1 Each Tablet, 1 TAB PO Q6H Y for PAIN, #7 TAB Prov:ATTILA COLVIN MD 01/31/17 Ibuprofen* (Motrin*) 600 Mg Tab, 600 MG PO Q6, #30 TAB Prov:ATTILA COLVIN MD 01/31/17 Dicyclomine Hcl* (Bentyl*) 10 Mg Capsule, 20 MG PO QID for PAIN, #60 CAP Prov:NELLY CORTEZMichele DO 12/22/16 Ferrous Sulfate* (Ferrous Sulfate*) 325 Mg Tabec, 325 MG PO BID, #60 TAB Prov:ARPITA COLLINS NP 11/27/16 Atorvastatin Calcium (Atorvastatin Calcium) 20 Mg Tablet, 20 MG PO HS for 30 Days, TAB Prov:JESUS MORALES MD, [facility] 10/18/16 Gabapentin* (Gabapentin*) 300 Mg Capsule, 300 MG PO QHS for 30 Days, CAP Prov:JESUS MORALES MD, [facility] 10/18/16 Reported Medications Aspirin* (Aspirin* EC) 81 Mg Tablet.dr, 81 MG PO DAILY, TAB 10/22/16 Allergies Allergies: Coded Allergies: No Known Allergy (Unverified , 05/23/17) PMhx/Soc Medical and Surgical Hx: pt denies Medical Hx History of Surgery: Yes (TBL, X 2 C SECTIONS X 2 EAR SX, CHOLECYSTECTOMY) Anesthesia Reaction: No Hx Neurological Disorder: No Hx Respiratory Disorders: No Hx Cardiac Disorders: No Hx Psychiatric Problems: No Hx Miscellaneous Medical Probl: No Hx Alcohol Use: Yes (socially) Hx Substance Use: No Hx Tobacco Use: No Smoking Status: Never smoker Physical Exam Vitals Vital Signs Date Time Temp Pulse Resp B/P Pulse Ox O2 Delivery O2 Flow Rate FiO2 06/04/17 13:54 98.1 71 18 124/69 98 Physical Exam Const: NAD Head: Atraumatic Eyes: Normal Conjunctiva ENT: Normal External Ears, Nose and Mouth. Neck: Full range of motion..~ No meningismus. Resp: Clear to auscultation bilaterally Cardio: Regular rate and rhythm, no murmurs Abd: Soft,mild pelvic tenderness non distended. Normal bowel sounds. No tenderness at McBurney's Skin: No petechiae or rashes Back: No midline or flank tenderness Ext: No cyanosis, or edema Neur: Awake and alert Psych: Normal Mood and Affect Result Diagram: 06/04/17 1613 06/04/17 1613 Results 24 hrs Laboratory Tests Test 06/04/17 15:20 06/04/17 16:13 Urine Color YELLOW Urine Clarity CLEAR Urine pH 6.0 Urine Specific [place] 1.009 Urine Ketones NEGATIVEmg/dL Urine Nitrite NEGATIVEmg/dL Urine Bilirubin NEGATIVEmg/dL Urine Urobilinogen NEGATIVEmg/dL Urine Leukocyte Esterase NEGATIVELeu/ul Urine Microscopic RBC > 182/HPF Urine Microscopic WBC 9/HPF Urine Hemoglobin 3+mg/dL Urine Glucose NEGATIVEmg/dL Urine Total Protein NEGATIVEmg/dl White Blood Count 10.910^3/ul Red Blood Count 3.5410^6/ul Hemoglobin 11.2g/dl Hematocrit 32.3% Mean Corpuscular Volume 91.2fl Mean Corpuscular Hemoglobin 31.6pg Mean Corpuscular Hemoglobin Concent 34.7g/dl Red Cell Distribution Width 13.3% Platelet Count 12597^3/UL Mean Platelet Volume 11.0fl Neutrophils % 52.8% Lymphocytes % 34.3% Monocytes % 6.1% Eosinophils % 5.1% Basophils % 0.7% Nucleated Red Blood Cells % 0.0/100WBC Neutrophils # 5.810^3/ul Lymphocytes # 3.710^3/ul Monocytes # 0.710^3/ul Eosinophils # 0.610^3/ul Basophils # 0.110^3/ul Nucleated Red Blood Cells # 0.010^3/ul Sodium Level 140mmol/L Potassium Level 3.7mmol/L Chloride Level 103mmol/L Carbon Dioxide Level 28mmol/L Anion Gap 13 Blood Urea Nitrogen 11mg/dl Creatinine 0.58mg/dl Glucose Level 90mg/dl Calcium Level 9.4mg/dl Total Bilirubin 0.3mg/dl Direct Bilirubin 0.00mg/dl Indirect Bilirubin 0.3mg/dl Aspartate Amino Transf (AST/SGOT) 19IU/L Alanine Aminotransferase (ALT/SGPT) 32IU/L Alkaline Phosphatase 117IU/L Total Protein 7.6g/dl Albumin 4.0g/dl Globulin 3.60g/dl Albumin/Globulin Ratio 1.11 Current Medications Medications (Trade) Dose Ordered Sig/López Route PRN Reason Start Time Stop Time Status Last Admin Dose Admin Acetaminophen/ Hydrocodone Bitart ([place] (5/325)) 1 tab ONCE ONCE PO 06/04/17 15:30 06/04/17 15:31 DC 06/04/17 15:35 DIAGNOSTIC IMAGING REPORT Patient: NANO BARROW : 1970 Age: 46 Sex: F MR #: [id number] DOS: 06/04/17 0000 Ordering MD: CARINA JAIN PA-C Location: [facility] Room/Bed: PROCEDURE: US Pelvis CLINICAL INDICATION: 1-month history of vaginal bleeding. TECHNIQUE: Transabdominal and transvaginal sonographic evaluation of the pelvis was performed. COMPARISON: Pelvic ultrasound from 05/23/2017. FINDINGS: Myometrium is homogeneous in echotexture without fibroids. There are multiple Nabothian cysts. Endometrium is normal in thickness without a focal abnormality. Both ovaries are normal in size and echotexture. Multiple ovarian follicles are seen on the left. The largest measures 1.7 cm. Normal flow to both ovaries. No adnexal mass. No free pelvic fluid. MEASUREMENTS: Uterus: 10.9 x 5.9 x 6.6 cm, anteverted. Endometrium: 9.6 mm. Right ovary size: 1.8 x 1.6 x 3.3 cm. Left ovary size: 3.4 x 1.8 x 2.7 cm. IMPRESSION: 1. Interval decrease in size of a left ovarian cyst now 1.7 cm, likely a follicle. RPTAT: AACC Physician Lilly Date Time Electronically viewed and signed by Jude Acevedo Physician on 06/04/2017 16: 29 JH/ CC: CARINA JAIN PA-C Procedures/MDM This a 46-year-old female who presents emergency department today for vaginal bleeding for a month. States it is causing her to feel dizzy. Upon review of patient's medical records patient was seen here on May 23, 2017 for the same complaint. At that time her hemoglobin was 12.6. It was documented at that time that she had been taking medroxyprogesterone. Patient was discharged home and instructed to follow back up with her coach tour driver which apparently the patient did she had some sort of Pap or biopsy and was told "that everything was fine". Patient indicated that she finished her medication but she is still continue to have some bleeding that is why she is return to the emergency department. Patient had some very mild pelvic tenderness on physical exam however given her reports of bleeding for the past month I did repeat an ultrasound as well as laboratory work Laboratory workup shows a very mildly elevated white blood cell count. Her hemoglobin is 11.2 decreased from 12.6, 2 weeks ago. Electrolytes are within normal limits. Glucose is within normal limits. Liver enzymes are within normal limits. UA is negative for infection test is negative Pelvic ultrasound shows interval decrease in the size of the left ovarian cyst now 1.7 cm likely a follicle. There is normal flow to both ovaries and no adnexal mass and no free fluid. I have low suspicion for ectopic , tubo-ovarian abscess, ovarian torsion. Patient has a history of gastritis for which she takes omeprazole and therefore I gave her a Bigfork here in the emergency department. Patient was complaining of dizziness and therefore did obtain EKG. EKG read and interpreted by Dr. Feliz. Rate [address] elevation. No QT prolongation. Normal sinus rhythm. Low suspicion for acute HI, PE, pericarditis. I do not feel that patient requires a head CT scan at this time. Patient has a history of migraines for which she takes medication of low suspicion for acute hemorrhage, mass, abscess, meningitis. Patient is smiling and walking around the emergency department Symptoms at this time is consistent with dysfunctional uterine bleeding. She is hemodynamically stable. She does not require transfusion at this time. This been explained to the patient. I have explained to the patient that she does need to follow back up with her coach tour driver and I will also give her referral information for other coach tour driver as well. At this time the patient is stable for discharge and outpatient management. Patient should follow up with their PCP in the next 1-2 days. They may return to the emergency department sooner for any persistent or worsening of symptoms. Patient understood and agreed with the plan. Departure Diagnosis: Primary Impression: Vaginal bleeding Condition: CARINA Keating PA-C Jun 04, 2017 15:31
[2017-06-04 16:26] LABS: BASOPHIL # 0.1 10^3/ul (0.0-0.1); BASOPHILS % 0.7 % (0.0-2.0); EOSINOPHILS # 0.6 10^3/ul (0.0-0.5); EOSINOPHILS % 5.1 % (0.0-7.0); HEMATOCRIT 32.3 % (37.0-47.0); HEMOGLOBIN 11.2 g/dl (12.0-16.0); LYMPHOCYTES # 3.7 10^3/ul (0.8-2.9); LYMPHOCYTES % 34.3 % (15.0-51.0); MEAN CORPUSCULAR HEMOGLOBIN 31.6 pg (29.0-33.0); MEAN CORPUSCULAR HGB CONC 34.7 g/dl (32.0-37.0); MEAN CORPUSCULAR VOLUME 91.2 fl (82.0-101.0); MONOCYTE # 0.7 10^3/ul (0.3-0.9); MONOCYTES % 6.1 % (0.0-11.0); NEUTROPHIL # 5.8 10^3/ul (1.6-7.5); NEUTROPHILS % 52.8 % (39.0-77.0); PLATELET COUNT 286 10^3/UL (140-415); RED BLOOD COUNT 3.54 10^6/ul (4.20-5.40); RED CELL DISTRIBUTION WIDTH 13.3 % (11.5-14.5); WHITE BLOOD COUNT 10.9 10^3/ul (4.8-10.8)
[2017-06-04 16:28] LABS: ADD UMIC YES; UR ASCORBIC ACID NEGATIVE (NEGATIVE); UR BILIRUBIN (Dip) NEGATIVE (NEGATIVE); UR BLOOD (Dip) 3+ mg/dL (NEGATIVE); UR CLARITY CLEAR (CLEAR); UR COLOR YELLOW (YELLOW); UR GLUCOSE (Dip) NEGATIVE (NEGATIVE); UR KETONES (Dip) NEGATIVE (NEGATIVE); UR LEUKOCYTE ESTERASE (Dip) NEGATIVE Leu/ul (NEGATIVE); UR NITRITE (Dip) NEGATIVE (NEGATIVE); UR RBC > 182 /HPF (0-5); UR SPECIFIC GRAVITY (Dip) 1.009 (1.003-1.030); UR TOTAL PROTEIN (Dip) NEGATIVE (NEGATIVE); UR UROBILINOGEN (Dip) NEGATIVE (NEGATIVE)
--- NOTE | 2017-06-04 16:29 | RADRPT ---
PROCEDURE: US Pelvis CLINICAL INDICATION: 1-month history of vaginal bleeding. TECHNIQUE: Transabdominal and transvaginal sonographic evaluation of the pelvis was performed. COMPARISON: Pelvic ultrasound from 05/23/2017. FINDINGS: Myometrium is homogeneous in echotexture without fibroids. There are multiple Nabothian cysts. Endometrium is normal in thickness without a focal abnormality. Both ovaries are normal in size and echotexture. Multiple ovarian follicles are seen on the left. Th e largest measures 1.7 cm. Normal flow to both ovaries. No adnexal mass. No free pelvic fluid. MEASUREMENTS: Uterus: 10.9 x 5.9 x 6.6 cm, anteverted. Endometrium: 9.6 mm. Right ovary size: 1.8 x 1.6 x 3.3 cm. Left ovary size: 3.4 x 1.8 x 2.7 cm. IMPRESSION: 1. Interval decrease in size of a left ovarian cyst now 1.7 cm, likely a follicle. RPTAT: A[facility] Physician Lilly Date Time Electronically viewed and signed by Physician Lilly on 06/04/2017 16:29 /
[2017-06-04 16:49] LABS: ALBUMIN/GLOBULIN RATIO 1.11; BILIRUBIN,INDIRECT 0.3 mg/dl (0-1.1); BILIRUBIN,TOTAL 0.3 mg/dl (0.2-1.3); CALCIUM 9.4 mg/dl (8.4-10.2); CREATININE 0.58 mg/dl (0.44-1.00); POTASSIUM 3.7 mmol/L (3.5-5.1); TOTAL PROTEIN 7.6 g/dl (6.1-8.1)
[2017-06-04] MEDS ORDERED: ACET500C5 PO (17:16)
[2017-06-04 17:44] VITALS: BP 117/64; PULSE 76; RESP 19; TEMP 98.3
== END 2017-06-04 17:45 | disposition home or self-care (01) ==
LOC: FTE 13:50
DX: N93.9 Abnormal uterine and vaginal bleeding, unspecified (principal); R10.2 Pelvic and perineal pain; R42 Dizziness and giddiness; Z79.82 Long term (current) use of aspirin
CPT/HCPCS: 76830; 76856; 80053; 81001; 85025; 93005; Z7502; Z7610

== ENCOUNTER 2017-06-10 14:11 | Emergency (ER) | payer OTHER ==
[~2017-06-10] VITALS: Ht 167.6 cm; Wt 84.0 kg
[~2017-06-10 14:11] MED LIST changes: +ACET500C5 PO
[2017-06-10 14:32] VITALS: Ht 167.6 cm; Wt 84.0 kg
[2017-06-10] MEDS ORDERED: AZIT250T94 PO (16:41)
[2017-06-10] MEDS ORDERED: IBUP-1542 PO (16:42)
[2017-06-10] MEDS ORDERED: PHEN177S43 MT (16:42)
[2017-06-10] MEDS ORDERED: PROM6.25 PO (16:42)
--- NOTE | 2017-06-10 16:46 | ERD ---
ER Documentation Chief Complaint Chief Complaint FEVER , ST , STUFFY NOSE X 2 DAYS HPI This is a 46-year-old female presents to the ER with fever, cough, sore throat, stuffy nose, body pain and fever for the last 3 days. Patient states that her symptoms are worsening despite using [id number] products. Patient denies any chest pain or shortness of breath. She denies any wheezing. There are no sick contacts at home. Patient did get her flu shot this year. ROS 12 point review of systems was done, all negative except per HPI. Medications Home Meds Active Scripts Ibuprofen* (Ibuprofen*) 600 Mg Tablet, 600 MG PO Q6 for 3 Days, TAB Prov:JOMAR BLANCO 06/10/17 Phenol* (Chloraseptic* Brigantine) 177 Ml Brigantine.pump, 2 SPRAY MT Q2H Y for SORE THROAT for 3 Days, BOTTLE Prov:JOMAR BLANCO 06/10/17 Promethazine Hcl* (Promethazine Hcl* Syrup) 6.25 Mg/5 Ml Syrup, 12.5 MG PO Q6H Y for COUGH, #120 ML Prov:JOMAR BLANCO 06/10/17 Azithromycin* (Zithromax*) 250 Mg Tablet, 250 MG PO .ZPACK DIRECTED, #6 TAB TAKE 500 MG (2 TABS) THE FIRST DAY THEN 250 MG (1 TAB) DAYS 2-5 Prov:JOMAR BLANCO 06/10/17 Acetaminophen* (Tylophen*) 500 Mg Capsule, 1 CAP PO Q6H Y for PAIN AND OR ELEVATED TEMP, #30 CAP Prov:CARINA JAIN PA-C 06/04/17 Ibuprofen* (Motrin*) 600 Mg Tab, 600 MG PO Q6, #30 TAB Prov:JOMAR BLANCO 05/23/17 Hydrocortisone Acetate (Anusol-Hc) 25 Mg Supp.rect, 1 SUPP OH BID Y for HEMORROID PAIN/ITCHING, #12 SUPP.RECT Prov:NASEEM RUST PA-C 03/15/17 Docusate Sodium* (Colace*) 100 Mg Capsule, 100 MG PO TID, #30 CAP Prov:NASEEM RUST PA-C 03/15/17 Cephalexin* (Keflex*) 500 Mg Capsule, 500 MG PO QID for 7 Days, CAP Prov:KAREEM GONZALES PA-C 02/14/17 Hydrocodone/Acetaminophen ([place] 10-325 Tablet) 1 Each Tablet, 1 TAB PO Q6H Y for PAIN, #20 TAB Prov:NANIYI Rosario 02/06/17 Hydrocodone/Acetaminophen ([place] 5-325 Tablet) 1 Each Tablet, 1 TAB PO Q6H Y for PAIN, #7 TAB Prov:ATTILA COLVIN MD 01/31/17 Ibuprofen* (Motrin*) 600 Mg Tab, 600 MG PO Q6, #30 TAB Prov:ATTILA COLVIN MD 01/31/17 Dicyclomine Hcl* (Bentyl*) 10 Mg Capsule, 20 MG PO QID for PAIN, #60 CAP Prov:NELLY CORTEZ DO 12/22/16 Ferrous Sulfate* (Ferrous Sulfate*) 325 Mg Tabec, 325 MG PO BID, #60 TAB Prov:ARPITA COLLINS NP 11/27/16 Atorvastatin Calcium (Atorvastatin Calcium) 20 Mg Tablet, 20 MG PO HS for 30 Days, TAB Prov:JESUS MORALES MD, [facility] 10/18/16 Gabapentin* (Gabapentin*) 300 Mg Capsule, 300 MG PO QHS for 30 Days, CAP Prov:JESUS MORALES MD, [facility] 10/18/16 Reported Medications Aspirin* (Aspirin* EC) 81 Mg Tablet.dr, 81 MG PO DAILY, TAB 10/22/16 Allergies Allergies: Coded Allergies: No Known Allergy (Unverified , 05/23/17) PMhx/Soc History of Surgery: Yes (TBL, X 2 C SECTIONS X 2 EAR SX, CHOLECYSTECTOMY) Anesthesia Reaction: No Hx Neurological Disorder: Yes (MIGRAINE JASMINE) Hx Respiratory Disorders: No Hx Cardiac Disorders: No Hx Psychiatric Problems: No Hx Miscellaneous Medical Probl: Yes (GASTRIRIS) Hx Alcohol Use: No Hx Substance Use: No Hx Tobacco Use: No Smoking Status: Never smoker Physical Exam Vitals Vital Signs Date Time Temp Pulse Resp B/P Pulse Ox O2 Delivery O2 Flow Rate FiO2 06/10/17 14:32 98.3 77 18 116/73 98 Physical Exam GENERAL: The patient is well-developed, well-nourished, in no acute distress. NECK: Cervical spine is non tender with no step off. Supple, no nuchal rigidity HEENT: Atraumatic. Pupils equal, round and reactive to light. Extraocular muscles are grossly intact. Conjunctivae pink, no discharge. Bilateral tympanic membranes are clear with no evidence of erythema, effusion or dulling of the light reflex. Tonsilar erythema with no exudates or uvular deviation. Clear rhinorrhea. RESPIRATORY: Clear to auscultation bilaterally. There are no rales, wheezes or rhonchi. HEART: Regular rate and rhythm. No murmurs, clicks, rubs or gallops. EXTREMITIES: No clubbing or cyanosis. Full range of motion. Grossly neurovascularly intact. NEUROLOGIC: Alert and oriented. Cranial nerves II through XII are intact. SKIN: There is no rash. The skin is warm and dry. Procedures/MDM Differential diagnosis includes but is not limited to; Viral URI, allergic rhinitis, bronchitis, pertussis,pneumonia. Patient will be treated for possible bacterial upper respiratory infection. He sent home with azithromycin, promethazine, throat lozenges and ibuprofen clinical suspicion for pneumonia is low as patient appears well, is not hypoxic or in any respiratory distress. Additionally, patients physical examination is benign. Plan was discussed with patient they understand and agree. Patient needs to follow up with PCP in 1-2 days or return to ER sooner if symptoms worsen. Departure Diagnosis: Primary Impression: URI (upper respiratory infection) Condition: Stable Patient Instructions: Preventing Common Respiratory Infections Additional Instructions: Llame al doctor MARLEE y leno eric RAFAELA PARA DENTRO DE 1-2 BURNETT.Dgale a la secretaria que nosotros le instruimos hacer esta rafaela.Avise o llame si chapin condicin se empeora antes de la rafaela. Regresa aqui si peor o no mejor. JOMAR BLANCO Jun 10, 2017 16:46
== END 2017-06-10 16:50 | disposition home or self-care (01) ==
LOC: FTE 14:11
DX: J06.9 Acute upper respiratory infection, unspecified (principal); Z79.82 Long term (current) use of aspirin
CPT/HCPCS: 99284

== ENCOUNTER 2017-08-13 02:20 | Emergency (ER) | END 2017-08-13 06:24 | disposition home or self-care (01) ==

== ENCOUNTER 2017-09-01 12:20 | Emergency (ER) | END 2017-09-01 13:09 | disposition home or self-care (01) ==

== ENCOUNTER 2017-10-10 09:59 | Emergency (ER) | END 2017-10-10 13:03 | disposition home or self-care (01) ==

== ENCOUNTER 2018-05-21 10:41 | Emergency (ER) | END 2018-05-21 16:30 | disposition home or self-care (01) ==

== ENCOUNTER 2018-11-26 14:06 | Emergency (ER) | payer OTHER ==
[~2018-11-26] VITALS: Ht 167.6 cm; Wt 80.0 kg
[~2018-11-26 14:06] MED LIST changes: +ABCC1C PO; -ACET500C5 PO; -ASPI-664 PO; +ASPI-817 PO; +ATOR20TA38 PO; -ATOR20TA65 PO; -CEPH-443 PO; -DICY10CA60 PO; -DOCU-144 PO; -FER325 PO; +GABA-526 PO; -GABA300C16 PO; -HYDR-902 PO; -HYDR-906 PO; -HYDR25SU23 PR; -IBUP-1542 PO; +PARO-2 PO
[2018-11-26 14:16] VITALS: Ht 167.6 cm; Wt 80.0 kg
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
[2018-11-26] MEDS ORDERED: DIPH25CA6 PO (14:50)
== END 2018-11-26 15:00 | disposition home or self-care (01) ==
LOC: FTE 14:06
DX: L29.9 Pruritus, unspecified (principal); Z79.82 Long term (current) use of aspirin
CPT/HCPCS: 99284

== ENCOUNTER 2019-04-03 23:39 | Emergency (ER) | payer OTHER ==
[~2019-04-03] VITALS: Ht 167.6 cm; Wt 79.9 kg
[~2019-04-03 23:39] MED LIST changes: +CEPH-443 PO; +DIPH25CA46 PO; +IBUP-1542 PO
[2019-04-03 23:43] VITALS: Ht 167.6 cm; Wt 79.9 kg
[2019-04-04] MEDS ORDERED: IBUPROFEN 600 MG TAB PO ONE (03:00)
[2019-04-04 03:46] VITALS: BP 120/70; PULSE 80; RESP 16
== END 2019-04-04 03:46 | disposition home or self-care (01) ==
LOC: FTE 23:39
DX: N39.0 Urinary tract infection, site not specified (principal); N92.0 Excessive and frequent menstruation with regular cycle; Z79.82 Long term (current) use of aspirin
CPT/HCPCS: 81003; 81025; Z7502; Z7610; 99283